=== PATIENT | male | born 1945 | race African-American/Black ===

== ENCOUNTER 2016-03-02 14:28 | Emergency (ER) ==
[2016-03-02 14:40] VITALS: BP 214/116; TEMP 98.6; BMI 43.2
[2016-03-02] MEDS ORDERED: SODIUM CHLORIDE 1,000 ML IV STA (14:50)
[2016-03-02] MEDS ORDERED: MORPHINE 2 MG/ML SYRINGE IVP STA (14:50)
--- NOTE | 2016-03-02 14:55 | ED.PDOC ---
General ED Provider: Dr. GRANT SANCHEZ JR Chief Complaint: Extremity Swelling/Pain Stated Complaint: BOTH LEGS RIGHT HAND SINCE SHAYNA GOUT MEDICATION swelling to both legs and right hand. treated for gout improvED until 2 days ago worse c/o pain [End]98.6 78 20 95% 214/116 11/21 TOOK tylenol and colchicine. swelling right hand and both legs.[End]right hand is painful and swollen patient states he is a little short of breath.[ End ] Time Seen by Physician: 14:49 Mode of Arrival: Wheelchair Information Source: Patient Exam Limitations: No limitations Primary Care Provider: JUAN J NATION Nursing and Triage Documentation Reviewed and Agree: No Review of Systems - Review Of Systems Constitutional: Reports: Malaise Eyes: Reports: No symptoms Ears, Nose, Mouth, Throat: Reports: No symptoms Respiratory: Reports: No symptoms Cardiac: Reports: Edema (right hand arm and both legs) GI: Reports: No symptoms : Reports: No symptoms Musculoskeletal: Reports: Joint swelling, Other Skin: Reports: Other Neurological: Reports: No symptoms Endocrine: Reports: No symptoms Hematologic/Lymphatic: Reports: No symptoms All Other Systems: Other Past Medical History - Past Medical History Endocrine: Reports: DM 2, Dyslipidemia Cardiovascular: Reports: Hypertension, CHF, DVT Respiratory: Reports: PE, Other (pulmonary edema) Hematological: Reports: Unknown Gastrointestinal: Reports: Unknown Genitourinary: Reports: CKD, Unknown Neuro/Psych: Reports: Unknown Musculoskeletal: Reports: Unknown Cancer: Reports: Unknown - Surgical History General Surgical History: Reports: CABG, Orthopedic (LEFT ELBOW FRACTURE REPAIR LEFT FEMUR HAD TO BE SHORTENED.), Unknown - Family History Family History: Reports: Unknown - Social History Smoking Status: Former smoker Hx Substance Use: No Alcohol Screening: None Physical Exam - Physical Exam Appearance: Ill-appearing, Obese Pain Distress: Moderate Neck: Supple Respiratory: Airway patent Skin: Warm (moist edema noted tender ankles and wrist) Neurological: Sensation intact, Motor intact, Reflexes intact, Cranial nerves intact, Alert, Oriented Psychiatric: Affect appropriate, Mood appropriate Interpretation - Radiology Interpretation Radiology Interpretation By: ED Physician Radiology Results: Positive Exam Interpreted: CXR (?LLL INFILTRATE) Re-Evaluation - Re-Evaluation Time of Re-Evaluation: 17:00 Status: Improved (blood pressure) Critical Care Note - Critical Care Note Total Time (mins): 15 Course - Course Hematology/Chemistry: 03/02/16 15:05 03/02/16 15:05 Orders, Labs, Meds: Lab Review 03/02/16 15:05 WBC 7.22 RBC 4.68 L Hgb 12.2 L Hct 39.6 L MCV 84.6 MCH 26.1 L MCHC 30.8 L RDW Coeff of Emerald 18.1 H Plt Count 288 Immature Gran % (Auto) 0.6 Neut % (Auto) 74.5 Lymph % (Auto) 11.4 [place] % (Auto) 11.4 H Eos % (Auto) 1.4 Baso % (Auto) 0.7 Immature Gran # (Auto) 0.0 Neut # 5.4 Lymph # 0.8 [place] # 0.8 Eos # 0.1 Baso # 0.1 D-Dimer 1.27 Sodium 143 Potassium 3.8 Chloride 102 Carbon Dioxide 32 H Anion Gap 12.8 BUN 25 H Creatinine 3.04 H Estimated GFR (MDRD) 25.00 BUN/Creatinine Ratio 8.22 Glucose 129 H Uric Acid 8.8 H Calcium 9.7 Total Bilirubin 0.45 AST 14 L ALT 11 L Alkaline Phosphatase 101 Total Creatine Kinase 69 Troponin I 0.1450 B-Natriuretic Peptide 409 H Total Protein 7.1 Albumin 3.0 L Globulin 4.1 Albumin/Globulin Ratio 0.73 Orders Category Date Time Status EKG-(ED ONLY) Stat CARDIO 03/02/16 14:50 Completed ED STATISTICAL ENGINEER APPLIED .ONCE EMERGENCY 03/02/16 14:50 Active ED IV/MEDIPORT/POWERPORT .ONCE EMERGENCY 03/02/16 14:50 Active ED IV/MEDIPORT/POWERPORT .ONCE EMERGENCY 03/02/16 15:08 Active B-TYPE NATRIURETIC PEPTIDE Stat LAB 03/02/16 15:05 Completed CBC W/ AUTO DIFF Stat LAB 03/02/16 15:05 Completed COMPREHENSIVE METABOLIC PANEL Stat LAB 03/02/16 15:05 Completed CREATINE KINASE Stat LAB 03/02/16 15:05 Completed D-DIMER Stat LAB 03/02/16 15:05 Completed TROPONIN I Stat LAB 03/02/16 15:05 Completed URIC ACID Stat LAB 03/02/16 15:05 Completed 0.9 % Sodium Chloride [Saline Flush] MEDS 03/02/16 14:50 Discontinued 1 syr IVF PRN PRN Bumetanide [Bumex] MEDS 03/02/16 15:08 Discontinued 1 mg IVP ONCE STA Colchicine [Colcrys] MEDS 03/02/16 16:29 Discontinued 0.6 mg PO ONCE STA Ketorolac Tromethamine [Toradol] MEDS 03/02/16 15:08 Discontinued 30 mg IVP ONCE STA Morphine Sulfate [Morphine 2 mg/ml Syringe] MEDS 03/02/16 14:50 Discontinued 2 mg IVP ONCE STA Sodium Chloride 0.9% [Sodium Chloride] 1,000 ml MEDS 03/02/16 14:50 Discontinued IV 100 mls/hr CHEST, 1V AP ONLY Stat RADS 03/02/16 14:50 Completed Medications Discontinued Medications Generic Name Dose Route Start Last Admin Trade Name Freq PRN Reason Stop Dose Admin Bumetanide 1 mg 03/02/16 15:08 03/02/16 15:23 Bumex IVP 03/02/16 15:09 1 mg ONCE STA Administration Colchicine 0.6 mg 03/02/16 16:29 03/02/16 16:44 Colcrys PO 03/02/16 16:30 0.6 mg ONCE STA Administration Sodium Chloride 1,000 mls @ 100 mls/hr 03/02/16 14:50 03/02/16 15:20 Sodium Chloride IV 03/03/16 00:49 100 mls/hr .Q10H STA Administration Ketorolac Tromethamine 30 mg 03/02/16 15:08 03/02/16 15:24 Toradol IVP 03/02/16 15:09 30 mg ONCE STA Administration Morphine Sulfate 2 mg 03/02/16 14:50 03/02/16 15:20 Morphine 2 Mg/Ml Syringe IVP 03/02/16 14:51 2 mg ONCE STA Administration Sodium Chloride 1 syr 03/02/16 14:50 03/02/16 15:26 Saline Flush IVF 1 syr PRN PRN Administration To flush IV Vital Signs: Temp Pulse Resp BP Pulse Ox 03/02/16 14:29 98.6 F 78 20 214/116 H 95 QUIN Risk Score QUIN Risk Score: Risk Score Odds of by 30D 0 0.1 (0.1-0.2) 1 0.3 (0.2-0.3) 2 0.4 (0.3-0.5) 3 0.7 (0.6-0.9) 4 1.2 (1.0-1.5) 5 2.2 (1.9-2.6) 6 3.0 (2.5-3.6) 7 4.8 (3.8-6.1) Departure - Departure Time of Disposition: 16:52 Disposition: HOME SELF-CARE Discharge Problem: Edema of the upper extremity, Edema of lower extremity Gout attack Qualifiers: Gout site: hand Gout etiology: unspecified cause Laterality: right Qualifier Code: (M10.9) Gout, unspecified Instructions: Low Purine Diet (ED), Gout (ED) Condition: Good Pt referred to PMD for follow-up: Yes Additional Instructions: Please follow-up with Dr. Nation in 1-5 days. discuss colchicine with PMD and consider renal consult for medication parameters discuss renal consult with Dr Nation may need to see Dr Leahy may use [place] for pain not controlled Prescriptions: Hydrocodone Bit/Acetaminophen [[place] 5-325] 1 - 2 tab PO Q6HR PRN #20 tablet PRN Reason: pain Colchicine 0.6 mg PO Q2-3H PRN #4 tablet PRN Reason: gout symptoms Allergies/Adverse Reactions: Allergies Penicillins Adverse Reaction (Verified 03/02/16 14:37) Home Medications: Ambulatory Orders Albuterol Sulfate [Proair Hfa] 1 puff INH DAILY 12/17/13 Mometasone Furoate [Nasonex] 1 spray INH DAILY 12/17/13 Nebivolol HCl [Bystolic] 20 mg PO DAILY 12/17/13 Nitroglycerin [Nitrostat] 1 tab PO PRN PRN 12/17/13 Pantoprazole Sodium [Protonix] 1 tab PO DAILY 12/17/13 Apixaban [Eliquis] 2.5 mg PO BID #180 tablet 04/14/15 Ezetimibe [Zetia] 10 mg PO DAILY 04/22/15 Hydralazine HCl 50 mg PO TID #90 tablet 08/09/15 Linagliptin [Tradjenta] 5 mg PO DAILY #30 tablet 08/09/15 Metolazone [Zaroxolyn] 2.5 mg PO DAILY #30 tablet 08/09/15 Bumetanide [Bumex] 1 mg PO MOWEFRSA 09/01/15 Potassium Chloride [K-Tab ER] 10 meq PO MOWEFRSA 09/01/15 Colchicine 0.6 mg PO Q2-3H PRN #4 tablet 03/02/16 Hydrocodone Bit/Acetaminophen [[place] 5-325] 1 - 2 tab PO Q6HR PRN #20 tablet
[2016-03-02] MEDS ORDERED: BUMEX IVP STA (15:08)
[2016-03-02] MEDS ORDERED: TORADOL IVP STA (15:08)
[2016-03-02 15:16] LABS: BASOPHILS # (AUTO) 0.1 K/uL (0-0.2); BASOPHILS % (AUTO) 0.7 % (0.0-3.0); EOSINOPHILS # (AUTO) 0.1 K/ul (0.0-0.7); EOSINOPHILS % (AUTO) 1.4 % (0.0-7.0); HEMATOCRIT 39.6 % (42.0-52.0); HEMOGLOBIN 12.2 g/dl (14.0-18.0); IMMATURE GRANULOCYTE % (AUTO) 0.6 % (0.0-5.0); LYMPHOCYTES # (AUTO) 0.8 K/uL (0.60-3.4); LYMPHOCYTES % (AUTO) 11.4 (10.0-50.0); MEAN CORPUSCULAR HEMOGLOBIN 26.1 pg (27.0-31.0); MEAN CORPUSCULAR HGB CONC 30.8 (31.8-35.4); MEAN CORPUSCULAR VOLUME 84.6 fl (80.0-94.0); MONOCYTES # (AUTO) 0.8 K/uL (0.4-2.0); MONOCYTES % (AUTO) 11.4 (0-10); NEUTROPHILS # (AUTO) 5.4 K/ul (2.0-6.9); NEUTROPHILS % (AUTO) 74.5; PLATELET COUNT 288 10^3/uL (140-440); RED BLOOD COUNT 4.68 10^6/ul (4.70-6.10); WHITE BLOOD COUNT 7.22 K/ul (4.2-10.2)
--- NOTE | 2016-03-02 15:25 | DI ---
EXAM: CHEST FRONTAL VIEW HISTORY: Chest pain. COMPARISON: 09/01/2015 FINDINGS: Prominent heart size is stable. Mild to moderate aortic atherosclerosis. Sternotomy wires are in place. No definite consolidated pneumonia. There is no active congestive heart failure or visible pneumothorax. No visible pleural fluid or acute bony deformity. Exam is limited by portabl e technique and body habitus. IMPRESSION: Aortic atherosclerosis. Prominent heart size. Prior sternotomy. No acute findings.
[2016-03-02 15:39] LABS: ALBUMIN/GLOBULIN RATIO 0.73; ANION GAP 12.8; BILIRUBIN,TOTAL 0.45 mg/dL (0.00-1.20); BUN/CREATININE RATIO 8.22; CALCIUM 9.7 mg/dL (8.2-10.2); CREATININE 3.04 mg/dL (0.60-1.10); POTASSIUM 3.8 mmol/L (3.5-5.1); TOTAL PROTEIN 7.1 g/dL (5.8-8.1); TROPONIN I 0.145 ng/ml (0.0000-0.4000); URIC ACID 8.8 mg/dL (2.6-7.2)
[2016-03-02] MEDS ORDERED: COLCRYS PO STA (16:29)
== END 2016-03-02 17:19 | disposition home or self-care (01) ==
LOC: ED 14:28
DX: M10.9 Gout, unspecified (principal); R60.0 Localized edema; I10 Essential (primary) hypertension; E11.9 Type 2 diabetes mellitus without complications; E78.5 Hyperlipidemia, unspecified; N18.9 Chronic kidney disease, unspecified; Z79.899 Other long term (current) drug therapy; Z95.1 Presence of aortocoronary bypass graft; Z86.711 Personal history of pulmonary embolism; Z86.718 Personal history of other venous thrombosis and embolism
CPT/HCPCS: 36415; 80053; 82550; 83880; 84484; 84550; 85025; 85379; 93005; 93010; 96361; 96374; 96375; 99283

== ENCOUNTER 2016-03-29 11:52 | Inpatient (IN) ==
[2016-03-29 12:29] VITALS: BMI 42.8
[2016-03-29] MEDS ORDERED: MORPHINE 4 MG/ML SYRINGE IVP PRN (13:07)
[2016-03-29] MEDS ORDERED: VISTARIL INJ IM PRN (13:07)
[2016-03-29] MEDS ORDERED: ATROPINE SULFATE PFS IVP PRN (13:07)
[2016-03-29 13:12] LABS: ABG BASE EXCESS 2 (-2.0-2.0); ABG HCO3 24.8 (22.0-26.0); ABG PCO2 32.1 mmHg (35-45); ABG PH 7.497 (7.35-7.45); ABG TCO2 26 (22.0-28.0)
[2016-03-29] MEDS ORDERED: NITROGLYCERIN PO PRN (13:17)
[2016-03-29 13:26] LABS: BASOPHILS # (AUTO) 0.1 K/uL (0-0.2); BASOPHILS % (AUTO) 0.5 % (0.0-3.0); EOSINOPHILS # (AUTO) 0.1 K/ul (0.0-0.7); HEMATOCRIT 36.6 % (42.0-52.0); HEMOGLOBIN 11.7 g/dl (14.0-18.0); IMMATURE GRANULOCYTE % (AUTO) 0.9 % (0.0-5.0); LYMPHOCYTES # (AUTO) 0.8 K/uL (0.60-3.4); LYMPHOCYTES % (AUTO) 5.8 (10.0-50.0); MEAN CORPUSCULAR HEMOGLOBIN 26.1 pg (27.0-31.0); MEAN CORPUSCULAR VOLUME 81.7 fl (80.0-94.0); MONOCYTES # (AUTO) 0.9 K/uL (0.4-2.0); MONOCYTES % (AUTO) 6.6 (0-10); NEUTROPHILS # (AUTO) 11.1 K/ul (2.0-6.9); NEUTROPHILS % (AUTO) 85.2; PLATELET COUNT 241 10^3/uL (140-440); RED BLOOD COUNT 4.48 10^6/ul (4.70-6.10); WHITE BLOOD COUNT 13.03 K/ul (4.2-10.2)
[2016-03-29] MEDS ORDERED: NON-FORMULARY MEDICATION (Potassium Chloride [K-Tab Er] 10 MEQ) PO SCH (13:30)
[2016-03-29] MEDS ORDERED: MUCINEX PO SCH (13:30)
[2016-03-29] MEDS ORDERED: NITROSTAT SL PRN (13:40)
[2016-03-29 13:51] LABS: FLU INTERNAL QC INTERNAL QC VALID; RAPID FLU A NEGATIVE (NEGATIVE); RAPID FLU B NEGATIVE (NEGATIVE)
[2016-03-29 13:59] LABS: ALBUMIN 2.7 g/dL (3.4-5.0); ALBUMIN/GLOBULIN RATIO 0.64; ANION GAP 14.2; BILIRUBIN,TOTAL 1.72 mg/dL (0.00-1.20); BUN/CREATININE RATIO 11.93; CALCIUM 9.3 mg/dL (8.2-10.2); CREATININE 2.43 mg/dL (0.60-1.10); POTASSIUM 4.2 mmol/L (3.5-5.1); TOTAL PROTEIN 6.9 g/dL (5.8-8.1); TROPONIN I 0.117 ng/ml (0.0000-0.4000)
[2016-03-29] MEDS: DUONEB NEB SCH ×2 (14:08→21:20)
[2016-03-29] MEDS: ROCEPHIN 1 GM in SODIUM CHLORIDE 100 ML IV SCH (14:15)
[2016-03-29] MEDS: APRESOLINE PO SCH ×2 (14:16→20:35)
[2016-03-29] MEDS: SOLU-MEDROL 40 MG IVP SCH (14:16)
[2016-03-29] MEDS: MUCINEX DM ER 600-30 MG TABLET PO SCH ×2 (14:16→20:41)
[2016-03-29] MEDS ORDERED: LASIX IVP STA (14:25)
[2016-03-29 14:38] LABS: BILIRUBIN,URINE Negative (NEGATIVE); KETONES,URINE Negative (NEGATIVE); LEUKOCYTE ESTERASE ,URINE Negative (NEGATIVE); NITRITE,URINE Negative (NEGATIVE); PH,URINE 7.5 (5-9); PROTEIN,URINE 3+ (NEGATIVE); URINE, BLOOD Trace-intact (NEGATIVE)
[2016-03-29 14:43] LABS: ADD URINE MICROSCOPIC YES
--- NOTE | 2016-03-29 16:17 | CT ---
Examination: Noncontrasted helical CT imaging of the chest. Comparison: 09/01/2015. Reason for study: Shortness of breath. FINDINGS: 3 mL nodule in the right posterior upper lobe seen on axial image number 35. There is mo saic attenuation with subtle diffuse ground-glass opacities with a slightly apical predominance. No pneumothorax, pleural effusion, focal consolidation. Operative changes are seen after midline ster notomy. The heart remains prominent in size with an implanted cardiac device. Degenerative disease is noted in the thoracic spine. Partially imaged intravenous filter is unremarkable. No osteoblas tic or osteolytic lesions. There is atherosclerotic calcification of the aorta. 1.5 cm hepatic hypodensity unchanged from the prior study is not able to be appropriately characteri ze without intravenous contrast administration. The gallbladder appears unremarkable. Impression: 1. Mosaic attenuation with subtle ground-glass opacities having a slightly apical predominance. Fi ndings are suggestive of hypersensitive pneumonitis, cardiogenic pulmonary edema, and RB-ILD. If cl inical suspicion is high, high-resolution CT examination may be performed. 2. 3 mm nodule in the right posterior upper lobe.
[2016-03-29] MEDS ORDERED: CATAPRES PO STA (17:42)
[2016-03-29] MEDS: HUMULIN R SUBCUT PRN ×2 (17:54→20:41)
[2016-03-29] MEDS: ELIQUIS PO SCH (20:34)
[2016-03-29] MEDS ORDERED: NON-FORMULARY MEDICATION (Apixaban [Eliquis] 2.5 MG) PO SCH (21:00)
[2016-03-29 21:55] LABS: TROPONIN I 0.111 ng/ml (0.0000-0.4000)
[2016-03-29 22:05] LABS: CREATINE KINASE MB 1.4 ng/ml (0.0-3.6)
[2016-03-30] MEDS: SOLU-MEDROL 40 MG IVP SCH ×4 (00:15→21:27)
[2016-03-30] MEDS: DUONEB NEB SCH ×4 (05:02→22:24)
[2016-03-30] MEDS: BUMEX PO SCH (05:56)
[2016-03-30] MEDS: PROTONIX PO SCH (05:56)
[2016-03-30] MEDS: HUMULIN R SUBCUT PRN ×3 (07:00→17:34)
[2016-03-30 07:06] LABS: BASOPHILS % (AUTO) 0.2 % (0.0-3.0); HEMOGLOBIN 12.3 g/dl (14.0-18.0); IMMATURE GRANULOCYTE % (AUTO) 1.2 % (0.0-5.0); LYMPHOCYTES # (AUTO) 0.4 K/uL (0.60-3.4); LYMPHOCYTES % (AUTO) 3.9 (10.0-50.0); MEAN CORPUSCULAR HEMOGLOBIN 25.9 pg (27.0-31.0); MEAN CORPUSCULAR HGB CONC 31.5 (31.8-35.4); MEAN CORPUSCULAR VOLUME 82.1 fl (80.0-94.0); MONOCYTES # (AUTO) 0.1 K/uL (0.4-2.0); MONOCYTES % (AUTO) 1.3 (0-10); NEUTROPHILS # (AUTO) 8.5 K/ul (2.0-6.9); NEUTROPHILS % (AUTO) 93.4; PLATELET COUNT 260 10^3/uL (140-440); RED BLOOD COUNT 4.75 10^6/ul (4.70-6.10); WHITE BLOOD COUNT 9.12 K/ul (4.2-10.2)
[2016-03-30 07:32] LABS: ALBUMIN/GLOBULIN RATIO 0.61; ANION GAP 18.5; BILIRUBIN,TOTAL 1.26 mg/dL (0.00-1.20); BUN/CREATININE RATIO 13.58; CALCIUM 9.9 mg/dL (8.2-10.2); CREATININE 2.65 mg/dL (0.60-1.10); POTASSIUM 4.5 mmol/L (3.5-5.1); TOTAL PROTEIN 7.9 g/dL (5.8-8.1)
[2016-03-30] MEDS ORDERED: NON-FORMULARY MEDICATION (Nebivolol Hcl [Bystolic] 20 MG) PO SCH (09:00)
[2016-03-30] MEDS ORDERED: MOMETASONE FUROATE INH SCH (09:00)
[2016-03-30] MEDS: APRESOLINE PO SCH ×3 (09:28→21:26)
[2016-03-30] MEDS: ASPIRIN EC PO SCH (09:28)
[2016-03-30] MEDS: BYSTOLIC PO SCH (09:29)
[2016-03-30] MEDS: ELIQUIS PO SCH ×2 (09:32→21:25)
[2016-03-30] MEDS: CARDIZEM PO SCH ×2 (09:32→21:26)
[2016-03-30] MEDS: MUCINEX DM ER 600-30 MG TABLET PO SCH ×2 (09:33→21:26)
[2016-03-30] MEDS: ROCEPHIN 1 GM in SODIUM CHLORIDE 100 ML IV SCH (09:34)
--- NOTE | 2016-03-30 09:35 | HP ---
DATE OF SERVICE: 03/29/16 REASON FOR HOSPITALIZATION/HISTORY OF PRESENT ILLNESS: Started with coughing/congestions, shortness of breath and getting lots of yellow sputum, sinus headaches. Worsening shortness of breath, orthopnea and PND. REVIEW OF SYSTEMS: CONSTITUTIONAL: No fever, no fatigue. HEENT: Sinus drainage, no sore throat. RESPIRATORY: Cough, no congestion. CARDIOVASCULAR: No atypical chest pain for coronary artery disease. No angina , CHF symptoms, palpitations or shortness of breath. GASTROINTESTINAL: No melena or abdominal pain. No GERD. GENITOURINARY: No hematuria, no prostatism, no polyuria. SOAP MAKER: No blackout, no dizziness, no headache, no double vision. Gait: Wheelchair. MUSCULOSKELETAL: Osteoarthritis pain, no joint swelling. ENDOCRINE: No weight loss, no weight gain. SKIN: Not dry, no rash. PSYCHIATRIC: Anxious, no depression, no suicidal thoughts, no homicidal thoughts. SOCIAL HISTORY: Marital Status: . Alcohol Usage: No. Tobacco Usage: No. PAST SURGICAL HISTORY: CABG 2001 Elbow surgery, left IVC filter MEDICATIONS: Protonix 40mg PO daily Nitrostat 0.3mg PO PRN Bystolic 20mg PO daily Nasonex one spray daily ProAir one puff Q 6 hours PRN Eliquis 2.5mg PO twice a day Zetia 10mg PO daily Hydralazine HCL 50mg PO three times a day Tradjenta 5mg PO daily Bumex 1mg PO daily K-Tab ER 10meq Tylenol 500mg PO Q 6 hours PRN ALLERGIES: Penicillin PHYSICAL EXAMINATION: V/S: Pulse 83, blood pressure 144/98, temperature 94.7and O2 Sat 92%. GENERAL APPEARANCE: Oriented times three. HEENT: Normal. NECK: No JVP, no bruits. RESPIRATORY: Clear with decreased entry and basal crackles. CARDIOVASCULAR: S1, S2, no S3, no murmurs. No cyanosis, clubbing. No ascites. GI/ABDOMEN: No tenderness. Bowel sounds are active. EXTREMITIES: edema, pulses +2 legs, equal. SOAP MAKER: Deep tendon reflexes, sensory, motor and gait all normal. RECTAL: Colonoscopy 2007, . PELVIC: Foot care discussed. PROSTATE: 08/26 ( 1.7). ASSESSMENT: 1. URTI/ Bronchitis-shortness of breath 2. Diabetes Mellitus 3. Hypertension 4. Dyslipidemia 5. Coronary artery disease, CABG 6. Congestive heart failure 7. Sleep apnea on CPAP 8. History of DVT/PE 9. Atrial fibrillation 10. Neuropathy 11. Gout 12. Chronic kidney disease, stage 4 PLAN: 1. Admit to regular floor with telemetry protocol 2. CBC, CMP, BNP and ABG on room air. 3. CT chest without contrast 4. O2 2 liters nasal cannula 5. Diabetes Mellitus diet 6. Rapid Flu A&B 7. Normal saline at saline lock 8. DUO NEBS- four times a day 9. Solu-Medrol 40 Q 8 hours 10.Rocephin 1 gram IV daily 11.Mucinex DM 600mg PO twice a day 12.Accu-checks with regular insulin Q 6 hours 13.Continue home medications. TIME SPENT: More than 70 minutes. MTDD
[2016-03-30] MEDS: FLONASE NAS SCH (09:40)
[2016-03-30] MEDS: ZETIA PO SCH (09:48)
[2016-03-30] MEDS: TRADJENTA PO SCH (09:48)
[2016-03-30] MEDS: TYLENOL PO PRN (21:26)
[2016-03-31] MEDS: XOPENEX 1.25 MG NEB SCH ×4 (04:48→23:26)
[2016-03-31] MEDS: SOLU-MEDROL 40 MG IVP SCH ×3 (05:45→20:59)
[2016-03-31] MEDS ORDERED: XOPENEX 1.25 MG NEB PRN (06:00)
[2016-03-31 06:21] LABS: BASOPHILS % (AUTO) 0.1 % (0.0-3.0); HEMATOCRIT 36.7 % (42.0-52.0); HEMOGLOBIN 11.7 g/dl (14.0-18.0); LYMPHOCYTES # (AUTO) 0.3 K/uL (0.60-3.4); LYMPHOCYTES % (AUTO) 2.4 (10.0-50.0); MEAN CORPUSCULAR HEMOGLOBIN 26.2 pg (27.0-31.0); MEAN CORPUSCULAR HGB CONC 31.9 (31.8-35.4); MEAN CORPUSCULAR VOLUME 82.3 fl (80.0-94.0); MONOCYTES # (AUTO) 0.2 K/uL (0.4-2.0); MONOCYTES % (AUTO) 1.8 (0-10); NEUTROPHILS # (AUTO) 10.9 K/ul (2.0-6.9); NEUTROPHILS % (AUTO) 94.7; PLATELET COUNT 287 10^3/uL (140-440); RED BLOOD COUNT 4.46 10^6/ul (4.70-6.10); WHITE BLOOD COUNT 11.48 K/ul (4.2-10.2)
[2016-03-31] MEDS: BUMEX PO SCH (06:34)
[2016-03-31] MEDS: PROTONIX PO SCH (06:34)
[2016-03-31 06:42] LABS: ALBUMIN 2.9 g/dL (3.4-5.0); ALBUMIN/GLOBULIN RATIO 0.69; ANION GAP 18.3; BILIRUBIN,TOTAL 0.43 mg/dL (0.00-1.20); BUN/CREATININE RATIO 15.35; CALCIUM 9.5 mg/dL (8.2-10.2); CREATININE 2.93 mg/dL (0.60-1.10); POTASSIUM 4.3 mmol/L (3.5-5.1); TOTAL PROTEIN 7.1 g/dL (5.8-8.1)
[2016-03-31] MEDS: HUMULIN R SUBCUT PRN ×4 (06:49→20:33)
[2016-03-31] MEDS ORDERED: LANOXIN IVP STA (08:07)
[2016-03-31] MEDS: ROCEPHIN 1 GM in SODIUM CHLORIDE 100 ML IV SCH (08:37)
[2016-03-31] MEDS: ZETIA PO SCH (08:37)
[2016-03-31] MEDS: MICRO-K CAP PO SCH (08:37)
[2016-03-31] MEDS: BYSTOLIC PO SCH (08:37)
[2016-03-31] MEDS: TRADJENTA PO SCH (08:37)
[2016-03-31] MEDS: FLONASE NAS SCH (08:38)
[2016-03-31] MEDS: APRESOLINE PO SCH ×3 (08:38→20:46)
[2016-03-31] MEDS: CARDIZEM PO SCH ×2 (08:38→20:47)
[2016-03-31] MEDS: ELIQUIS PO SCH ×2 (08:38→20:45)
[2016-03-31] MEDS: ASPIRIN EC PO SCH (08:38)
[2016-03-31] MEDS: MUCINEX DM ER 600-30 MG TABLET PO SCH ×2 (08:38→20:45)
--- NOTE | 2016-03-31 10:09 | PCM.PROG ---
Attending Provider: ATTENDING PROVIDER: Dr. ALIYA GUZMAN DATE OF SERVICE: 03/31/16 SUBJECTIVE: This 71 year old BLACK/ M was hospitalized 03/29/16. The patient is admitted with CHF exacerbation. Blood pressure has been high. Heart rate is higher than 120 but clinically is better. He is coughing less, less shortness of breath. Awaiting echocardiogram to be done today. REVIEW OF SYSTEMS: CONSTITUTIONAL: No fever, no chills. ENDOCRINE: No weight loss or weight gain. HEENT: No sinus drainage, no sore throat. CVS: No angina symptoms. No CHF symptoms. No palpitations. No atypical chest pain for CAD. No shortness of breath. RESPIRATORY: No cough, no hemoptysis. GI: No melena. No abdominal pain. No nausea, no vomiting. : No hematuria. No polyuria. SKIN: No rash. No wounds. MUSCULOSKELETAL: No pain. ELECTRONIC MASKING SYSTEM OPERATOR: No blackout, no dizziness. No headache. No double vision. PSYCHIATRIC: Not anxious; no depression. No suicidal thoughts. No homicidal thoughts. PHYSICAL EXAMINATION: GENERAL: Lying in bed in no distress. VITAL SIGNS: Temperature 97.1 F, Pulse 90, Respiratory Rate 17, BP 180/110, Pulse Ox 96% HEENT: Normocephalic, atraumatic. Mucosa is dry, pallor positive. NECK: No JVP, no carotid bruit. No lymphadenopathy. CARDIAC: Sinus tachy. S1, S2, no S3. No murmur, gallop or regurgitation. LUNGS: Decreased entry. Clear to auscultation. ABDOMEN: Soft, non-tender. Bowel sounds active. No rigidity, guarding or CVA tenderness. EXTREMITIES: Edema 1+ lower extremities (wrinkling of skin) better. No clubbing or cyanosis. NEUROLOGIC: Awake, alert and oriented x3. LYMPHATIC: No palpable lymph nodes SKIN: Not dry. Intact. MUSCULOSKELETAL: No joint swelling. LAB REVIEW: 03/31/16 06:00 03/31/16 06:00 03/31/16 06:00: WBC 11.48 H, RBC 4.46 L, Hgb 11.7 L, Hct 36.7 L, MCV 82.3, MCH 26.2 L, MCHC 31.9, RDW Coeff of Emerlad 19.6 H, Plt Count 287, Immature Gran % (Auto ) 1.0, Neut % (Auto) 94.7, Lymph % (Auto) 2.4 L, [place] % (Auto) 1.8, Eos % (Auto ) 0.0, Baso % (Auto) 0.1, Immature Gran # (Auto) 0.1, Neut # 10.9 H, Lymph # 0.3 L, [place] # 0.2 L, Eos # 0.0, Baso # 0.0, Sodium 142, Potassium 4.3, Chloride 103, Carbon Dioxide 25, Anion Gap 18.3, BUN 45 H, Creatinine 2.93 H, Estimated GFR (MDRD) 26.00, BUN/Creatinine Ratio 15.35, Glucose 315 H D, Calcium 9.5, Total Bilirubin 0.43, AST 13 L, ALT 12, Alkaline Phosphatase 83, Total Protein 7.1, Albumin 2.9 L, Globulin 4.2, Albumin/Globulin Ratio 0.69 ASSESSMENT: 1. Acute on chronic heart failure 2. URI 3. Atrial fibrillation, uncontrolled 4. Hypertension, labile 5. Diabetes mellitus type 2 6. Dyslipidemia 7. History of diastolic heart failure with pulmonary hypertension 8. History of gout 9. Chronic kidney disease 10. Anxiety PLAN: 1. Digoxin 0.25 mg IV push 2. Increase Hydralazine to 100 mg t.i.d. 3. Elevate legs 4. Echocardiogram today 5. Medication side effects discussed with the patient and spouse Plan and coordination of the patient's care discussed in the presence of Marine Mechanic and nurse. CONDITION: Stable SCRIBED BY: ERICKA ANDERSON Dry Color Mixer scribed while in presence of service performed by Dr. ALIYA GUZMAN on 03/31/16 ([id number])
[2016-03-31] MEDS: TYLENOL PO PRN (18:27)
[2016-03-31] MEDS: KEFLEX PO SCH (20:45)
[2016-04-01] MEDS: XOPENEX 1.25 MG NEB SCH ×4 (05:17→23:26)
[2016-04-01] MEDS: HUMULIN R SUBCUT PRN ×4 (05:41→20:24)
[2016-04-01] MEDS: PROTONIX PO SCH (05:42)
[2016-04-01] MEDS: BUMEX PO SCH (05:42)
[2016-04-01] MEDS: SOLU-MEDROL 40 MG IVP SCH (06:29)
[2016-04-01 07:47] LABS: BASOPHILS % (AUTO) 0.1 % (0.0-3.0); HEMOGLOBIN 12.1 g/dl (14.0-18.0); IMMATURE GRANULOCYTE % (AUTO) 1.9 % (0.0-5.0); LYMPHOCYTES # (AUTO) 0.3 K/uL (0.60-3.4); LYMPHOCYTES % (AUTO) 2.9 (10.0-50.0); MEAN CORPUSCULAR HEMOGLOBIN 26.2 pg (27.0-31.0); MEAN CORPUSCULAR HGB CONC 31.8 (31.8-35.4); MEAN CORPUSCULAR VOLUME 82.3 fl (80.0-94.0); MONOCYTES # (AUTO) 0.3 K/uL (0.4-2.0); MONOCYTES % (AUTO) 2.2 (0-10); NEUTROPHILS % (AUTO) 92.9; PLATELET COUNT 319 10^3/uL (140-440); RED BLOOD COUNT 4.62 10^6/ul (4.70-6.10); WHITE BLOOD COUNT 11.79 K/ul (4.2-10.2)
[2016-04-01 08:22] LABS: ALANINE AMINOTRANSFERASE 13 U/L (12-78); ALBUMIN 3.1 g/dL (3.4-5.0); ALBUMIN/GLOBULIN RATIO 0.72; ALKALINE PHOSPHATASE 78 U/L (56-119); ANION GAP 18.2; ASPARTATE AMINO TRANSFERASE 14 U/L (15-37); BILIRUBIN,TOTAL 0.32 mg/dL (0.00-1.20); BLOOD UREA NITROGEN 52 mg/dL (7-18); CALCIUM 9.5 mg/dL (8.2-10.2); CARBON DIOXIDE 23 mmol/L (23-31); CHLORIDE 104 mmol/L (98-107); CREATININE 2.92 mg/dL (0.60-1.10); GLUCOSE 252 mg/dL (82-115); POTASSIUM 4.2 mmol/L (3.5-5.1); SODIUM 141 mmol/L (136-145); TOTAL PROTEIN 7.4 g/dL (5.8-8.1)
[2016-04-01] MEDS: MICRO-K CAP PO SCH (09:09)
[2016-04-01] MEDS: KEFLEX PO SCH ×2 (09:09→20:09)
[2016-04-01] MEDS: FLONASE NAS SCH (09:09)
[2016-04-01] MEDS: APRESOLINE PO SCH ×3 (09:10→20:08)
[2016-04-01] MEDS: ASPIRIN EC PO SCH (09:10)
[2016-04-01] MEDS: TRADJENTA PO SCH (09:10)
[2016-04-01] MEDS: BYSTOLIC PO SCH (09:11)
[2016-04-01] MEDS: ELIQUIS PO SCH ×2 (09:11→20:09)
[2016-04-01] MEDS: MUCINEX DM ER 600-30 MG TABLET PO SCH ×2 (09:11→20:09)
[2016-04-01] MEDS: ZETIA PO SCH (09:11)
[2016-04-01] MEDS: CARDIZEM PO SCH ×3 (09:11→20:54)
[2016-04-01 09:14] LABS: DIGOXIN < 0.30 ng/mL (1.00-2.00)
[2016-04-01] MEDS: XANAX PO SCH ×2 (10:19→20:09)
[2016-04-01] MEDS ORDERED: VASOTEC IV IVP STA (11:48)
[2016-04-01] MEDS: SODIUM CHLORIDE 500 ML IV SCH (18:37)
[2016-04-02 05:03] LABS: BASOPHILS % (AUTO) 0.2 % (0.0-3.0); HEMATOCRIT 34.4 % (42.0-52.0); HEMOGLOBIN 11.1 g/dl (14.0-18.0); IMMATURE GRANULOCYTE % (AUTO) 1.9 % (0.0-5.0); LYMPHOCYTES # (AUTO) 0.4 K/uL (0.60-3.4); LYMPHOCYTES % (AUTO) 4.1 (10.0-50.0); MEAN CORPUSCULAR HEMOGLOBIN 26.6 pg (27.0-31.0); MEAN CORPUSCULAR HGB CONC 32.3 (31.8-35.4); MEAN CORPUSCULAR VOLUME 82.3 fl (80.0-94.0); MONOCYTES # (AUTO) 0.5 K/uL (0.4-2.0); MONOCYTES % (AUTO) 4.8 (0-10); NEUTROPHILS # (AUTO) 8.8 K/ul (2.0-6.9); PLATELET COUNT 265 10^3/uL (140-440); RED BLOOD COUNT 4.18 10^6/ul (4.70-6.10); WHITE BLOOD COUNT 9.88 K/ul (4.2-10.2)
[2016-04-02] MEDS: XOPENEX 1.25 MG NEB SCH ×4 (05:24→23:39)
[2016-04-02 05:28] LABS: ALBUMIN 2.7 g/dL (3.4-5.0); ALBUMIN/GLOBULIN RATIO 0.75; ANION GAP 13.5; BILIRUBIN,TOTAL 0.32 mg/dL (0.00-1.20); BUN/CREATININE RATIO 19.73; CALCIUM 8.9 mg/dL (8.2-10.2); CREATININE 2.99 mg/dL (0.60-1.10); POTASSIUM 4.5 mmol/L (3.5-5.1); TOTAL PROTEIN 6.3 g/dL (5.8-8.1)
[2016-04-02] MEDS: CARDIZEM PO SCH ×3 (05:31→20:39)
[2016-04-02] MEDS: BUMEX PO SCH (05:31)
[2016-04-02] MEDS: PROTONIX PO SCH (05:31)
[2016-04-02] MEDS: HUMULIN R SUBCUT PRN ×4 (05:52→20:42)
[2016-04-02] MEDS: KEFLEX PO SCH ×2 (08:30→20:41)
[2016-04-02] MEDS: APRESOLINE PO SCH ×3 (08:30→20:41)
[2016-04-02] MEDS: ELIQUIS PO SCH ×2 (08:31→20:40)
[2016-04-02] MEDS: BYSTOLIC PO SCH (08:31)
[2016-04-02] MEDS: ZETIA PO SCH (08:32)
[2016-04-02] MEDS: ASPIRIN EC PO SCH (08:32)
[2016-04-02] MEDS: MUCINEX DM ER 600-30 MG TABLET PO SCH ×2 (08:32→20:41)
[2016-04-02] MEDS: TRADJENTA PO SCH (08:32)
[2016-04-02] MEDS: XANAX PO SCH ×2 (08:32→20:40)
[2016-04-02] MEDS: FLONASE NAS SCH (08:37)
[2016-04-02] MEDS: SODIUM CHLORIDE 500 ML IV SCH (13:18)
--- NOTE | 2016-04-02 14:35 | PCM.PROG ---
Subjective: Was admitted with acute on chronic heart failure, Bp is getting better, shortness of breath is better, has some coughing, no fever or chills. walking some. patients is bed side. Objective: Vitals: T=97 F, P=78, R=18, RY=751/98, SPO2=99 HEENT: Atraumatic, normocephalic, no pallor or icterus, morbidly obese man on bed. not in distress Neck: Neck supple, no JVD, no bruit no lymphadenopathy Lungs: Lungs bilateral air entry equal and decreased. no added sounds, no rhonchi or wheezing CVS: S1-S2 normal, no murmur or gallop, no S3 or S4 Abdomen: Abdomen soft and nontender. Bowel sounds are positive no ascites or organomegaly Extremities: 2+ve edema in both legs with lots of wrinkles. cyanosis, or clubbing Neurological: Awake alert and oriented x3, no motor deficit, cranial nerves II through XII are intact, no CVA Skin: Skin has no open lesions Plan: Acute on chronic heart failure ACUTE ON CHRONIC RENAL FAILURE Atrial fibrillation r/c Labile HTN bronchitis DM 2 DYSLIPEDEMIA Dependent edema h/o DVT Plan keep legs elevated no salt diet IVF 30 ml/hr Continue eliquis
[2016-04-02] MEDS ORDERED: LANOXIN IVP STA (15:00)
[2016-04-02] MEDS ORDERED: COREG ONE (15:08)
[2016-04-02] MEDS: COREG PO SCH ×2 (15:13→17:32)
[2016-04-02] MEDS ORDERED: SODIUM CHLORIDE 1,000 ML IV SCH (22:30)
[2016-04-03] MEDS: XOPENEX 1.25 MG NEB SCH ×2 (05:18→11:08)
[2016-04-03] MEDS: CARDIZEM ONE ×2 (05:29→05:42)
[2016-04-03] MEDS: PROTONIX PO SCH (05:30)
[2016-04-03] MEDS: BUMEX PO SCH (05:30)
[2016-04-03] MEDS: CARDIZEM PO SCH ×2 (05:42→13:50)
[2016-04-03] MEDS: HUMULIN R SUBCUT PRN ×2 (06:22→12:18)
[2016-04-03 06:24] LABS: BASOPHILS % (AUTO) 0.2 % (0.0-3.0); EOSINOPHILS # (AUTO) 0.1 K/ul (0.0-0.7); EOSINOPHILS % (AUTO) 0.8 % (0.0-7.0); HEMATOCRIT 36.7 % (42.0-52.0); HEMOGLOBIN 11.7 g/dl (14.0-18.0); IMMATURE GRANULOCYTE % (AUTO) 1.9 % (0.0-5.0); LYMPHOCYTES % (AUTO) 10.8 (10.0-50.0); MEAN CORPUSCULAR HEMOGLOBIN 26.5 pg (27.0-31.0); MEAN CORPUSCULAR HGB CONC 31.9 (31.8-35.4); MONOCYTES # (AUTO) 0.7 K/uL (0.4-2.0); MONOCYTES % (AUTO) 7.9 (0-10); NEUTROPHILS # (AUTO) 7.3 K/ul (2.0-6.9); NEUTROPHILS % (AUTO) 78.4; PLATELET COUNT 273 10^3/uL (140-440); RED BLOOD COUNT 4.42 10^6/ul (4.70-6.10); WHITE BLOOD COUNT 9.31 K/ul (4.2-10.2)
[2016-04-03 06:50] LABS: ALBUMIN 2.6 g/dL (3.4-5.0); ALBUMIN/GLOBULIN RATIO 0.74; ANION GAP 10.2; BILIRUBIN,TOTAL 0.26 mg/dL (0.00-1.20); BUN/CREATININE RATIO 21.28; CALCIUM 8.6 mg/dL (8.2-10.2); CREATININE 2.96 mg/dL (0.60-1.10); DIGOXIN 0.46 ng/mL (1.00-2.00); POTASSIUM 4.2 mmol/L (3.5-5.1); TOTAL PROTEIN 6.1 g/dL (5.8-8.1)
[2016-04-03] MEDS ORDERED: LANOXIN PO SCH (08:00)
[2016-04-03] MEDS: KEFLEX PO SCH (08:50)
[2016-04-03] MEDS: APRESOLINE PO SCH ×2 (08:50→15:06)
[2016-04-03] MEDS: COREG PO SCH (08:50)
[2016-04-03] MEDS: ZETIA PO SCH (08:50)
[2016-04-03] MEDS: MICRO-K CAP PO SCH (08:51)
[2016-04-03] MEDS: TRADJENTA PO SCH (08:51)
[2016-04-03] MEDS: MUCINEX DM ER 600-30 MG TABLET PO SCH (08:51)
[2016-04-03] MEDS: XANAX PO SCH (08:51)
[2016-04-03] MEDS: ELIQUIS PO SCH (08:51)
[2016-04-03] MEDS: ASPIRIN EC PO SCH (08:52)
--- NOTE | 2016-04-03 09:50 | PN ---
DATE OF SERVICE: 04/01/16 SUBJECTIVE: The patient was admitted with the acute heart failure. His breathing is getting better but the blood pressure has been high. Medication Hydralazine was increased to 200 three times a day, Xanax been added and still it is high but he is up and about and walking. REVIEW OF SYSTEMS: CONSTITUTIONAL: No fever, no chills. HEENT: Normal. ENDOCRINE: No weight gain, no weight loss. CVS: No angina symptoms. No CHF symptoms. No palpitations. No atypical chest pain for CAD. No shortness of breath. No PND, no orthopnea. RESPIRATORY: No cough, no hemoptysis. GI: No nausea, no vomiting. No abdominal pain. : No hematuria. No polyuria. MUSCULOSKELETAL:. No joint swelling. PSYCHIATRIC: Not anxious. No depression. No suicidal thoughts. No homicidal thoughts. SKIN: Intact. No rash. PHYSICAL EXAMINATION: V/S: Blood pressure 116/96, respiratory 20, heart rate 79 and temperature 97.3. GENERAL: The patient is sitting in the bed and not in distress. HEENT: Normocephalic, atraumatic. Ears, eyes, nose and throat normal. Mucosa dry. Pallor positive. No icterus. NECK: Supple. No JVD, no carotid bruit. No lymphadenopathy. LUNGS:Decreased and Clear to auscultation. No rales or rhonchi. HEART: S1, S2 normal. No S3. No murmur, gallop or regurgitation. ABDOMEN: Obese. Soft, nontender. Bowel sounds active. No rigidity. No rebound or guarding. No CVA tenderness. EXTREMITIES: 2+ edema with a lot of wrinkles on the legs. No clubbing or cyanosis. MUSCULOSKELETAL: No joint swelling. NEUROLOGIC: Awake, alert, oriented times three. No focal deficit. LYMPHATIC: No lymph nodes palpable. SKIN: Intact. LABS: WBC 11.79, hgb 12.1, hct 38.0, plt count 319, sodium 141, potassium 4.2, chloride 104, bicarb 23, BUN 52 and creatinine 2.92. ASSESSMENT: 1. Acute on chronic heart failure 2. Acute on chronic renal failure 3. Hypertension, labile 4. History of diabetes 5. Dyslipidemia 6. Pulmonary hypertension 7. Dependant edema 8. Atrial fibrillation, on Apixaban 9. History of DVT PLAN: 1. Increase the Hydralazine to 100mg three times a day 2. Cardizem 60mg three times a day 3. Enalaprilat 1.25mg IV push X1 dose 4. Daily I&O's Will follow the patient in daily rounds. TIME SPENT: More than 30 minutes MTDD
--- NOTE | 2016-04-03 09:57 | PCM.PROG ---
Attending Provider: ATTENDING PROVIDER: Dr. ALIYA GUZMAN DATE OF SERVICE: 04/03/16 SUBJECTIVE: This 71 year old BLACK/ M was hospitalized 03/29/16. The patient is sitting in bed no distress. He is feeling better. He has no chest pain, PND or orthopnea. Blood pressure is improved. Heart rate is under control. The is in room. Lower extremity edema is improved with wrinkling of the skin. REVIEW OF SYSTEMS: CONSTITUTIONAL: No fever, no chills. ENDOCRINE: No weight loss or weight gain. HEENT: No sinus drainage, no sore throat. CVS: No angina symptoms. No CHF symptoms. No palpitations. No atypical chest pain for CAD. No shortness of breath. RESPIRATORY: No cough, no hemoptysis. GI: No melena. No abdominal pain. No nausea, no vomiting. : No hematuria. No polyuria. SKIN: No rash. No wounds. MUSCULOSKELETAL: No pain. IMPLANT COORDINATOR: No blackout, no dizziness. No headache. No double vision. PSYCHIATRIC: Not anxious; no depression. No suicidal thoughts. No homicidal thoughts. PHYSICAL EXAMINATION: GENERAL: Lying in bed in no distress. VITAL SIGNS: Temperature 97.5 F, Pulse 60, Respiratory Rate 20, BP 167/88, Pulse Ox 95% HEENT: Normocephalic, atraumatic. Mucosa is dry, pallor positive. NECK: No JVP, no carotid bruit. No lymphadenopathy. CARDIAC: S1, S2, no S3. No murmur, gallop or regurgitation. LUNGS: Decreased breath sounds. Clear to auscultation. ABDOMEN: Soft, non-tender. Bowel sounds active. No rigidity, guarding or CVA tenderness. EXTREMITIES: Edema is 1+ with wrinkling of the lower extremities. No clubbing , no cyanosis. NEUROLOGIC: Awake, alert and oriented x3. LYMPHATIC: No palpable lymph nodes SKIN: Not dry. Intact. MUSCULOSKELETAL: No joint swelling. LAB REVIEW: 04/03/16 06:15 04/03/16 06:15 04/03/16 06:15: WBC 9.31, RBC 4.42 L, Hgb 11.7 L, Hct 36.7 L, MCV 83.0, MCH 26.5 L, MCHC 31.9, RDW Coeff of Emerald 19.6 H, Plt Count 273, Immature Gran % (Auto ) 1.9, Neut % (Auto) 78.4, Lymph % (Auto) 10.8, [place] % (Auto) 7.9, Eos % (Auto) 0.8, Baso % (Auto) 0.2, Immature Gran # (Auto) 0.2, Neut # 7.3 H, Lymph # 1.0, [place] # 0.7, Eos # 0.1, Baso # 0.0, Sodium 138, Potassium 4.2, Chloride 105, Carbon Dioxide 27, Anion Gap 10.2, BUN 63 H*, Creatinine 2.96 H, Estimated GFR ( MDRD) 25.00, BUN/Creatinine Ratio 21.28, Glucose 155 H, Calcium 8.6, Total Bilirubin 0.26, AST 13 L, ALT 12, Alkaline Phosphatase 78, Total Protein 6.1, Albumin 2.6 L, Globulin 3.5, Albumin/Globulin Ratio 0.74, Digoxin 0.46 L ASSESSMENT: 1. Acute on chronic heart failure 2. Acute on chronic renal failure 3. Atrial fibrillation, rate controlled 4. Labile HTN 5. Bronchitis 6. DM 2 7. Dyslipidemia 8. Dependent edema 9. History of DVT PLAN: 1. Digitalis 0.125 mg daily 2. Decrease Bumex to every other day 3. Will get appointment with Dr. Leahy as an outpatient 4. Keep legs elevated Plan and coordination of the patient's care discussed in the presence of Mysql Developer and nurse. CONDITION: Stable SCRIBED BY: ERICKA ANDERSON Color Print Inspector scribed while in presence of service performed by Dr. ALIYA GUZMAN on 04/03/16 ([id number])
--- NOTE | 2016-04-03 11:43 | ECHO2D ---
Date of Exam: 03/31/16 Ordering Physician: JUAN J NATION Reason for Echo: SOB, EDEMA, HTN, CAD, CHF M-Mode Normal Adult Results LV Dimensions Normal Adult Results AoV Opening excursions >1.6 >1.6 LVEDD-base- 3.5-5.8 4.9 Ao root dimensions 2.0-3.7 3.7 LVESD-base- 3.1-4.6 L. Atrium dimensions 1.9-3.8 6.6 Post. Wall thickness 0.8-1.1 1.6 IV septum (thickness) 0.7-1.2 1.4 Post. Wall excursion 0.72-1.3 NORMAL Septal motion NORMAL Systolic motion R. Ventricular cavity 1.5-2.0 NORMAL LVEF 60% 66% Paradoxical septal wall motion NORMAL 2-D : NORMAL VALVES--NORMAL LEFT VENTRICULAR CONTRACTILITY--NO EFFUSION, NO THROMBUS, ENLARGED LEFT ATRIAL CAVITY--NORMAL LEFT VENTRICULAR CONTRACTILITY M-MODE: MV: NORMAL AV: NORMAL TV: NORMAL PV: CHAMBER SIZE: ENLARGED LEFT ATRIAL CAVITY WALL MOTION: NORMAL PERICARDIUM: NORMAL INTERPRETATION: 1. MODERATE LEFT VENTRICULAR HYPERTROPHY WITH MARKEDLY ENLARGED LEFT ATRIAL CAVITY 2. NORMAL LEFT VENTRICULAR CONTRACTILITY 3. NORMAL VALVES MTDD
[2016-04-03] MEDS: FLONASE NAS SCH (12:00)
--- NOTE | 2016-04-03 13:40 | CM.DICTOOL ---
ADMISSION: 03/29/16 11:52 DISCHARGE: 04/03/16 DATE OF SERVICE: 04/03/16 FINAL DIAGNOSIS BRONCHITIS PULMONARY EDEMA ATRIAL FIBRILLATION/FLUTTER WITH RVR (NEW LANOXIN) (ELIQUIS) HYPERTENSION CHRONIC RENAL DISEASE (DR. SEVILLA) CAD CHF HISTORY OF GI BLEED LEFT FEMORAL DVT, PAST AND RECURRENT (03/26/15) OBSTRUCTIVE SLEEP APNEA ([facility] SLEEP STUDY 09/28/15) HISTORY OF PULMONARY EMBOLISM CHRONIC LOWER EXTREMITY EDEMA AND DERMATITIS DM, TYPE 2 CABG, 1999 CARDIAC STENT, 2001 COLONOSCOPY, 2007 LAST VITALS Temp Pulse Resp BP Pulse Ox 97.5 F L 64 20 167/88 H 95 04/03/16 06:00 04/03/16 08:54 04/03/16 06:00 04/03/16 06:00 04/03/16 06:00 ACTIVE MEDICATIONS Acetaminophen (Tylenol) 500 mg PO Q6H PRN PRN Reason: pain Last Admin: 03/31/16 18:27 Dose: 500 mg Alprazolam (Xanax) 0.5 mg PO BID [facility] (NEW) Last Admin: 04/03/16 08:51 Dose: 0.5 mg Apixaban (Eliquis) 2.5 mg PO BID [facility] Last Admin: 04/03/16 08:51 Dose: 2.5 mg Bumetanide (Bumex) 1 mg PO EVERY OTHER DAY [facility] (DECREASED FROM DAILY) Carvedilol (Coreg) 25 mg PO BIDWM [facility] (NEW) Last Admin: 04/03/16 08:50 Dose: 25 mg Cephalexin (Keflex) 500 mg PO Q12HR x5 DAYS [facility] ([facility]) Stop: 04/05/16 20:59 Last Admin: 04/03/16 08:50 Dose: 500 mg Digoxin (Lanoxin) 125 mcg PO MOTUWETHFRSA [facility] ([facility]) Last Admin: 04/03/16 08:54 Dose: 125 mcg Diltiazem HCl (Cardizem) 60 mg PO Q8HR [facility] ([facility]) Last Admin: 04/03/16 05:42 Dose: Not Given Ezetimibe (Zetia) 10 mg PO DAILY [facility] Last Admin: 04/03/16 08:50 Dose: 10 mg Hydralazine HCl (Apresoline) 100 mg PO TID [facility] (INCREASED FROM 50 MG PO TID) Last Admin: 04/03/16 08:50 Dose: 100 mg Linagliptin (Tradjenta) 5 mg PO DAILY [facility] Last Admin: 04/03/16 08:51 Dose: 5 mg Mometasone Furoate (Nasonex) 1 spray INH DAILY Nitroglycerin (Nitrostat) 0.4 mg SL Q5MIN X 3 DOSES PRN PRN Reason: CHEST PAIN Pantoprazole Sodium (Protonix) 40 mg PO QDAC [facility] Last Admin: 04/03/16 05:30 Dose: 40 mg Potassium Chloride (Micro-K Cap) 10 meq PO [id number] [facility] Last Admin: 04/03/16 08:51 Dose: 10 me DENOTES MEDICATION CHANGES OR ADDITIONS MADE DURING THIS HOSPITAL STAY THAT WILL BE CONTINUED AT DISCHARGE ALLERGIES Penicillins Adverse Reaction (Verified 03/02/16 14:37) NEW PRESCRIPTIONS: RESUME YOUR HOME MEDICATIONS PER LIST PROVIDED BY THE NURSING STAFF NOTE THE DECREASE IN YOUR BUMEX TO 1 MG BY MOUTH EVERY OTHER DAY (MON, WED, FRI AND SAT) NOTE THE INCREASE IN YOUR HYDRALAZINE HCL (APRESOLINE) TO 100 MG BY MOUTH THREE TIMES DAILY DO NOT TAKE YOUR NEBIVOLOL HCL(BYSTOLIC) NEW PRESCRIPTIONS: COREG 25 MG, TAKE ONE TABLET BY MOUTH TWICE DAILY WITH MEALS DIGOXIN 0.125 MG, TAKE ONE TABLET BY MOUTH DAILY 6 (SIX) DAYS PER WEEK- SKIP SUNDAYS CARDIZEM 60 MG, TAKE ONE TABLET BY MOUTH THREE TIMES DAILY XANAX 0.5 MG, TAKE ONE TABLET BY MOUTH TWICE DAILY NEEDED FOR ANXIETY/ RESTLESSNESS KEFLEX 500 MG, TAKE ONE TABLET BY MOUTH TWICE DAILY FOR 5 (FIVE) DAYS SMOKING: NONSMOKER DISEASE SPECIFIC EDUCATION: HEART FAILURE RENAL DISEASE HYPERTENSION BRONCHITIS FOLLOW UP WITH YOUR RENAL SPECIALIST, DR. SEVILLA FOLLOW UP THROUGH THE OFFICE HOME MEDICATION CHANGES NEW PRESCRIPTIONS ACTIVITY LAB REVIEW: 04/03/16 06:15 04/03/16 06:15 04/03/16 06:15: WBC 9.31, RBC 4.42 L, Hgb 11.7 L, Hct 36.7 L, MCV 83.0, MCH 26.5 L, MCHC 31.9, RDW Coeff of Emerald 19.6 H, Plt Count 273, Immature Gran % (Auto ) 1.9, Neut % (Auto) 78.4, Lymph % (Auto) 10.8, [place] % (Auto) 7.9, Eos % (Auto) 0.8, Baso % (Auto) 0.2, Immature Gran # (Auto) 0.2, Neut # 7.3 H, Lymph # 1.0, [place] # 0.7, Eos # 0.1, Baso # 0.0, Sodium 138, Potassium 4.2, Chloride 105, Carbon Dioxide 27, Anion Gap 10.2, BUN 63 H*, Creatinine 2.96 H, Estimated GFR ( MDRD) 25.00, BUN/Creatinine Ratio 21.28, Glucose 155 H, Calcium 8.6, Total Bilirubin 0.26, AST 13 L, ALT 12, Alkaline Phosphatase 78, Total Protein 6.1, Albumin 2.6 L, Globulin 3.5, Albumin/Globulin Ratio 0.74, Digoxin 0.46 L PLAN: DISCHARGE HOME TODAY RETURN TO SEE DR. GUZMAN IN 5-7 DAYS. PLEASE CALL TO SCHEDULE YOUR APPOINTMENT ([phone]) KEEP YOUR APPOINTMENT WITH DR. SEVILLA FOR NONFASTING LABS ON 04/12/16 AT 9:20 A.M. AND YOUR APPOINTMENT WITH DR. SEVILLA ON 04-18-16 AT 11:20 A.M. RESUME YOUR HOME MEDICATIONS PER LIST PROVIDED BY THE NURSING STAFF NOTE THE DECREASE IN YOUR BUMEX TO 1 MG BY MOUTH EVERY OTHER DAY NOTE THE INCREASE IN YOUR HYDRALAZINE HCL (APRESOLINE) TO 100 MG BY MOUTH THREE TIMES DAILY DO NOT TAKE YOUR NEBIVOLOL HCL(BYSTOLIC) NEW PRESCRIPTIONS: COREG 25 MG, TAKE ONE TABLET BY MOUTH TWICE DAILY WITH MEALS DIGOXIN 0.125 MG, TAKE ONE TABLET BY MOUTH DAILY 6 (SIX) DAYS PER WEEK- SKIP SUNDAYS CARDIZEM 60 MG, TAKE ONE TABLET BY MOUTH THREE TIMES DAILY XANAX 0.5 MG, TAKE ONE TABLET BY MOUTH TWICE DAILY NEEDED FOR ANXIETY/ RESTLESSNESS KEFLEX 500 MG, TAKE ONE TABLET BY MOUTH TWICE DAILY FOR 5 (FIVE) DAYS ACTIVITY: GET PLENTY OF REST AT HOME. GRADUALLY INCREASE YOUR ACTIVITY LEVEL ACCORDING TO YOUR TOLERATION. KEEP YOUR FEET AND LEGS ELEVATED MUCH POSSIBLE DIET: DIABETIC/RENAL DISEASE DIET SUMMARY: THE PATIENT IS ALERT AND ORIENTED X3. HE CURRENTLY RESIDES AT HOME WITH HIS SPOUSE. SHE ASSISTS HIM WITH ADL'S NEEDED. HE IS ABLE TO BE AMBULATORY WITH USE OF A CANE AND SUPERVISION. AT HOME HE HAS A GLUCOMETER, BLOOD SUGAR TESTING SUPPLIES AND A CANE. HE DOES NOT HAVE HOME HEALTH OR HOMEMAKING SERVICES. HE DESIRES TO RETURN TO HIS HOME AT DISCHARGE. HE HAS NO DISCHARGE NEEDS. MR. HERNANDEZ IS AWARE AND AGREEABLE FOR DISCHARGE TODAY. HIS SKIN TURGOR IS INTACT AND WITHOUT DECUBITUS ULCERS. HIS LOWER EXTREMITIES HAVE A LEATHERY ROUGH TEXTURE AND ARE WRINKLED FROM EDEMA RESOLUTION. ALIYA GUZMAN M.D.
[2016-04-03 15:06] VITALS: BP 146/77; TEMP 97.5
[2016-04-05] MEDS ORDERED: BUMEX PO SCH (06:30)
--- NOTE | 2016-04-07 09:54 | DS ---
DATE OF SERVICE: 04/03/16 FINAL DIAGNOSIS: 1. Acute on chronic heart failure 2. Diastolic heart failure 3. Pulmonary hypertension 4. Atrial fibrillation new onset 5. Chronic renal disease, follow by Dr. Leahy 6. Hypertension, labile 7. Coronary artery disease 8. History of GI 9. Left femoral DVT on Eliquis 10. COPD 11. Pulmonary embolism 12. Chronic lower extremity edema 13. Diabetes Mellitus, type 2 14. History of bypass surgery 15. Cardiac stent, 2001 and 2007 VITALS AT DISCHARGE: Blood pressure 167/88, respiratory rate 20, heart rate 64, temperature 97.5 and saturation 95%. DISCHARGE INSTRUCTIONS: Discharge the patient home today. Resume home medication. Return in 5-[address] Dai MEDICATIONS AT DISCHARGE: Tylenol Eliquis 2.5mg twice a day Bumex Coreg Zetia Apresoline 100mg three times a day Tradjenta Nasonex Nitrostat Protonix Micro-K Allergies: Penicillins NEW PRESCRIPTIONS: Coreg 25mg twice a day Digoxin 0.125mg skip one day a week Cardizem 60mg three times a day Xanax 0.5mg twice day Keflex 500mg twice a day for 5 more days. DIET INSTRUCTIONS: Diabetic/Renal disease diet. ACTIVITY: Get plenty of rest at home. Gradually increase your activity level according to toleration. Keep feet and legs elevated as much as possible. SMOKING: Nonsmoker DISEASE SPECIFIC EDUCATION: Heart failure Renal failure Medication compliance Keeping the legs elevated No salt diet shelter anti-coagulation and GI bleed been discussed. LABS: BUN and Creatinine is elevated which was 63 and 2.96. HOSPITAL COURSE: Yuri Orozco who is a 71 year old male with multiple medical problem and chronic diastolic heart failure came to the office with shortness of breath, coughing, congestion and weight gain. He was found to be in acute on chronic heart failure at that time he was admitted into the hospital. BNP was 2,000 and Lasix was given. ABG done showed the pH 7.497, pCO2 32.1, pO2 67 and BUN 36 and creatinine 2.65. Urine 3+ protein. Serology was negative. Asked Dr. Aragon to do the echocardiogram in review of congestive heart failure, diabetes and atrial fibrillation which showed the moderate left ventricular hypertrophy with the markedly enlarged left atrial cavity, ejection fraction was 66%. Leg edema was lot improved and the patient's shortness of breath and breathing trouble was improved with given Lasix. BUN and creatinine got worse but was being good and did not have any complication and did not have any renal failure signs on the patient. At that time the labs and the vitals were discussed and the patient wanted to go home. Explained to cut down on the Bumex medication and keep the follow up with Dr. Leahy. The patient did have a similar episode of the worsening in kidney function in the past and it got clear by itself over the time period and it was discussed with the patient in detail and verbalized understand and the patient went home. TIME SPENT: More than 45 minutes today. ABENA
--- NOTE | 2016-05-24 14:26 | PN ---
DATE OF SERVICE: 03/30/16 SUBJECTIVE: The patient is admitted from the office with shortness of breath and bronchitis. He was admitted with URI and diabetes mellitus and shortness of breath. On Admission white count was 13,000. ABG showed a pH 7.497, PCO2 32.1, PO2 67. REVIEW OF SYSTEMS: CONSTITUTIONAL: No fever, no chills. HEENT: Normal. ENDOCRINE: No weight gain, no weight loss. CVS: No angina symptoms. No CHF symptoms. No palpitations. No atypical chest pain for CAD. Shortness of breath. No PND, no orthopnea. RESPIRATORY: Cough, no hemoptysis. GI: No nausea, no vomiting. No abdominal pain. : No hematuria. No polyuria. MUSCULOSKELETAL:. No joint swelling. PSYCHIATRIC: Not anxious. No depression. No suicidal thoughts. No homicidal thoughts. SKIN: Intact. No rash. PHYSICAL EXAMINATION: V/S: Blood pressure 170/98, respiratory rate 20, heart rate 79, temperature 97.2 , saturation 90 on 2 liters. HEENT: Normocephalic, atraumatic. Mucosa dry. Pallor positive. NECK: Supple. No JVD, no carotid bruit. No lymphadenopathy. LUNGS: Decreased with basilar crackles. No rales or rhonchi. HEART: S1, S2 normal. No S3. No murmur, gallop or regurgitation. ABDOMEN: Soft, nontender. Bowel sounds active. No rigidity. No rebound or guarding. No CVA tenderness. EXTREMITIES: No clubbing, cyanosis. 2+ edema. MUSCULOSKELETAL: No joint swelling. NEUROLOGIC: Awake, alert, oriented times three. No focal deficit. LYMPHATIC: No lymph nodes palpable. SKIN: Intact. LABS: White count 9.12, hemoglobin 12.3, hematocrit 39.0, platelet count 260, sodium 139, potassium 4.5, chloride 104, bicarb 21, BUN 36, creatinine 2.65. ASSESSMENT: 1. CHRONIC OBSTRUCTIVE PULMONARY DISEASE EXACERBATION SECONDARY TO BRONCHITIS 2. DIABETES 3. HYPERTENSION 4. DYSLIPIDEMIA 5. CORONARY ARTERY DISEASE 6. CONGESTIVE HEART FAILURE 7. DEPENDENT EDEMA 8. CHRONIC KIDNEY DISEASE PLAN: 1. Keep the legs elevated. 2. Rocephin 3. DuoNeb 4. Daily I & O's. TIME SPENT: More than 30 minutes MTDD
== END 2016-04-03 15:06 | disposition home or self-care (01) | DRG 292 ==
LOC: MEDSURG B 11:52
PROVIDERS: ADMIT Emergency Medicine; ATTEND Emergency Medicine
DX: I50.33 Acute on chronic diastolic (congestive) heart failure (principal); N17.9 Acute kidney failure, unspecified; N18.4 Chronic kidney disease, stage 4 (severe); I82.412 Acute embolism and thrombosis of left femoral vein; I51.7 Cardiomegaly; I12.9 Hypertensive chronic kidney disease with stage 1 through stage 4 chronic kidney disease, or unspecified chronic kidney disease; R60.0 Localized edema; I10 Essential (primary) hypertension; E78.5 Hyperlipidemia, unspecified; E11.9 Type 2 diabetes mellitus without complications; J06.9 Acute upper respiratory infection, unspecified; I48.91 Unspecified atrial fibrillation; J44.9 Chronic obstructive pulmonary disease, unspecified; I27.2 Other secondary pulmonary hypertension; F41.9 Anxiety disorder, unspecified; Z86.711 Personal history of pulmonary embolism; Z87.39 Personal history of other diseases of the musculoskeletal system and connective tissue; Z79.01 Long term (current) use of anticoagulants; Z79.899 Other long term (current) drug therapy
CPT/HCPCS: 36415; 80053; 80162; 81001; 82550; 82553; 82803; 82962; 83874; 83880; 84484; 85025; 87804; 93005; 93010; 94640

== ENCOUNTER 2016-04-10 12:28 | Outpatient (CLI) ==
[2016-04-10 13:02] LABS: BILIRUBIN,URINE Negative (NEGATIVE); KETONES,URINE Negative (NEGATIVE); LEUKOCYTE ESTERASE ,URINE Negative (NEGATIVE); NITRITE,URINE Negative (NEGATIVE); PH,URINE 6.5 (5-9); PROTEIN,URINE 3+ (NEGATIVE); URINE, BLOOD Negative (NEGATIVE)
[2016-04-10 13:07] LABS: ADD URINE MICROSCOPIC YES
[2016-04-10 13:20] LABS: ALBUMIN 2.6 g/dL (3.4-5.0); ALBUMIN/GLOBULIN RATIO 0.68; BILIRUBIN,TOTAL 0.75 mg/dL (0.00-1.20); BUN/CREATININE RATIO 11.42; CALCIUM 9.3 mg/dL (8.2-10.2); CREATININE 2.45 mg/dL (0.60-1.10); TOTAL PROTEIN 6.4 g/dL (5.8-8.1)
== END 2016-04-10 12:29 | disposition home or self-care (01) ==
LOC: LAB 12:28
PROVIDERS: ATTEND Emergency Medicine
DX: N18.9 Chronic kidney disease, unspecified (principal); R35.0 Frequency of micturition
CPT/HCPCS: 36415; 80053; 81001

== ENCOUNTER 2016-05-03 07:57 | Outpatient (CLI) ==
[2016-05-03 08:28] LABS: BASOPHILS % (AUTO) 0.4 % (0.0-3.0); EOSINOPHILS % (AUTO) 0.2 % (0.0-7.0); HEMATOCRIT 37.3 % (42.0-52.0); HEMOGLOBIN 11.7 g/dl (14.0-18.0); IMMATURE GRANULOCYTE % (AUTO) 1.3 % (0.0-5.0); LYMPHOCYTES % (AUTO) 8.8 (10.0-50.0); MEAN CORPUSCULAR HEMOGLOBIN 26.5 pg (27.0-31.0); MEAN CORPUSCULAR HGB CONC 31.4 (31.8-35.4); MEAN CORPUSCULAR VOLUME 84.6 fl (80.0-94.0); MONOCYTES # (AUTO) 0.7 K/uL (0.4-2.0); MONOCYTES % (AUTO) 6.6 (0-10); NEUTROPHILS # (AUTO) 9.1 K/ul (2.0-6.9); NEUTROPHILS % (AUTO) 82.7; PLATELET COUNT 283 10^3/uL (140-440); RED BLOOD COUNT 4.41 10^6/ul (4.70-6.10); WHITE BLOOD COUNT 10.99 K/ul (4.2-10.2)
[2016-05-03 08:51] LABS: ALBUMIN 2.9 g/dL (3.4-5.0); ALBUMIN/GLOBULIN RATIO 0.67; ANION GAP 15.8; BILIRUBIN,TOTAL 0.37 mg/dL (0.00-1.20); BUN/CREATININE RATIO 9.35; CALCIUM 9.1 mg/dL (8.2-10.2); POTASSIUM 3.8 mmol/L (3.5-5.1); TOTAL PROTEIN 7.2 g/dL (5.8-8.1)
[2016-05-03 09:02] LABS: CREATININE 3.74 mg/dL (0.60-1.10)
--- NOTE | 2016-05-03 09:29 | US ---
EXAM: Right upper quadrant abdominal ultrasound. History: Nausea and weight loss. Comparison: CT abdomen pelvis 02/08/2016 Technique: Multiple sonographic images through the abdomen were obtained. Color duplex Doppler was used to interrogate vascular flow. Findings: The liver is not enlarged. There is antegrade flow within the main portal vein. No abdominal ascit es. The visualized pancreas demonstrates no gross abnormality. No evidence for a fatty liver. Araujo ited visualization of the right kidney demonstrates no evidence for hydronephrosis. A few small rig ht renal cysts measuring up to 1.7 cm. 2.2 cm minimally complicated hepatic cyst. No shadowing gallstones. Gallbladder wall is not thickened. Common bile duct measures 0.4 cm in ca liber. Impression: 1. No acute sonographic findings. 2. Small simple right renal cysts. 3. Minimally complicated hepatic cyst.
== END 2016-05-03 07:58 | disposition home or self-care (01) ==
LOC: RAD 07:57
PROVIDERS: ATTEND Emergency Medicine
DX: R11.0 Nausea (principal); R63.4 Abnormal weight loss
CPT/HCPCS: 36415; 80053; 85025

== ENCOUNTER 2016-10-10 11:19 | Inpatient (IN) ==
[2016-10-10] MEDS ORDERED: VISTARIL INJ IM PRN (11:38)
[2016-10-10] MEDS ORDERED: NITROSTAT SL PRN ×2 (11:38→14:30)
[2016-10-10] MEDS ORDERED: ATROPINE SULFATE PFS IVP PRN (11:38)
[2016-10-10] MEDS ORDERED: MORPHINE 4 MG/ML SYRINGE IVP PRN (11:38)
[2016-10-10] MEDS ORDERED: TYLENOL PO PRN ×2 (11:38→14:08)
[2016-10-10] MEDS ORDERED: DECADRON 4 MG/ML SDV IM STA (11:53)
[2016-10-10] MEDS ORDERED: LASIX IVP SCH (12:00)
[2016-10-10 12:08] LABS: ABG BASE EXCESS 5 (-2.0-2.0); ABG HCO3 29 (22.0-26.0); ABG PH 7.48 (7.35-7.45); ABG TCO2 30 (22.0-28.0)
[2016-10-10 12:20] LABS: BASOPHILS # (AUTO) 0.1 K/uL (0-0.2); BASOPHILS % (AUTO) 0.6 % (0.0-3.0); EOSINOPHILS # (AUTO) 0.2 K/ul (0.0-0.7); HEMATOCRIT 31.8 % (42.0-52.0); HEMOGLOBIN 10.2 g/dl (14.0-18.0); IMMATURE GRANULOCYTE % (AUTO) 0.4 % (0.0-5.0); LYMPHOCYTES # (AUTO) 0.8 K/uL (0.60-3.4); LYMPHOCYTES % (AUTO) 10.2 (10.0-50.0); MEAN CORPUSCULAR HEMOGLOBIN 26.6 pg (27.0-31.0); MEAN CORPUSCULAR HGB CONC 32.1 (31.8-35.4); MEAN CORPUSCULAR VOLUME 82.8 fl (80.0-94.0); MONOCYTES # (AUTO) 0.7 K/uL (0.4-2.0); MONOCYTES % (AUTO) 9.2 (0-10); NEUTROPHILS # (AUTO) 5.9 K/ul (2.0-6.9); NEUTROPHILS % (AUTO) 76.6; PLATELET COUNT 285 10^3/uL (140-440); RED BLOOD COUNT 3.84 10^6/ul (4.70-6.10); WHITE BLOOD COUNT 7.74 K/ul (4.2-10.2)
[2016-10-10 12:47] VITALS: BMI 38.0
[2016-10-10 13:01] LABS: ALBUMIN 2.9 g/dL (3.4-5.0); ALBUMIN/GLOBULIN RATIO 0.67; ANION GAP 14.2; BILIRUBIN,TOTAL 0.79 mg/dL (0.00-1.20); BUN/CREATININE RATIO 10.98; CALCIUM 9.8 mg/dL (8.2-10.2); CREATININE 2.73 mg/dL (0.60-1.10); POTASSIUM 3.2 mmol/L (3.5-5.1); TOTAL PROTEIN 7.2 g/dL (5.8-8.1); TROPONIN I 0.092 ng/ml (0.0000-0.4000); URIC ACID 10.5 mg/dL (2.6-7.2)
[2016-10-10 13:36] LABS: BILIRUBIN,URINE Negative (NEGATIVE); KETONES,URINE Negative (NEGATIVE); LEUKOCYTE ESTERASE ,URINE Negative (NEGATIVE); NITRITE,URINE Negative (NEGATIVE); PROTEIN,URINE 3+ (NEGATIVE); URINE, BLOOD Trace-intact (NEGATIVE)
[2016-10-10 13:44] LABS: ADD URINE MICROSCOPIC YES
[2016-10-10] MEDS ORDERED: PROAIR HFA IH PRN (14:08)
[2016-10-10] MEDS ORDERED: XANAX PO PRN (14:08)
--- NOTE | 2016-10-10 14:11 | DI ---
EXAM: Single view of the chest. History: Chest pain. Comparison: Chest radiograph 03/02/2016 Findings: Heart is enlarged. Sternotomy wires. Subtle patchy bilateral lung infiltrates and bronc hial wall thickening. No appreciable pleural fluid and no pneumothorax. No acute osseous abnormali ties. Impression: Cardiomegaly with subtle bilateral lung infiltrates could represent edema or pneumonia.
--- NOTE | 2016-10-10 14:26 | DI ---
EXAM: Three views of the left wrist. History: Left wrist pain and swelling. Findings: No acute fracture or dislocation. Mild to moderate polyarticular joint space narrowing. Atherosclerotic vascular calcifications. Subcutaneous edema seen involving the left wrist and left hand. Impression: 1. No acute osseous abnormality. 2. Polyarticular arthritis. 3. Atherosclerotic vascular disease. 4. Diffuse subcutaneous edema.
[2016-10-10] MEDS ORDERED: COLCRYS PO SCH (14:30)
[2016-10-10] MEDS ORDERED: DRISDOL PO SCH (14:30)
--- NOTE | 2016-10-10 14:48 | US ---
EXAM: Bilateral lower extremity venous doppler. HISTORY: Bilateral leg swelling. Left femoral vein thrombus. COMPARISON: 07/28/2015. TECHNIQUE: Multiple grayscale and color doppler images were obtained. FINDINGS: There is normal flow, compressibility and augmentation of flow within the right common fe moral, greater saphenous, profunda, femoral, popliteal, posterior tibial, anterior tibial and perone al veins. Peripheral echogenicity with partial compressibility and color flow noted in the left superficial fe moral vein, similar to the prior study. There is color flow, compressibility within the left common femoral, greater saphenous, profunda, popliteal, peroneal, posterior tibial and anterior tibial vei ns. Subcutaneous edema is noted in both calves. IMPRESSION: 1. 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 2. No evidence for right lower extremity deep vein thrombosis at the levels examined.
--- NOTE | 2016-10-10 14:54 | US ---
EXAM: Complete abdominal ultrasound. History: Weight loss, decreased appetite Comparison: CT abdomen pelvis 04/10/2015, abdominal ultrasound 05/03/2016 Technique: Multiple sonographic images through the abdomen were obtained. Color duplex Doppler was used to interrogate vascular flow. Findings: The liver is enlarged measuring 19 cm in length. 1.8 cm simple appearing hepatic cyst. The pancrea s is not well visualized due to obscuration by bowel gas. The abdominal aorta and IVC are not well visualized due to obscuration by bowel gas. No abdominal ascites. The periportal echoes within the liver are maintained. There is antegrade flow within the main portal vein. No shadowing gallstones. Gallbladder wall is not thickened. Common bile duct measures 0.4 cm in ca liber. Spleen is not enlarged. No focal splenic lesions. The right kidney measures 11 cm in long length demonstrating increased cortical echogenicity with mu ltiple cysts and the largest measuring 1.7 cm. No shadowing calculi and no hydronephrosis. The left kidney measures 13 cm in long length demonstrating increased cortical echogenicity with mul tiple cysts and the largest measuring 3 cm. No shadowing calculi and no hydronephrosis. The visualized bladder demonstrates no gross abnormality. Impression: 1. No acute sonographic findings. 2. Increased cortical echogenicity of bilateral kidneys suggesting medical renal disease. 3. Simple appearing bilateral renal cysts. 4. Mild hepatomegaly and simple hepatic cyst.
[2016-10-10] MEDS ORDERED: COLCRYS PO PRN (15:32)
[2016-10-10] MEDS: APRESOLINE PO SCH ×2 (16:02→20:43)
[2016-10-10] MEDS ORDERED: LASIX IM SCH (16:15)
[2016-10-10] MEDS: BUMEX PO SCH (16:36)
[2016-10-10] MEDS: COREG PO SCH (16:36)
[2016-10-10] MEDS: PROTONIX PO SCH (16:36)
[2016-10-10] MEDS: CARDIZEM PO SCH ×2 (16:36→20:44)
[2016-10-10] MEDS ORDERED: COLCRYS PO STA (19:23)
[2016-10-10] MEDS ORDERED: VASOTEC IV IVP PRN (19:30)
[2016-10-10] MEDS: ELIQUIS PO SCH (20:42)
[2016-10-10 20:50] LABS: TROPONIN I 0.097 ng/ml (0.0000-0.4000)
[2016-10-10] MEDS ORDERED: NON-FORMULARY MEDICATION (Apixaban [Eliquis] 2.5 MG) PO SCH (21:00)
[2016-10-10] MEDS ORDERED: NON-FORMULARY MEDICATION (Pantoprazole Sodium [Protonix] 40 MG) PO SCH ×22 (21:00)
[2016-10-10] MEDS: DUONEB NEB SCH (22:20)
[2016-10-11] MEDS: DUONEB NEB SCH ×3 (05:06→21:38)
[2016-10-11 05:45] LABS: BASOPHILS % (AUTO) 0.2 % (0.0-3.0); HEMATOCRIT 30.8 % (42.0-52.0); IMMATURE GRANULOCYTE % (AUTO) 0.8 % (0.0-5.0); LYMPHOCYTES # (AUTO) 0.4 K/uL (0.60-3.4); LYMPHOCYTES % (AUTO) 6.8 (10.0-50.0); MEAN CORPUSCULAR HEMOGLOBIN 26.4 pg (27.0-31.0); MEAN CORPUSCULAR HGB CONC 32.5 (31.8-35.4); MEAN CORPUSCULAR VOLUME 81.3 fl (80.0-94.0); MONOCYTES # (AUTO) 0.1 K/uL (0.4-2.0); MONOCYTES % (AUTO) 2.4 (0-10); NEUTROPHILS # (AUTO) 4.8 K/ul (2.0-6.9); NEUTROPHILS % (AUTO) 89.8; PLATELET COUNT 243 10^3/uL (140-440); RED BLOOD COUNT 3.79 10^6/ul (4.70-6.10); WHITE BLOOD COUNT 5.32 K/ul (4.2-10.2)
[2016-10-11] MEDS: PROTONIX PO SCH ×2 (06:01→16:38)
[2016-10-11] MEDS: BUMEX PO SCH ×2 (06:01→16:38)
[2016-10-11 06:04] LABS: ALBUMIN 2.7 g/dL (3.4-5.0); ALBUMIN/GLOBULIN RATIO 0.64; ANION GAP 20.4; BILIRUBIN,TOTAL 0.77 mg/dL (0.00-1.20); BUN/CREATININE RATIO 11.19; CALCIUM 9.6 mg/dL (8.2-10.2); CREATININE 2.77 mg/dL (0.60-1.10); POTASSIUM 3.4 mmol/L (3.5-5.1); TOTAL PROTEIN 6.9 g/dL (5.8-8.1)
[2016-10-11] MEDS: LASIX IVP SCH (06:06)
[2016-10-11] MEDS: FLONASE NAS SCH (07:59)
[2016-10-11] MEDS ORDERED: MICRO-K CAP PO SCH ×3 (08:00→15:01)
[2016-10-11] MEDS: APRESOLINE PO SCH ×3 (08:00→20:16)
[2016-10-11] MEDS: ELIQUIS PO SCH ×2 (08:02→20:16)
[2016-10-11] MEDS: LANOXIN PO SCH (08:03)
[2016-10-11] MEDS: COREG PO SCH ×2 (08:05→16:38)
[2016-10-11] MEDS: ZETIA PO SCH (08:05)
[2016-10-11] MEDS: ASPIRIN EC PO SCH (08:06)
[2016-10-11] MEDS: CARDIZEM PO SCH ×4 (08:07→20:16)
[2016-10-11] MEDS: TRADJENTA PO SCH (08:07)
[2016-10-11] MEDS: CALCITRIOL 0.5 MCG PO SCH ×21 (08:21)
[2016-10-11] MEDS ORDERED: MYRBETRIQ PO SCH (09:00)
[2016-10-11] MEDS ORDERED: ZAROXOLYN PO SCH (09:00)
[2016-10-11] MEDS ORDERED: NON-FORMULARY MEDICATION (Mirabegron [Myrbetriq] 50 MG) PO SCH (09:00)
[2016-10-11] MEDS ORDERED: MOMETASONE FUROATE INH SCH (09:00)
--- NOTE | 2016-10-11 13:51 | PCM.PROG ---
Attending Provider: ATTENDING PROVIDER: Dr. JUAN J NATION DATE OF SERVICE: 10/11/16 SUBJECTIVE: This 71 year old BLACK/ M was hospitalized 10/10/16. The patient is hospitalized with leg edema, shortness of breath, left wrist swelling , poor appetite and weight loss. The patient's is in the room. The patient is feeling better and is acting better. No PND, no orthopnea. No fever, no chills. Left wrist swelling is much less. Ultrasound of the abdomen practically negative for ascites, tumor, pancreatitis, etc. Venous scan showed old thrombus. D. dimer is elevated but likely from kidney failure, no evidence of PE. No tachy arrhythmia. No shortness of breath. Bronchitis symptoms are better, most likely bronchitis. REVIEW OF SYSTEMS: CONSTITUTIONAL: No night sweats. No fatigue, malaise, lethargy. No fever or chills. HEENT: Eyes: No visual changes. No eye pain. No eye discharge. ENT: No runny nose. No epistaxis. No sinus pain. No odynophagia. No congestion. RESPIRATORY: No cough, no congestion. No hemoptysis. No shortness of breath. CARDIOVASCULAR: No angina symptoms. No CHF symptoms. No atypical chest pain for CAD. No palpitations. No orthopnea.. GASTROINTESTINAL: No abdominal pain. No nausea or vomiting. No diarrhea or constipation. No hematemesis. No hematochezia. GENITOURINARY: No urgency. No frequency. No dysuria. No hematuria. No obstructive symptoms. No discharge. No pain. No significant abnormal bleeding. MUSCULOSKELETAL: No musculoskeletal pain; no joint swelling. NEUROLOGICAL: Awake, alert, oriented to time, place and person. No headache. No neck pain. No syncope. No seizures. No dizziness. PSYCHIATRIC: Not anxious. No depression. No suicidal thoughts. No homicidal thoughts. SKIN: No rash. No lesions. No wounds. ENDOCRINE: No unexplained weight loss. No weight gain. HEMATOLOGIC/LYMPHATIC: No anemia. No purpura. No petechiae. No prolonged or excessive bleeding. No palpable lymph nodes. PHYSICAL EXAMINATION: GENERAL: The patient is awake, alert and oriented, lying in bed in no distress. VITAL SIGNS: Temperature 97.0 F, Pulse 66, Respiratory Rate 14, BP 156/80, Pulse Ox 100% HEENT: Head normocephalic, atraumatic. Eyes: Extraocular muscles are intact. Pupils are equal, round and reactive to light and accommodation. Ears: No lesions. Nose appeared normal. Throat: No exudate or erythema. NECK: Supple. No JVD, no carotid bruit. No lymphadenopathy or thyromegaly. LUNGS: Clear to auscultation. Percussion note normal. Chest symmetrical. HEART: S1, S2, no S3. No murmurs. No cyanosis or clubbing. No ascites. Pulses: Dorsalis pedis and posterior tibial pulses +1 to +2 both sides. ABDOMEN: Soft. Non-tender. Bowel sounds active. No CVA tenderness. No mass felt. EXTREMITIES: Edema is trace to +1 now from +3 to +4 pitting edema. Skin is pigmented from chronic edema but now wrinkling of the skin from not having edema showing up. Full range of motion of all extremities, equal. NEUROLOGIC: No focal deficit. Cranial nerves II through XII are grossly intact. No headache, no double vision or headache. SKIN: Not dry. Intact. Turgor-normal. LYMPHATIC: No palpable lymph nodes/no lymphedema. MUSCULOSKELETAL: Normal joints with no swelling. Muscle tone is normal. LAB REVIEW: 10/11/16 05:44 10/11/16 05:44 10/11/16 05:44: WBC 5.32, RBC 3.79 L, Hgb 10.0 L, Hct 30.8 L, MCV 81.3, MCH 26.4 L, MCHC 32.5, RDW Coeff of Emerald 17.5 H, Plt Count 243, Immature Gran % (Auto ) 0.8, Neut % (Auto) 89.8, Lymph % (Auto) 6.8 L, [place] % (Auto) 2.4, Eos % (Auto ) 0.0, Baso % (Auto) 0.2, Immature Gran # (Auto) 0.0, Neut # 4.8, Lymph # 0.4 L , [place] # 0.1 L, Eos # 0.0, Baso # 0.0, Sodium 143, Potassium 3.4 L, Chloride 102 , Carbon Dioxide 24 D, Anion Gap 20.4, BUN 31 H, Creatinine 2.77 H, Estimated GFR (MDRD) 27.00, BUN/Creatinine Ratio 11.19, Glucose 148 H, Calcium 9.6, Total Bilirubin 0.77, AST 15, ALT 9 L, Alkaline Phosphatase 101, Total Protein 6.9, Albumin 2.7 L, Globulin 4.2, Albumin/Globulin Ratio 0.64 10/10/16 20:15: Total Creatine Kinase 101, Myoglobin 138, Troponin I 0.0970 10/10/16 13:10: Urine Color Yellow, Urine Clarity Clear, Urine pH 7.0, Ur Specific [place] 1.020, Urine Protein 3+, Urine Glucose (UA) Negative, Urine Ketones Negative, Urine Blood Trace-intact, Urine Nitrite Negative, Urine Bilirubin Negative, Urine Urobilinogen 0.2, Ur Leukocyte Esterase Negative, Urine Microscopic RBC 2-5, Ur Squamous Epith Cells Not present, Ur Renal Epithelial Cell 0-2 10/10/16 12:00: WBC 7.74, RBC 3.84 L, Hgb 10.2 L, Hct 31.8 L, MCV 82.8, MCH 26.6 L, MCHC 32.1, RDW Coeff of Emerald 17.8 H, Plt Count 285, Immature Gran % (Auto ) 0.4, Neut % (Auto) 76.6, Lymph % (Auto) 10.2, [place] % (Auto) 9.2, Eos % (Auto) 3.0, Baso % (Auto) 0.6, Immature Gran # (Auto) 0.0, Neut # 5.9, Lymph # 0.8, [place] # 0.7, Eos # 0.2, Baso # 0.1, D-Dimer (Manual) 1284.95, Sodium 146 H, Potassium 3.2 L, Chloride 103, Carbon Dioxide 32 H, Anion Gap 14.2, BUN 30 H, Creatinine 2.73 H, Estimated GFR (MDRD) 28.00, BUN/Creatinine Ratio 10.98, Glucose 104, Hemoglobin A1c 6.3 H, Uric Acid 10.5 H, Calcium 9.8, Total Bilirubin 0.79, AST 15, ALT 8 L, Alkaline Phosphatase 109, Total Creatine Kinase 98, Myoglobin 129, Troponin I 0.0920, B-Natriuretic Peptide 877 H, Total Protein 7.2, Albumin 2.9 L, Globulin 4.3, Albumin/Globulin Ratio 0.67, Carcinoembryonic Ag 3.5, Vitamin B12 537, TSH 0.662, Free T4 1.25 H 10/10/16 11:52: Puncture Site R rad, O2 Saturation 96.0, ABG pH 7.48 H, ABG pCO2 39.0, ABG pO2 75.0 L, ABG HCO3 29 H, ABG Total CO2 30 H, ABG Base Excess 5 H, Wilfredo Test +, FiO2 % 21.0 ASSESSMENT: 1. Leg edema subsided 2. Left wrist acute gouty arthritis under control 3. Bronchitis likely allergic PLAN: 1. D. dimer has been elevated will not pursue this. 2. Colcryst one time. 3. PTH - send to Dr. Leahy 4. PT for ambulation and muscle strength Plan and coordination of the patient's care discussed in the presence of Instrument Calibrator and nurse. CONDITION: Improving. SCRIBED BY: ERICKA ANDERSON, Coordinator [employer] scribed while in presence of service performed by Dr. JUAN J NATION on 10/11/16 ([id number])
[2016-10-11] MEDS ORDERED: NON-FORMULARY MEDICATION (Potassium Chloride [K-Tab Er] 10 MEQ) PO SCH (14:08)
--- NOTE | 2016-10-11 14:56 | HP ---
DATE OF SERVICE: 10/10/16 REASON FOR HOSPITALIZATION/HISTORY OF PRESENT ILLNESS: This is a 71-year-old male who presented with coughing for one week. Appetite is good, taste is gone, stays nauseated. He has shortness of breath with exertion that is worsening. He states he hurts into his shoulder. Left hand is swollen and says leg edema is worsening with sores. He can't get into Wound Care until November 28. PAST MEDICAL HISTORY: 1. Heart disease 2. Hypertension 3. Arthritis 4. CHF 5. Dyslipidemia 6. History of GI bleed/DVT 7. CKD 8. CAD 9. CABG 1999 10. History of pulmonary embolism 11. History of leg ulcer 12. Sleep apnea - CPAP 13. Diabetes mellitus PAST SURGICAL HISTORY: 1. Stents 2. Open heart 3. Broken arm - surgery 1996 4. Femur shortened 1965 5. Colonoscopy 2007 REVIEW OF SYSTEMS: CONSTITUTIONAL: Fatigue. HEENT: No sinus drainage, no sore throat. RESPIRATORY: No cough, no congestion. CARDIOVASCULAR: Sharp jabbing chest pain at rest. No angina, CHF symptoms, palpitations or shortness of breath. Shortness of breath with exertion. GASTROINTESTINAL: Nausea. No melena or abdominal pain. No GERD. GENITOURINARY: No hematuria, no prostatism, no polyuria. ARMATURE BANDER: No blackout, no dizziness, no headache, no double vision. MUSCULOSKELETAL: Osteoarthritis pain. No joint swelling. Gait - cane. ENDOCRINE: Weight loss. SKIN: Not dry, no rash. PSYCHIATRIC: Not anxious, no depression, no suicidal thoughts, no homicidal thoughts. SOCIAL HISTORY: Marital Status: Lives with . Alcohol Usage: None . Tobacco Usage: None. MEDICATIONS: 1. Carvedilol 25 mg one tablet p.o. every 12 hours with food 2. Zofran one tablet p.o. every 8 hr p.r.n. 3. Protonix 40 mg one tablet p.o. two times per day 4. Bystolic 10 mg one p.o. two times per day 5. Tradjenta 5 mg one p.o. daily 6. K- Tab 10 mEq four days a week 7. Hydralazine 50 mg one p.o. three times per day with food 8. Bumetanide 1 mg p.o. two times per day 9. Eliquis 2.5 mg one tablet p.o. two times per day 10.Valsartan 320 mg one tablet p.o. once daily 11. Nasonex 50 mcg/actuation spray, non-aerosol two sprays in each nostril p.r.n. 12. Caduet 10-40 mg one tablet p.o. once daily 13. Vitamins 14. ProAir inhale two puffs every 6 hours 15. Nitroglycerin 0.4 mg one tablet buccal route first sign of an attack, no more than 3 tabs are recommended within a 15 min period. 16. Hydrocortisone 2.5% cream 17. Zetia 10 mg tablet one tablet p.o. once daily ALLERGIES: PENICILLIN PHYSICAL EXAMINATION: V/S: Pulse 77, B/P 174/88, 02 sat 95%, Height 5'8", weight 252 lbs, BMI 38.4. GENERAL APPEARANCE: Oriented times three. HEENT: Normal. NECK: No JVP, no bruits. RESPIRATORY: Decreased breath sounds. Lungs are clear. CARDIOVASCULAR: S1, S2, no S3, no murmurs. No cyanosis, clubbing. No ascites. GI/ABDOMEN: No tenderness. Bowel sounds are active. EXTREMITIES: Left hand is swollen and tender. +3 to +4 edema, chronic blistering. Pulses +1, equal. ARMATURE BANDER: Deep tendon reflexes, sensory, motor and gait all normal. RECTAL/PROSTATE: .Prostate 08/26 (1.7). Colonoscopy 2007 [facility]. RADIOLOGY: Chest x-ray showed cardiomegaly with subtle bilateral lung infiltrates could represent edema or pneumonia. X-ray of the left wrist showed polyarticular arthritis with diffuse subcutaneous edema. Venous scan showed stable chronic nonocclusive left superficial vein thrombosis. No evidence for right lower extremity deep vein thrombosis. Abdominal ultrasound shows no acute findings, increased echogenicity of bilateral kidneys suggesting renal disease, simple bilateral renal cyst, mild hepatomegaly and simple hepatic cyst. ASSESSMENT: 1. LEG EDEMA (+4 PITTING) 2. WEIGHT LOSS 3. ACUTE BRONCHITIS, ALLERGIC 4. LOSS OF TASTE SENSATION 5. CHEST PAIN, ATYPICAL 6. DIABETES MELLITUS TYPE 2 (6.3) 08/28 7. HYPERTENSION/LVH 8. DYSLIPIDEMIA 9. DEPENDENT EDEMA 10. CAD/CABG 11. CHF 12. SLEEP APNEA - CPAP 13. ATRIAL FIBRILLATION 14. HISTORY OF DVT PE 15. CHRONIC KIDNEY DISEASE STAGE 4, DR. SEVILLA PLAN: 1. Admit Regular 2. Routine telemetry orders 3. T4, TSH, A1C/B12 4. CEA level, uric acid level 5. Elevate legs 6. Lasix 40 mg IV now and a.m. 7. Venous Scan, both lower extremities 8. BNP, D. Dimer 9. ABG 10. 1 cc Decadron IM 11. Ultrasound of liver, abdomen, pancreas 12. Continue all home medications 13. X-ray left wrist TIME SPENT: More than 70 minutes. MTDD
[2016-10-12 04:44] LABS: BASOPHILS % (AUTO) 0.4 % (0.0-3.0); EOSINOPHILS # (AUTO) 0.1 K/ul (0.0-0.7); EOSINOPHILS % (AUTO) 0.8 % (0.0-7.0); HEMATOCRIT 33.7 % (42.0-52.0); IMMATURE GRANULOCYTE % (AUTO) 0.5 % (0.0-5.0); LYMPHOCYTES # (AUTO) 0.9 K/uL (0.60-3.4); MEAN CORPUSCULAR HEMOGLOBIN 26.1 pg (27.0-31.0); MEAN CORPUSCULAR HGB CONC 32.6 (31.8-35.4); MONOCYTES # (AUTO) 0.7 K/uL (0.4-2.0); MONOCYTES % (AUTO) 8.8 (0-10); NEUTROPHILS # (AUTO) 6.2 K/ul (2.0-6.9); NEUTROPHILS % (AUTO) 78.5; PLATELET COUNT 303 10^3/uL (140-440); RED BLOOD COUNT 4.21 10^6/ul (4.70-6.10); WHITE BLOOD COUNT 7.85 K/ul (4.2-10.2)
[2016-10-12 05:04] LABS: ALBUMIN 2.9 g/dL (3.4-5.0); ALBUMIN/GLOBULIN RATIO 0.64; ANION GAP 19.2; BILIRUBIN,TOTAL 0.58 mg/dL (0.00-1.20); BUN/CREATININE RATIO 11.07; CALCIUM 9.8 mg/dL (8.2-10.2); CREATININE 3.25 mg/dL (0.60-1.10); POTASSIUM 3.2 mmol/L (3.5-5.1); TOTAL PROTEIN 7.4 g/dL (5.8-8.1)
[2016-10-12] MEDS: DUONEB NEB SCH ×3 (05:05→22:45)
[2016-10-12] MEDS: BUMEX PO SCH ×2 (05:42→17:32)
[2016-10-12] MEDS: PROTONIX PO SCH ×2 (05:42→17:29)
[2016-10-12] MEDS: LASIX IVP SCH (05:42)
[2016-10-12] MEDS: ELIQUIS PO SCH ×2 (09:12→21:15)
[2016-10-12] MEDS: FLONASE NAS SCH (09:12)
[2016-10-12] MEDS: BACTROBAN TP SCH ×2 (09:12→21:15)
[2016-10-12] MEDS: K-DUR PO SCH ×3 (09:13→21:16)
[2016-10-12] MEDS: ZETIA PO SCH (09:13)
[2016-10-12] MEDS: TRADJENTA PO SCH (09:13)
[2016-10-12] MEDS: CALCITRIOL 0.5 MCG PO SCH ×21 (09:14)
[2016-10-12] MEDS: CARDIZEM PO SCH ×4 (09:14→21:16)
[2016-10-12] MEDS: LANOXIN PO SCH (09:14)
[2016-10-12] MEDS: ASPIRIN EC PO SCH (09:14)
[2016-10-12] MEDS: APRESOLINE PO SCH ×3 (09:14→21:16)
[2016-10-12] MEDS: COREG PO SCH ×2 (09:14→17:29)
--- NOTE | 2016-10-12 10:57 | PCM.PROG ---
Attending Provider: ATTENDING PROVIDER: Dr. JUAN J NATION DATE OF SERVICE: 10/12/16 SUBJECTIVE: This 71 year old BLACK/ M was hospitalized 10/10/16. The patient is seen with Mckenzie, Nurse Practitioner. The patient is sitting up in bed. He is eating better; has lost 8 lbs due to fluid. No nausea or vomiting. Appetite has improved. REVIEW OF SYSTEMS: CONSTITUTIONAL: Fatigue. No night sweats. No fever or chills. HEENT: Eyes: No visual changes. No eye pain. No eye discharge. ENT: No runny nose. No epistaxis. No sinus pain. No odynophagia. No congestion. RESPIRATORY: Cough, nonproductive. Congestion. No hemoptysis. No shortness of breath. CARDIOVASCULAR: No angina symptoms. No CHF symptoms. No atypical chest pain for CAD. No palpitations. No orthopnea.. GASTROINTESTINAL: Appetite is good. No abdominal pain. No nausea or vomiting. No diarrhea or constipation. No hematemesis. No hematochezia. GENITOURINARY: No urgency. No frequency. No dysuria. No hematuria. No obstructive symptoms. No discharge. No pain. No significant abnormal bleeding. MUSCULOSKELETAL: No musculoskeletal pain; no joint swelling. NEUROLOGICAL: Awake, alert, oriented to time, place and person. No headache. No neck pain. No syncope. No seizures. No dizziness. PSYCHIATRIC: Not anxious. No depression. No suicidal thoughts. No homicidal thoughts. SKIN: No rash. Open areas due to chronic edema of lower extremity. ENDOCRINE: No unexplained weight loss. No weight gain. HEMATOLOGIC/LYMPHATIC: No anemia. No purpura. No petechiae. No prolonged or excessive bleeding. No palpable lymph nodes. PHYSICAL EXAMINATION: GENERAL: The patient is awake, alert and oriented, sitting on side of bed in no distress. VITAL SIGNS: Temperature 97.3 F, Pulse 55, Respiratory Rate 17, BP 152/65, Pulse Ox 96% HEENT: Head normocephalic, atraumatic. Eyes: Extraocular muscles are intact. Pupils are equal, round and reactive to light and accommodation. Ears: No lesions. Nose appeared normal. Throat: No exudate or erythema. NECK: Supple. No JVD, no carotid bruit. No lymphadenopathy or thyromegaly. LUNGS: Diminished breath sounds bilaterally. Clear to auscultation. Percussion note normal. Chest symmetrical. HEART: S1, S2, no S3. No murmurs. No cyanosis or clubbing. No ascites. Pulses: Dorsalis pedis and posterior tibial pulses +1 to +2 both sides. ABDOMEN: Soft. Non-tender. Bowel sounds active. No CVA tenderness. No mass felt. EXTREMITIES: +1 edema bilateral lower extremities, significantly improved with wrinkling noted. Full range of motion of all extremities, equal. NEUROLOGIC: No focal deficit. Cranial nerves II through XII are grossly intact. No headache, no double vision or headache. SKIN: Not dry. Turgor-normal. Two 1 inch open areas due to chronic edema, superficial. LYMPHATIC: No palpable lymph nodes/no lymphedema. MUSCULOSKELETAL: Normal joints with no swelling. Muscle tone is normal. LAB REVIEW: 10/12/16 04:30 10/12/16 04:30 10/12/16 04:30: WBC 7.85, RBC 4.21 L, Hgb 11.0 L, Hct 33.7 L, MCV 80.0, MCH 26.1 L, MCHC 32.6, RDW Coeff of Emerald 17.6 H, Plt Count 303, Immature Gran % (Auto ) 0.5, Neut % (Auto) 78.5, Lymph % (Auto) 11.0, [place] % (Auto) 8.8, Eos % (Auto) 0.8, Baso % (Auto) 0.4, Immature Gran # (Auto) 0.0, Neut # 6.2, Lymph # 0.9, [place] # 0.7, Eos # 0.1, Baso # 0.0, Sodium 142, Potassium 3.2 L, Chloride 99, Carbon Dioxide 27, Anion Gap 19.2, BUN 36 H, Creatinine 3.25 H, Estimated GFR ( MDRD) 23.00, BUN/Creatinine Ratio 11.07, Glucose 149 H, Calcium 9.8, Total Bilirubin 0.58, AST 12 L, ALT 9 L, Alkaline Phosphatase 105, Total Protein 7.4, Albumin 2.9 L, Globulin 4.5, Albumin/Globulin Ratio 0.64 ASSESSMENT: 1. Leg edema subsided 2. Left wrist acute gouty arthritis under control 3. Bronchitis likely allergic PLAN: 1. Digoxin level 2. Potassium 20 mEq t.i.d. (only today) 3. D/C Zaroxolyn 4. Colcrys p.r.n. 5. Bactroban to superficial areas both lower extremities due to chronic edema Plan and coordination of the patient's care discussed in the presence of Water Resources Business Segment Leader and nurse. CONDITION: Stable SCRIBED BY: ERICKA ANDERSON Beveling And Edging Machine Operator scribed while in presence of service performed by Dr. JUAN J NATION/MCKENZIE AYERS APRN on 10/12/16 ([id number])
[2016-10-12 22:40] VITALS: TEMP 98.1
[2016-10-13 04:54] LABS: BASOPHILS # (AUTO) 0.1 K/uL (0-0.2); EOSINOPHILS # (AUTO) 0.3 K/ul (0.0-0.7); EOSINOPHILS % (AUTO) 3.8 % (0.0-7.0); HEMATOCRIT 33.4 % (42.0-52.0); HEMOGLOBIN 10.9 g/dl (14.0-18.0); IMMATURE GRANULOCYTE % (AUTO) 0.6 % (0.0-5.0); LYMPHOCYTES # (AUTO) 1.3 K/uL (0.60-3.4); LYMPHOCYTES % (AUTO) 16.5 (10.0-50.0); MEAN CORPUSCULAR HEMOGLOBIN 26.5 pg (27.0-31.0); MEAN CORPUSCULAR HGB CONC 32.6 (31.8-35.4); MEAN CORPUSCULAR VOLUME 81.3 fl (80.0-94.0); MONOCYTES # (AUTO) 0.7 K/uL (0.4-2.0); MONOCYTES % (AUTO) 8.7 (0-10); NEUTROPHILS # (AUTO) 5.5 K/ul (2.0-6.9); NEUTROPHILS % (AUTO) 69.4; PLATELET COUNT 298 10^3/uL (140-440); RED BLOOD COUNT 4.11 10^6/ul (4.70-6.10); WHITE BLOOD COUNT 7.93 K/ul (4.2-10.2)
[2016-10-13] MEDS: DUONEB NEB SCH (05:07)
[2016-10-13 05:19] LABS: ALBUMIN 2.8 g/dL (3.4-5.0); ALBUMIN/GLOBULIN RATIO 0.68; ANION GAP 17.5; BILIRUBIN,TOTAL 0.4 mg/dL (0.00-1.20); BUN/CREATININE RATIO 11.5; CALCIUM 9.6 mg/dL (8.2-10.2); CREATININE 3.39 mg/dL (0.60-1.10); POTASSIUM 3.5 mmol/L (3.5-5.1); TOTAL PROTEIN 6.9 g/dL (5.8-8.1)
[2016-10-13 05:43] VITALS: BP 158/68
[2016-10-13] MEDS: PROTONIX PO SCH (05:46)
[2016-10-13] MEDS: BUMEX PO SCH (05:46)
[2016-10-13] MEDS ORDERED: LASIX TAB PO SCH (06:30)
[2016-10-13] MEDS: BACTROBAN TP SCH (08:30)
[2016-10-13] MEDS: ELIQUIS PO SCH (08:30)
[2016-10-13] MEDS: FLONASE NAS SCH (08:30)
[2016-10-13] MEDS: ZETIA PO SCH (08:31)
[2016-10-13] MEDS: CARDIZEM PO SCH (08:31)
[2016-10-13] MEDS: ASPIRIN EC PO SCH (08:31)
[2016-10-13] MEDS: APRESOLINE PO SCH (08:32)
[2016-10-13] MEDS: COREG PO SCH (08:34)
[2016-10-13] MEDS: TRADJENTA PO SCH (08:34)
--- NOTE | 2016-10-13 09:25 | PCM.PROG ---
Attending Provider: ATTENDING PROVIDER: Dr. JUAN J ARAGON DATE OF SERVICE: 10/13/16 SUBJECTIVE: This 71 year old BLACK/ M was hospitalized 10/10/16. The patient is lying in bed, is alert, ready to go home. The is in the room. The patient has an appointment to see Dr. Leahy on 10/18/16. Leg edema is improving. REVIEW OF SYSTEMS: CONSTITUTIONAL: No night sweats. No fatigue, malaise, lethargy. No fever or chills. HEENT: Eyes: No visual changes. No eye pain. No eye discharge. ENT: No runny nose. No epistaxis. No sinus pain. No odynophagia. No congestion. RESPIRATORY: No cough, no congestion. No hemoptysis. No shortness of breath. CARDIOVASCULAR: No angina symptoms. No CHF symptoms. No atypical chest pain for CAD. No palpitations. No orthopnea.. GASTROINTESTINAL: No abdominal pain. No nausea or vomiting. No diarrhea or constipation. No hematemesis. No hematochezia. GENITOURINARY: No urgency. No frequency. No dysuria. No hematuria. No obstructive symptoms. No discharge. No pain. No significant abnormal bleeding. MUSCULOSKELETAL: No musculoskeletal pain; no joint swelling. NEUROLOGICAL: Awake, alert, oriented to time, place and person. No headache. No neck pain. No syncope. No seizures. No dizziness. PSYCHIATRIC: Not anxious. No depression. No suicidal thoughts. No homicidal thoughts. SKIN: No rash. No lesions. No wounds. ENDOCRINE: No unexplained weight loss. No weight gain. HEMATOLOGIC/LYMPHATIC: No anemia. No purpura. No petechiae. No prolonged or excessive bleeding. No palpable lymph nodes. PHYSICAL EXAMINATION: GENERAL: The patient is awake, alert and oriented, lying/sitting in bed in no distress. VITAL SIGNS: Temperature 98.1 F, Pulse 52, Respiratory Rate 19, BP 158/68, Pulse Ox 93% HEENT: Head normocephalic, atraumatic. Eyes: Extraocular muscles are intact. Pupils are equal, round and reactive to light and accommodation. Ears: No lesions. Nose appeared normal. Throat: No exudate or erythema. NECK: Supple. No JVD, no carotid bruit. No lymphadenopathy or thyromegaly. LUNGS: Diminished breath sounds. Clear to auscultation. Percussion note normal. Chest symmetrical. HEART: S1, S2, no S3. No murmurs. No cyanosis or clubbing. No ascites. Pulses: Dorsalis pedis and posterior tibial pulses +1 to +2 both sides. ABDOMEN: Soft. Non-tender. Bowel sounds active. No CVA tenderness. No mass felt. EXTREMITIES: Trace left lower extremity edema with wrinkling, no open sores. Full range of motion of all extremities, equal. NEUROLOGIC: No focal deficit. Cranial nerves II through XII are grossly intact. No headache, no double vision or headache. SKIN: Not dry. Intact. Turgor-normal. LYMPHATIC: No palpable lymph nodes/no lymphedema. MUSCULOSKELETAL: Normal joints with no swelling. Muscle tone is normal. LAB REVIEW: 10/13/16 04:30 10/13/16 04:30 10/13/16 04:30: WBC 7.93, RBC 4.11 L, Hgb 10.9 L, Hct 33.4 L, MCV 81.3, MCH 26.5 L, MCHC 32.6, RDW Coeff of Emerald 17.8 H, Plt Count 298, Immature Gran % (Auto ) 0.6, Neut % (Auto) 69.4, Lymph % (Auto) 16.5, [place] % (Auto) 8.7, Eos % (Auto) 3.8, Baso % (Auto) 1.0, Immature Gran # (Auto) 0.1, Neut # 5.5, Lymph # 1.3, [place] # 0.7, Eos # 0.3, Baso # 0.1, Sodium 142, Potassium 3.5, Chloride 100, Carbon Dioxide 28, Anion Gap 17.5, BUN 39 H, Creatinine 3.39 H, Estimated GFR ( MDRD) 22.00, BUN/Creatinine Ratio 11.50, Glucose 134 H, Calcium 9.6, Total Bilirubin 0.40, AST 12 L, ALT 9 L, Alkaline Phosphatase 100, Total Protein 6.9, Albumin 2.8 L, Globulin 4.1, Albumin/Globulin Ratio 0.68 10/12/16 04:20: Digoxin < 0.30 L 10/11/16 05:15: PTH Intact 84 H ASSESSMENT: 1. Leg edema, improving 2. Weight loss 3. Acute bronchitis 4. Gout, left hand 5. Hypertension 6. Chronic renal failure PLAN: 1. Keep appointment with Dr. Leahy on 10/18/[address] Aragon next Sunday with CBC and CMP before 3. Leg edema and CHF discussed in detail 4. Discharge home on Zaroxolyn 2.5 mg 3 to 4 days a week. Plan and coordination of the patient's care discussed in the presence of Rim Fire Priming Operator and nurse. CONDITION: Stable SCRIBED BY: ERICKA ANDERSON Hospital Receptionist scribed while in presence of service performed by Dr. JUAN J ARAGON/SIM AYERS APRN on 10/13/16 (08)
--- NOTE | 2016-10-13 13:14 | CM.DICTOOL ---
ADMISSION: 10/10/16 11:19 DISCHARGE: 10/13/16 09:15 DATE OF SERVICE: 10/13/16 FINAL DIAGNOSIS LEG EDEMA, ACUTE ON CHRONIC WITH DERMATITIS WEIGHT LOSS BRONCHITIS, LIKELY ALLERGY ETIOLOGY ATRIAL FIB/FLUTTER (LANOXIN, ELIQUIS) HYPERTENSION CHRONIC RENAL DISEASE (DR. SEVILLA) CAD CHF GI BLEED BY HISTORY LEFT FEMORAL DVT BY HISTORY (VENOUS SCAN 03/26/15) OBSTRUCTIVE SLEEP APNEA ([facility] SLEEP STUDY 09/28/15) PULMNARY EMBOLISM BY HISTORY DM, TYPE 2 OBESITY CABG, 1999 CARDIAC STENT, 2001 LAST VITALS Temp Pulse Resp BP Pulse Ox 98.1 F 52 L 19 158/68 H 93 L 10/13/16 05:42 10/13/16 05:42 10/13/16 05:42 10/13/16 05:42 10/13/16 05:42 ALLERGIES Penicillins Adverse Reaction (Verified 03/02/16 14:37) NEW PRESCRIPTIONS: PLEASE NOTE THE CHANGE IN YOUR ZAROXOLYN (METOLAZONE) TO 2.5 MG ON SUNDAY, SUN , SUN AND SUN NEW MEDICATIONS: BACTROBAN APPLY TOPICALLY TO CLEAN LEFT LOWER EXTREMITY OPEN AREAS TWICE DAILY REMAINING HOSPITAL SUPPLY WILL BE PROVIDED SMOKING: NONSMOKER DISEASE SPECIFIC EDUCATION: BRONCHITIS LEG EDEMA GOUTY ARTHRITIS HOME MEDICATIONS NEW PRESCRIPTIONS FOLLOW UP TEST RESULTS ACTIVITY LAB REVIEW: 10/13/16 04:30 10/13/16 04:30 10/13/16 04:30: WBC 7.93, RBC 4.11 L, Hgb 10.9 L, Hct 33.4 L, MCV 81.3, MCH 26.5 L, MCHC 32.6, RDW Coeff of Emerald 17.8 H, Plt Count 298, Immature Gran % (Auto ) 0.6, Neut % (Auto) 69.4, Lymph % (Auto) 16.5, [place] % (Auto) 8.7, Eos % (Auto) 3.8, Baso % (Auto) 1.0, Immature Gran # (Auto) 0.1, Neut # 5.5, Lymph # 1.3, [place] # 0.7, Eos # 0.3, Baso # 0.1, Sodium 142, Potassium 3.5, Chloride 100, Carbon Dioxide 28, Anion Gap 17.5, BUN 39 H, Creatinine 3.39 H, Estimated GFR ( MDRD) 22.00, BUN/Creatinine Ratio 11.50, Glucose 134 H, Calcium 9.6, Total Bilirubin 0.40, AST 12 L, ALT 9 L, Alkaline Phosphatase 100, Total Protein 6.9, Albumin 2.8 L, Globulin 4.1, Albumin/Globulin Ratio 0.68 10/11/16 05:15: PTH Intact 84 H PLAN: DISCHARGE HOME TODAY RETURN TO SEE DR. NATION ON 10/17/16. PLEASE PHONE THE OFFICE TO DETERMINE TIME. RETURN TO [facility] OUTPATIENT TO HAVE LABS ON 10/16/16 PHYSICAL THERAPY DEPARTMENT WILL PHONE YOU TO SCHEDULE YOUR OUTPATIENT TREATMENTS KEEP YOUR APPOINTMENT WITH DR. SEVILLA ON 10/18/16 RESUME YOUR HOME MEDICATIONS PER LIST PROVIDED BY THE NURSING STAFF PLEASE NOTE THE CHANGE IN YOUR ZAROXOLYN (METOLAZONE) TO 2.5 MG ON SUNDAY, SUN , SUN AND SAT NEW MEDICATIONS: BACTROBAN APPLY TOPICALLY TO CLEAN LEFT LOWER EXTREMITY OPEN AREAS TWICE DAILY REMAINING HOSPITAL SUPPLY WILL BE PROVIDED ACTIVITY: KEEP YOUR FEET AND LEGS ELEVATED FREQUENTLY POSSIBLE GET PLENTY OF REST AT HOME. GRADUALLY INCREASE YOUR ACTIVITY ACCORDING TO YOUR TOLERATION DIET: CONSISTENT CARBS LOW SODIUM SUMMARY: THE PATIENT IS ALERT AND ORIENTED X3. HE CURRENTLY RESIDES AT HOME WITH HIS SPOUSE. HE REQUIRES LITTLE ASSISTANCE FOR ADL'S. HE HAS AVAILABLE AT HOME FOR USE: CANE, WALKER, POWER CHAIR, BEDSIDE COMMODE, SHOWER CHAIR, GLUCOMETER AND TESTING SUPPLIES AND C-PAP. HE DOES NOT UTILIZE HOME HEALTH OR HOMEMAKING SERVICES. HE DESIRES TO RETURN HOME AT DISCHARGE. HIS SKIN TURGOR IS INTACT WITH THE EXCEPTION OF THE LOWER EXTREMITIES. THE SKIN TO THE LEGS ARE LEATHERY AND WRINKLED. THIS HAS BEEN A CHRONIC FINDING WITH THE PATIENT. HE HAS A SMALL 2 CM AREA TO THE LEFT LEG WHERE A FLUID FILLED BLISTER HAS OPENED. THE DRAINAGE GREW GRAM POSITIVE COCCI. WE ARE SENDING THE REMAINING HOSPITAL SUPPLY OF BACTROBAN HOME WITH THE PATIENT TO APPLY TO THIS AREA. THE EDEMA TO THE LOWER EXTREMITIES IS GREATLY IMPROVED. THE SWELLING TO THE LEFT WRIST IS ALSO IMPROVED. THE PATIENT SAYS THE PAIN IS ONLY VERY MILD NOW. HE AND HIS SPOUSE ARE AWARE AND AGREEABLE FOR DISCHARGE PLANS TODAY. CURRENT CODE STATUS: FULL CODE SIM AYERS APRN JUAN J NATION M.D.
--- NOTE | 2016-10-18 12:58 | PN ---
DATE OF SERVICE: 10/12/16 SUBJECTIVE: The patient is a 71 year old black male hospitalized with massive leg edema, acute bronchitis type of symptoms. The patient's condition has improved remarkably. His leg edema has practically resolved. The kidney functions from 2.6 to 3.2 from aggressive diuretic therapy with hypokalemia. We will discontinue Zaroxolyn. The patient will also be given K-Tab 20meq three times a day along with Digoxin level. PHYSICAL EXAMINATION: VITAL SIGNS: Blood pressure 152/65. HEENT: Head normocephalic, atraumatic. Eyes: Extraocular muscles are intact. Pupils are equal, round and reactive to light and accommodation. Ears: No lesions. Nose appeared normal. Throat: No exudate or erythema. NECK: Supple. No JVD, no carotid bruit. No lymphadenopathy or thyromegaly. LUNGS: Clear to auscultation. Percussion note normal. Chest symmetrical. HEART: S1, S2, no S3. No murmurs. No cyanosis or clubbing. No ascites. Pulses: Dorsalis pedis and posterior tibial pulses +1 to +2 both sides. ABDOMEN: Soft. Nontender. Bowel sounds active. No CVA tenderness. No mass felt. EXTREMITIES: No edema. Full range of motion of all extremities, equal. NEUROLOGIC: No focal deficit. Cranial nerves II through XII are grossly intact. No headache, no double vision or headache. SKIN: Not dry. Intact. Turgor - normal. LYMPHATIC: No palpable lymph nodes/no lymphedema. MUSCULOSKELETAL: Normal joints with no swelling. Muscle tone is normal. CONDITION: Stable. PLAN: 1. Will monitor kidney functions and potassium. 2. Education about leg edema carried out. The patient was seen and examined with Continuous Mining Machine Operator and Nurse Practitioner. TIME SPENT: More than 30 minutes. Plan and coordination of the patient's care discussed in the presence of nurse. ABENA
--- NOTE | 2016-10-19 11:16 | DS ---
DATE OF SERVICE: 10/13/16 FINAL DIAGNOSIS: 1. Leg edema, acute one chronic with dermatitis 2. Weight loss 3. Bronchitis, likely allergy etiology 4. Atrial fibrillation/flutter(Lanoxin, Eliquis) 5. Hypertension 6. Chronic renal failure 7. CAD CHF 8. GI bleed by history 9. Left femoral DVT by History(venous scan 03/26/15) 10.Obstructive sleep apnea ([facility] sleep study 09/28/15) 11.Pulmonary embolism by History 12.Diabetes Mellitus type 2 13.Obesity 14.CABG, 1999 15.Cardiac stent, 2001 LAST VITALS: Temperature 98.1, pulse 52, respiratory rate 19, blood pressure 158/68 and pulse ox 93%. DISCHARGE INSTRUCTIONS: Discharge home. Return to see. Dr. Aragon on Sunday10/17/16. Return to [facility] outpatient to have labs on 10/16/16. Physical therapy Department will phone to schedule outpatient treatments. Keep appointment with Dr. Leahy on 10/18/16. Resume home medications as per list provided by nursing staff, please note change in Zaroxolyn to 2.5mg on Sunday, Sun, Sunday and Sunday. MEDICATIONS AT DISCHARGE: Nasonex 17gram spray one spray INH daily ProAir HFA 200 puff 8.5 grams two puffs ING Q 6 hours PRN K-tab Er 10meq PO MOWEFRSA Coreg 25mg Po twice a day Bumex 1mg PO twice a day Calcitriol 0.5mcg Po daily Cardizem 60mg PO four times a day Colchicine 0.6mg PO PRN Eliquis 2.5mg Po twice a day Digoxin 125mcg PO daily Hydralazine 50mg Po three times a day Nitroglycerin 0.4 Sublingual PRN Protonix 40mg PO twice a day Tradjenta 5mg PO daily Tylenol extra strength 500mg PO four times a day PNR Xanax 0.5mg Po twice a day PRN Zetia 10mg PO daily Myrbetriq 50mg PO daily Metolazone 2.5mg PO MOEDFRSA Bactroban 1 application TP twice a day ALLERGIES: Penicillins NEW PRESCRIPTIONS: PLEASE NOTE THE CHANGE IN ZAROXOLYN TO 2.5MG ON SUNDAY, SUN, SUN AND SUN. Bactroban apply topically to clean left lower extremity open areas twice daily. Remaining hospital supply will be provided. DIET INSTRUCTIONS: Consistent Carbs Low Sodium ACTIVITY: Keep feet and legs elevated as frequently as possible. Get plenty of rest at home. Gradually increase activity according to toleration. SMOKING: Non-smoker DISEASE SPECIFIC EDUCATION: Bronchitis Leg edema Gouty Arthritis Home Medications New Prescription Followup Test results Activity HOSPITAL COURSE: Mr. Welch was hospitalized with leg edema and possibility of mild congestive heart failure. The patient had massive leg edema and his appetite was poor. He was hospitalized. His ultrasound of liver and pancreas and entire abdomen was acceptable with no new findings. The patient lost practically all the edema he had in his legs. The patient was discharged on Zaroxolyn to be taken three to four times a week as needed for leg edema. His kidney functions became a little bit more abnormal then what they were because of aggressive diuresis. The patient was up and about and he was advised to lose weight. CONDITION: Stable. TIME SPENT: More than 60 minutes. [facility]
--- NOTE | 2016-10-19 11:18 | PN ---
10/11/16: Level 5 10/12/16: Intermediate 10/13/16: D as in discharge, Extensive. The patient was seen with Nurse Practitioner, Mckenzie and Shop Service Technician. ABENA
--- NOTE | 2016-10-24 09:27 | DS ---
DATE OF SERVICE: 10/13/16 FINAL DIAGNOSIS: 1. LEG EDEMA, ACUTE ON CHRONIC WITH DERMATITIS 2. WEIGHT LOSS 3. BRONCHITIS, LIKELY ALLERGY ETIOLOGY 4. ATRIAL FIB/FLUTTER (LANOXIN, ELIQUIS) 5. HYPERTENSION 6. CHRONIC RENAL DISEASE (DR. SEVILLA) 7. CAD, CHF 8. GI BLEED BY HISTORY 9. LEFT FEMORAL DVT BY HISTORY (VENOUS SCAN 03/26/15) 10. OBSTRUCTIVE SLEEP APNEA ([facility] SLEEP STUDY 09/28/15) 11. PULMONARY EMBOLISM BY HISTORY 12. DIABETES MELLITUS TYPE 2 13. OBESITY 14. CABG 1999 15. CARDIAC STENT, 2001 DISCHARGE INSTRUCTIONS: Followup appointment: Return to see Dr. Aragon on 10/17/16. Please phone office to determine time. Return to [facility] outpatient to have labs on . Physical therapy will phone you to schedule your outpatient treatments. Keep your appointment with Dr. Sevilla on 10/18/16. MEDICATIONS AT DISCHARGE: 1. ProAir HFA two puff INH q.6h p.r.n. 2. K-Tab ER 10 mEq p.o. MoWeFrSa 3. Coreg 25 mg p.o. b.i.d. with meal 4. Bumex 1 mg p.o. b.i.d. 5. Calcitriol 0.5 mcg p.o. daily 6. Cardizem 60 mg p.o. q.i.d. 7. Colchicine 0.6 mg p.o. p.r.n. 8. Eliquis 2.5 mg p.o. b.i.d. 9. Digoxin 125 mcg p.o. daily 10. Hydralazine 50 mg p.o. t.i.d. 11. Tradjenta 5 mg p.o. daily 12. Acetaminophen (Tylenol Extra-Strength) 500 mg p.o. q.i.d. p.r.n. 13. Xanax 0.5 mg p.o. b.i.d. p.r.n. 14. Zetia 10 mg p.o. daily NEW PRESCRIPTIONS: 1. Please note the change in your Zaroxolyn (Metolazone) to 2.5 mg on Sunday , Sunday, Sunday and Sunday 2. Bactroban, apply topically to clean left lower extremity open areas twice daily. Remaining hospital supply will be provided. DIET INSTRUCTIONS: Consistent carbs, low sodium. ACTIVITY: Keep your feet and legs elevated as frequently as possible. Get plenty of rest at home. Gradually increase your activity according to your toleration. SMOKING: Nonsmoker DISEASE SPECIFIC EDUCATION: Bronchitis Leg edema Gouty arthritis Home medications New prescriptions Follow up Test results Activity HOSPITAL COURSE: This is a 71-year-old male who is directly admitted from our office with worsening leg edema, swelling of the left hand. He has lost approximately 14 lbs over the past three months. He states he is not able to eat and sometimes goes 2 to 3 days without eating. He also had a slight cough. He was afebrile. He was admitted, started on IV Lasix 40 mg daily. His Bumex 1 mg b.i.d. and Zaroxolyn 2.5 mg p.o. were both continued. He was given 1 cc of Decadron for the cough. Chest x-ray was negative and revealed no pneumonia. The cough was likely related to allergies and weather change. He was given Colcrys 0.6 mg as it was thought that the right wrist swelling was due to acute gout. His uric acid level was found to be elevated at 10. The swelling improved within 24 hours after receiving the Colcrys along with the Decadron. Over the course of the past few days he has lost approximately 8 lbs. His vital signs have remained stable. He is on Digoxin. Digoxin level was normal. He does have chronic renal failure for which he sees kidney specialist, Dr. Sevilla. His kidney function did worsen due to aggressive use of diuretics for his leg edema today. His creatinine was 3.39 and BUN 39. Normal creatinine for him is around 2.3 to 2.5. Sodium is 142, potassium 3.5, hemoglobin 10.9, hematocrit 33.4. His vital signs have remained stable. He has had a few episodes of increased blood pressure and has been given Vasotec once due to this. He was placed on routine telemetry orders and telemetry shows atrial flutter for which he is on daily Eliquis 2.5 mg b.i.d. With each day the leg edema had improved. Originally on day of admission he had two open areas on the anterior aspect of both lower extremities due to chronic edema. Today, on day of discharge, these have both dried up and improved. He has significant wrinkling of his lower extremities. His ankle bones are visible, his swelling has significantly improved. The wrist has no swelling and has significant improvement in pain. He has no take any pain medicine. He has lost approximately 8 lbs. His appetite has been better. He has been eating 50 to 100% of his meals and states he is feeling much better. He will be discharged today. We will follow up with him in the office next Sunday with a CBC and CMP before the appointment. He will be discharged home back on his previous medications with Bumex 1 mg b.i.d. and Zaroxolyn 3 to 4 times a week with potassium along with the Zaroxolyn. He is instructed on CHF and low salt diet as well as to elevate his legs. The patient demostrates a good understanding of this. He has to keep his appointment with Dr. Sveilla on October 18. We will follow him closely. TIME SPENT: More than 60 minutes. ABENA
== END 2016-10-13 09:15 | disposition home or self-care (01) | DRG 948 ==
LOC: MEDSURG B 11:19
PROVIDERS: ADMIT Internal Medicine; ATTEND Internal Medicine
DX: R60.0 Localized edema (principal); I82.812 Embolism and thrombosis of superficial veins of left lower extremity; L30.9 Dermatitis, unspecified; J45.909 Unspecified asthma, uncomplicated; M25.432 Effusion, left wrist; M10.9 Gout, unspecified; I48.91 Unspecified atrial fibrillation; I10 Essential (primary) hypertension; I12.9 Hypertensive chronic kidney disease with stage 1 through stage 4 chronic kidney disease, or unspecified chronic kidney disease; E11.22 Type 2 diabetes mellitus with diabetic chronic kidney disease; N18.9 Chronic kidney disease, unspecified; I50.9 Heart failure, unspecified; I25.10 Atherosclerotic heart disease of native coronary artery without angina pectoris; G47.30 Sleep apnea, unspecified; R63.4 Abnormal weight loss; E66.9 Obesity, unspecified; Z86.711 Personal history of pulmonary embolism; Z86.718 Personal history of other venous thrombosis and embolism; Z79.01 Long term (current) use of anticoagulants; Z79.899 Other long term (current) drug therapy; Z87.19 Personal history of other diseases of the digestive system; Z95.1 Presence of aortocoronary bypass graft; Z95.5 Presence of coronary angioplasty implant and graft
CPT/HCPCS: 36415; 80053; 80162; 81001; 82378; 82550; 82607; 82803; 82962; 83036; 83874; 83880; 83970; 84439; 84443; 84484; 84550; 85025; 85379; 87070; 87081; 93005; 93010; 94640; 99223; 99232; 99239

== ENCOUNTER 2017-01-11 09:13 | Inpatient (IN) ==
[2017-01-11 09:45] LABS: BASOPHILS % (AUTO) 0.7 % (0.0-3.0); EOSINOPHILS # (AUTO) 0.1 K/ul (0.0-0.7); EOSINOPHILS % (AUTO) 1.9 % (0.0-7.0); HEMATOCRIT 32.4 % (42.0-52.0); HEMOGLOBIN 10.6 g/dl (14.0-18.0); IMMATURE GRANULOCYTE % (AUTO) 0.4 % (0.0-5.0); LYMPHOCYTES # (AUTO) 0.5 K/uL (0.60-3.4); LYMPHOCYTES % (AUTO) 9.1 (10.0-50.0); MEAN CORPUSCULAR HEMOGLOBIN 27.7 pg (27.0-31.0); MEAN CORPUSCULAR HGB CONC 32.7 (31.8-35.4); MEAN CORPUSCULAR VOLUME 84.6 fl (80.0-94.0); MONOCYTES # (AUTO) 0.5 K/uL (0.4-2.0); MONOCYTES % (AUTO) 8.8 (0-10); NEUTROPHILS # (AUTO) 4.5 K/ul (2.0-6.9); NEUTROPHILS % (AUTO) 79.1; PLATELET COUNT 217 10^3/uL (140-440); RED BLOOD COUNT 3.83 10^6/ul (4.70-6.10)
--- NOTE | 2017-01-11 09:59 | DI ---
EXAM: Three views of the right hand. History: Right hand pain. Findings: No acute fracture or dislocation. Moderate to severe narrowing of the first carpal metaca rpal joint. Mild to moderate polyarticular joint space narrowing seen elsewhere. Severe dorsal soft tissue swelling. No radiopaque foreign bodies. Impression: 1. No acute osseous abnormality. 2. 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 3. Severe dorsal soft tissue swelling
[2017-01-11 10:03] LABS: ALBUMIN 2.8 g/dL (3.4-5.0); ALBUMIN/GLOBULIN RATIO 0.58; ANION GAP 14.6; BILIRUBIN,TOTAL 0.66 mg/dL (0.00-1.20); BUN/CREATININE RATIO 10.62; CALCIUM 9.8 mg/dL (8.2-10.2); CREATININE 3.2 mg/dL (0.60-1.10); POTASSIUM 3.6 mmol/L (3.5-5.1); TOTAL PROTEIN 7.6 g/dL (5.8-8.1)
[2017-01-11 10:22] LABS: TROPONIN I 0.129 ng/ml (0.0000-0.4000)
--- NOTE | 2017-01-11 10:47 | ED.PDOC ---
General ED Provider: Dr. RONN WEI Chief Complaint: Non-specific Complaint Stated Complaint: right hand pain/edema Time Seen by Physician: 09:17 (see photos) Mode of Arrival: Walk-In Information Source: Patient Exam Limitations: No limitations Primary Care Provider: JUAN J NATION Nursing and Triage Documentation Reviewed and Agree: Yes Musculoskeletal Complaint Exam - Hand/Wrist Complaint/Exam Location of Pain: Reports: Right, Hand, Wrist Mechanism of Injury: Reports: No known trauma Onset/Duration: 2 days of pain and edema consistent with prior gouty attacks Symptoms Are: Still present Onset of Pain: Reports: Immediate Initial Severity: Moderate Current Severity: Moderate Location: Reports: Discrete (right dorsal hand ) Character: Reports: Dull, Aching, Throbbing, Spasmodic Alleviating: Reports: Rest Aggravating: Reports: Movement Associated Signs and Symptoms: Reports: Swelling. Denies: Redness, Bruising, Fever, Weakness, Numbness, Tingling Related History: Reports: Similar episode Dominant Hand: Right Related Surgical History: Reports: None Hand/Wrist Findings: Present: Swelling. Absent: Ecchymosis Compartment Syndrome Risk Factors: Present: Pain Differential Diagnoses: Gout, Closed Fracture, Bursitis, Tenosynovitis Review of Systems - Review Of Systems Constitutional: Reports: Malaise Eyes: Reports: No symptoms Ears, Nose, Mouth, Throat: Reports: No symptoms Respiratory: Reports: No symptoms Cardiac: Reports: No symptoms GI: Reports: No symptoms : Reports: No symptoms Musculoskeletal: Reports: Other (edema pain right hand ) Skin: Reports: No symptoms Neurological: Reports: No symptoms Endocrine: Reports: No symptoms Hematologic/Lymphatic: Reports: No symptoms All Other Systems: Reviewed and Negative Past Medical History - Past Medical History Previously Healthy: Yes Endocrine: Reports: DM 2, Dyslipidemia Cardiovascular: Reports: Hypertension, CHF, DVT Respiratory: Reports: PE, Other (pulmonary edema) Hematological: Reports: Unknown Gastrointestinal: Reports: Unknown Genitourinary: Reports: CKD, Unknown Neuro/Psych: Reports: Unknown Musculoskeletal: Reports: Unknown Cancer: Reports: Unknown - Surgical History General Surgical History: Reports: CABG, Orthopedic (LEFT ELBOW FRACTURE REPAIR LEFT FEMUR HAD TO BE SHORTENED.), Unknown - Family History Family History: Reports: Unknown - Social History Smoking Status: Former smoker Hx Substance Use: No Alcohol Screening: None Physical Exam - Physical Exam Appearance: Ill-appearing Eyes: KARINA, EOMI, Conjunctiva clear ENT: Ears normal, Nose normal, Oropharynx normal Respiratory: Airway patent, Breath sounds clear, Breath sounds equal, Respirations nonlabored Cardiovascular: RRR, Pulses normal, No rub, No murmur GI/: Soft, Nontender, No masses, Bowel sounds normal, No Organomegaly Musculoskeletal: Limited ROM (right hand with marked edema see photos) Skin: Warm, Dry, Normal color Neurological: Sensation intact, Motor intact, Reflexes intact, Cranial nerves intact, Alert, Oriented Psychiatric: Affect appropriate, Mood appropriate Interpretation - Radiology Interpretation Radiology Interpretation By: Radiologist Radiology Results: No acute changes Re-Evaluation - Re-Evaluation Time of Re-Evaluation: 10:47 Status: Unchanged Vital Signs Stable: Yes Pain Level: 5 Appearance: NAD Lungs: Clear Skin: Warm and Dry Neuro: Alert and Oriented X3 CV: RRR Physician Notification - Case Discussed Physician Notified: pmd Time of Notification: 10:47 Critical Care Note - Critical Care Note Total Time (mins): 0 Course - Course Hematology/Chemistry: 01/11/17 09:40 01/11/17 09:40 Orders, Labs, Meds: Lab Review 01/11/17 01/11/17 01/11/17 09:40 09:40 09:40 WBC 5.70 RBC 3.83 L Hgb 10.6 L Hct 32.4 L MCV 84.6 MCH 27.7 MCHC 32.7 RDW Coeff of Emerald 19.3 H Plt Count 217 Immature Gran % (Auto) 0.4 Neut % (Auto) 79.1 Lymph % (Auto) 9.1 L Pender % (Auto) 8.8 Eos % (Auto) 1.9 Baso % (Auto) 0.7 Immature Gran # (Auto) 0.0 Neut # 4.5 Lymph # 0.5 L Pender # 0.5 Eos # 0.1 Baso # 0.0 Sodium 143 Potassium 3.6 Chloride 110 H Carbon Dioxide 22 L Anion Gap 14.6 BUN 34 H Creatinine 3.20 H Estimated GFR (MDRD) 23.00 BUN/Creatinine Ratio 10.62 Glucose 135 H Uric Acid 10.7 H Calcium 9.8 Total Bilirubin 0.66 AST 14 L ALT 15 Alkaline Phosphatase 115 Total Creatine Kinase Troponin I Total Protein 7.6 Albumin 2.8 L Globulin 4.8 Albumin/Globulin Ratio 0.58 01/11/17 09:40 WBC RBC Hgb Hct MCV MCH MCHC RDW Coeff of Emerald Plt Count Immature Gran % (Auto) Neut % (Auto) Lymph % (Auto) Pender % (Auto) Eos % (Auto) Baso % (Auto) Immature Gran # (Auto) Neut # Lymph # Pender # Eos # Baso # Sodium Potassium Chloride Carbon Dioxide Anion Gap BUN Creatinine Estimated GFR (MDRD) BUN/Creatinine Ratio Glucose Uric Acid Calcium Total Bilirubin AST ALT Alkaline Phosphatase Total Creatine Kinase 62 Troponin I 0.1290 Total Protein Albumin Globulin Albumin/Globulin Ratio Orders Category Date Time Status EKG-(ED ONLY) Stat CARDIO 01/11/17 09:37 Ordered CBC W/ AUTO DIFF Stat LAB 01/11/17 09:33 Ordered COMPREHENSIVE METABOLIC PANEL Stat LAB 01/11/17 09:33 Ordered CREATINE KINASE Stat LAB 01/11/17 09:37 Stop Req TROPONIN I Stat LAB 01/11/17 09:37 Stop Req URIC ACID Stat LAB 01/11/17 09:30 Ordered HAND, RIGHT 3 VIEWS Stat RADS 01/11/17 09:30 Ordered Vital Signs: Temp Pulse Resp BP Pulse Ox 01/11/17 09:14 97.7 F 76 20 209/113 H 95 Departure - Departure Time of Disposition: 10:47 Disposition: ADMITTED INPATIENT Discharge Problem: Gout attack Qualifiers: Gout site: hand Gout etiology: unspecified cause Laterality: right Qualified Code(s): M10.9 - Gout, unspecified Instructions: Gout (ED) Condition: Good Pt referred to PMD for follow-up: Yes Additional Instructions: Please call your Family Physician as soon as possible to schedule a follow-up appointment. Allergies/Adverse Reactions: Allergies Penicillins Adverse Reaction (Verified 01/11/17 09:26) Home Medications: Ambulatory Orders Albuterol Sulfate [Proair Hfa] 2 puff INH Q6H PRN 12/17/13 Mometasone Furoate [Nasonex] 2 spray SHERRELL DAILY 12/17/13 Potassium Chloride [K-Tab ER] 10 meq PO MOWEFRSA 09/01/15 Carvedilol [Coreg] 25 mg PO BIDWM #60 tablet 04/03/16 Acetaminophen [Tylenol Extra Strength] 500 mg PO DAILY PRN 06/13/16 Alprazolam [Xanax] 0.5 mg PO BID PRN 06/13/16 Apixaban [Eliquis] 2.5 mg PO BID 06/13/16 Bumetanide [Bumex] 1 mg PO BID 06/13/16 Calcitriol 0.5 mcg PO DAILY 06/13/16 Colchicine 0.6 mg PO PRN 06/13/16 Digoxin 125 mcg PO DAILY 06/13/16 Diltiazem HCl [Cardizem] 60 mg PO QID 06/13/16 Ezetimibe [Zetia] 10 mg PO DAILY 06/13/16 Hydralazine HCl 50 mg PO TID 06/13/16 Linagliptin [Tradjenta] 5 mg PO DAILY 06/13/16 Metolazone 2.5 mg PO DAILY 06/13/16 Nitroglycerin 0.4 mg SL PRN 06/13/16 Pantoprazole Sodium [Protonix] 40 mg PO BID 06/13/16 Mirabegron [Myrbetriq] 50 mg PO DAILY 10/10/16 Mupirocin [Bactroban] 1 applic TP BID #1 applic 10/13/16 Ergocalciferol (Vitamin D2) [Vitamin D2] 50,000 unit PO MONTHLY 01/11/17 Metolazone 2.5 mg PO DAILY 01/11/17
[2017-01-11] MEDS ORDERED: PROAIR HFA IH PRN (10:50)
[2017-01-11] MEDS ORDERED: XANAX PO PRN (10:50)
[2017-01-11] MEDS ORDERED: NITROSTAT SL SCH (11:00)
[2017-01-11] MEDS: SODIUM CHLORIDE 1,000 ML IV SCH (12:18)
[2017-01-11 12:26] VITALS: BMI 38.9
[2017-01-11] MEDS: CARDIZEM PO SCH ×3 (13:10→21:10)
[2017-01-11] MEDS: TORADOL IVP SCH ×2 (14:21→21:10)
[2017-01-11] MEDS: APRESOLINE PO SCH ×2 (15:27→21:10)
[2017-01-11] MEDS ORDERED: LASIX IVP STA (16:31)
[2017-01-11] MEDS ORDERED: SOLU-CORTEF 250 MG IVP STA (16:31)
[2017-01-11] MEDS ORDERED: XOPENEX 1.25 MG NEB SCH (16:32)
[2017-01-11] MEDS ORDERED: XOPENEX 1.25 MG NEB STA (16:39)
[2017-01-11 17:21] LABS: ABG BASE EXCESS -1 (-2.0-2.0); ABG HCO3 22.4 (22.0-26.0); ABG PCO2 30.7 mmHg (35-45); ABG PH 7.472 (7.35-7.45); ABG TCO2 23 (22.0-28.0)
[2017-01-11] MEDS: PROTONIX PO SCH (17:32)
[2017-01-11] MEDS: COREG PO SCH (17:32)
[2017-01-11] MEDS: XOPENEX 1.25 MG NEB SCH (18:31)
[2017-01-11] MEDS ORDERED: NON-FORMULARY MEDICATION (Pantoprazole Sodium [Protonix] 40 MG) PO SCH ×22 (21:00)
[2017-01-11] MEDS ORDERED: NON-FORMULARY MEDICATION (Apixaban [Eliquis] 2.5 MG) PO SCH (21:00)
[2017-01-11] MEDS: COLCRYS PO SCH (21:10)
[2017-01-11] MEDS: BUMEX PO SCH (21:10)
[2017-01-11] MEDS: ELIQUIS PO SCH (21:11)
[2017-01-12] MEDS: XOPENEX 1.25 MG NEB SCH ×5 (00:35→23:16)
[2017-01-12 05:59] LABS: BASOPHILS % (AUTO) 0.3 % (0.0-3.0); HEMATOCRIT 30.9 % (42.0-52.0); IMMATURE GRANULOCYTE % (AUTO) 0.5 % (0.0-5.0); LYMPHOCYTES # (AUTO) 0.3 K/uL (0.60-3.4); LYMPHOCYTES % (AUTO) 4.8 (10.0-50.0); MEAN CORPUSCULAR HEMOGLOBIN 27.2 pg (27.0-31.0); MEAN CORPUSCULAR HGB CONC 32.4 (31.8-35.4); MONOCYTES # (AUTO) 0.2 K/uL (0.4-2.0); MONOCYTES % (AUTO) 2.7 (0-10); NEUTROPHILS # (AUTO) 5.3 K/ul (2.0-6.9); NEUTROPHILS % (AUTO) 91.7; PLATELET COUNT 223 10^3/uL (140-440); RED BLOOD COUNT 3.68 10^6/ul (4.70-6.10); WHITE BLOOD COUNT 5.82 K/ul (4.2-10.2)
[2017-01-12] MEDS: TORADOL IVP SCH ×3 (06:05→21:50)
[2017-01-12] MEDS: PROTONIX PO SCH ×2 (06:05→16:54)
[2017-01-12 06:18] LABS: ALBUMIN 2.8 g/dL (3.4-5.0); ALBUMIN/GLOBULIN RATIO 0.61; ANION GAP 15.4; BILIRUBIN,TOTAL 0.74 mg/dL (0.00-1.20); CALCIUM 9.5 mg/dL (8.2-10.2); CREATININE 3.18 mg/dL (0.60-1.10); POTASSIUM 3.4 mmol/L (3.5-5.1); TOTAL PROTEIN 7.4 g/dL (5.8-8.1)
[2017-01-12] MEDS ORDERED: LASIX IVP STA (08:11)
[2017-01-12] MEDS: ZETIA PO SCH (08:44)
[2017-01-12] MEDS: LANOXIN PO SCH (08:44)
[2017-01-12] MEDS: MICRO-K CAP PO SCH (08:44)
[2017-01-12] MEDS: ZAROXOLYN PO SCH (08:45)
[2017-01-12] MEDS: MYRBETRIQ PO SCH (08:46)
[2017-01-12] MEDS: COREG PO SCH ×2 (08:46→16:54)
[2017-01-12] MEDS: ELIQUIS PO SCH ×2 (08:46→21:49)
[2017-01-12] MEDS: COLCRYS PO SCH ×2 (08:46→21:49)
[2017-01-12] MEDS: BUMEX PO SCH ×2 (08:46→21:49)
[2017-01-12] MEDS ORDERED: ZAROXOLYN PO SCH (09:00)
[2017-01-12] MEDS ORDERED: NON-FORMULARY MEDICATION (Mirabegron [Myrbetriq] 50 MG) PO SCH (09:00)
[2017-01-12] MEDS ORDERED: SOLU-CORTEF 100 MG IVP SCH (09:00)
[2017-01-12] MEDS: CARDIZEM PO SCH ×2 (09:32→21:49)
[2017-01-12] MEDS: APRESOLINE PO SCH ×2 (09:36→21:49)
[2017-01-12] MEDS: SOLU-CORTEF 250 MG IVP SCH ×3 (09:36→21:50)
[2017-01-12] MEDS: SODIUM CHLORIDE 1,000 ML IV SCH (09:38)
--- NOTE | 2017-01-12 09:38 | PCM.PROG ---
Attending Provider: ATTENDING PROVIDER: Dr. JUAN J NATION This patient is seen with Mckenzie Flores, Nurse Practitioner. DATE OF SERVICE: 01/12/17 SUBJECTIVE: This 72 year old BLACK/ M was hospitalized 01/11/17. The patient is sitting on the side of the bed. He is alert. The right hand pain has improved. Shortness of breath has significantly improved. REVIEW OF SYSTEMS: CONSTITUTIONAL: No night sweats. No fatigue, malaise, lethargy. No fever or chills. HEENT: Eyes: No visual changes. No eye pain. No eye discharge. ENT: No runny nose. No epistaxis. No sinus pain. No odynophagia. No congestion. RESPIRATORY: No cough, no congestion. No hemoptysis. No shortness of breath. CARDIOVASCULAR: No angina symptoms. No CHF symptoms. No atypical chest pain for CAD. No palpitations. Improving orthopnea. GASTROINTESTINAL: No abdominal pain. No nausea or vomiting. No diarrhea or constipation. No hematemesis. No hematochezia. GENITOURINARY: No urgency. No frequency. No dysuria. No hematuria. No obstructive symptoms. No discharge. No pain. No significant abnormal bleeding. MUSCULOSKELETAL: Right hand pain and swelling. NEUROLOGICAL: Awake, alert, oriented to time, place and person. No headache. No neck pain. No syncope. No seizures. No dizziness. PSYCHIATRIC: Not anxious. No depression. No suicidal thoughts. No homicidal thoughts. SKIN: No rash. No lesions. No wounds. ENDOCRINE: No unexplained weight loss. No weight gain. HEMATOLOGIC/LYMPHATIC: No anemia. No purpura. No petechiae. No prolonged or excessive bleeding. No palpable lymph nodes. PHYSICAL EXAMINATION: GENERAL: The patient is awake, alert and oriented, sitting on side of bed in no distress. VITAL SIGNS: Temperature 98.8 F, Pulse 69, Respiratory Rate 20, BP 179/87, Pulse Ox 90% HEENT: Head normocephalic, atraumatic. Eyes: Extraocular muscles are intact. Pupils are equal, round and reactive to light and accommodation. Ears: No lesions. Nose appeared normal. Throat: No exudate or erythema. NECK: Supple. No JVD, no carotid bruit. No lymphadenopathy or thyromegaly. LUNGS: Diminished breath sounds equal and clear to auscultation. Percussion note normal. Chest symmetrical. HEART: S1, S2, no S3. No murmurs. No cyanosis or clubbing. No ascites. Pulses: Dorsalis pedis and posterior tibial pulses +1 to +2 both sides. ABDOMEN: Soft. Non-tender. Bowel sounds active. No CVA tenderness. No mass felt. EXTREMITIES: Right hand edematous, tender, no redness. Full range of motion of all extremities, equal. NEUROLOGIC: No focal deficit. Cranial nerves II through XII are grossly intact. No headache, no double vision or headache. SKIN: Not dry. Intact. Turgor-normal. LYMPHATIC: No palpable lymph nodes/no lymphedema. MUSCULOSKELETAL: Normal joints with no swelling. Muscle tone is normal. LAB REVIEW: 01/12/17 05:21 01/12/17 05:21 01/12/17 05:21: Sodium 141, Potassium 3.4 L, Chloride 108 H, Carbon Dioxide 21 L , Anion Gap 15.4, BUN 35 H, Creatinine 3.18 H, Estimated GFR (MDRD) 23.00, BUN/ Creatinine Ratio 11.00, Glucose 171 H, Calcium 9.5, Total Bilirubin 0.74, AST 13 L, ALT 14, Alkaline Phosphatase 110, Total Protein 7.4, Albumin 2.8 L, Globulin 4.6, Albumin/Globulin Ratio 0.61 01/12/17 05:21: WBC 5.82, RBC 3.68 L, Hgb 10.0 L, Hct 30.9 L, MCV 84.0, MCH 27.2 , MCHC 32.4, RDW Coeff of Emerald 19.4 H, Plt Count 223, Immature Gran % (Auto) 0.5 , Neut % (Auto) 91.7, Lymph % (Auto) 4.8 L, Pine % (Auto) 2.7, Eos % (Auto) 0.0 , Baso % (Auto) 0.3, Immature Gran # (Auto) 0.0, Neut # 5.3, Lymph # 0.3 L, Pine # 0.2 L, Eos # 0.0, Baso # 0.0 01/11/17 16:32: Puncture Site Lbrach, O2 Saturation 94.0 L, ABG pH 7.472 H, ABG pCO2 30.7 L, ABG pO2 66.0 L, ABG HCO3 22.4, ABG Total CO2 23, ABG Base Excess -1 , O2 Delivery Device Nc, Oxygen Liter Flow 2.00 ASSESSMENT: 1. ACUTE SHORTNESS OF BREATH IMPROVED 2. POSSIBLE CHF 3. RIGHT HAND GOUT 4. CHRONIC KIDNEY DISEASE STAGE 4 PLAN: 1. Chest x-ray 2. Lasix 20 mg IV one time dose 3. Colchicine one more day 4. Zaroxolyn Sun, Sun and Sunday 5. Continue Bumex 6. Solu-Cortef 125 q.8hr 7. D/C IV fluids 8. BNP Plan and coordination of the patient's care discussed in the presence of [employer] Logger and nurse. CONDITION: Stable SCRIBED BY: ERICKA ANDERSON Violin Teacher scribed while in presence of service performed by Dr. Nation/Mckenzie Flores APRN on 01/12/17 ([id number])
--- NOTE | 2017-01-12 10:47 | DI ---
EXAM: PA and lateral views of the chest HISTORY: Shortness of breath and orthopnea COMPARISON: Chest x-ray 10/10/2016 and multiple priors including CT chest 03/29/2016 FINDINGS: The cardiomediastinal silhouette is enlarged with intact sternotomy wires and surgical cli ps. There is no pneumothorax. There are bilateral small pleural effusions. There is mild pulmonary vascular indistinctness bilaterally. There is no consolidation, nodule or mass. The osseous struct ures demonstrate degenerative disease of the spine. IMPRESSION: Cardiomegaly with pulmonary vascular indistinctness consistent with edema and small pleu ral effusions. Findings are suggestive of congestive heart failure exacerbation.
[2017-01-12] MEDS ORDERED: NON-FORMULARY MEDICATION (Potassium Chloride [K-Tab Er] 10 MEQ) PO SCH (10:50)
--- NOTE | 2017-01-12 11:00 | HP ---
DATE OF SERVICE: 01/11/17 HISTORY OF PRESENT ILLNESS: 72-year-old -[place] male presented to the emergency room complaining of right hand pain and shortness of breath for the past 3 days, which is worsening and he has been unable to lay flat. He does have a history of CHF. He does have a history of gout as well as severe chronic kidney disease, Stage 4. PAST MEDICAL HISTORY: Diabetes mellitus Type 2 (A1C on 09/28/16 of 6.3) Hypertension LVH Dyslipidemia Dependent leg edema Coronary artery disease History of CHF Sleep apnea on CPAP History of atrial fib History of DVT/PE Chronic kidney disease, Stage 4 History of gout Obesity PAST SURGICAL HISTORY: Left elbow fracture with repair Left femur had to be shortened CABG REVIEW OF SYSTEMS: CONSTITUTIONAL: Positive for malaise, fatigue. No night sweats. No fever or chills. HEENT: Eyes: No visual changes. No blurred vision. No eye pain. No eye redness or drainage. ENT: Ears: The patient is hard of hearing. No epistaxis. No sinus pain. No nasal drainage. No sore throat. No odynophagia. No ear pain. No congestion. RESPIRATORY: No cough, no wheezing. No hemoptysis. Positive for shortness of breath. CARDIOVASCULAR: No angina symptoms. No CHF symptoms. No atypical chest pain for CAD. No palpitations. Positive for orthopnea. GASTROINTESTINAL: No abdominal pain. No nausea or vomiting. No diarrhea or constipation. No hematemesis. No hematochezia. GENITOURINARY: No urgency. No frequency. No dysuria. No hematuria. No obstructive symptoms. No discharge. No pain. No significant abnormal bleeding. MUSCULOSKELETAL: Positive for right hand pain and swelling otherwise unremarkable. NEUROLOGICAL: No confusion. No headache. No neck pain. No syncope. No seizures. No dizziness. PSYCHIATRIC: Not anxious. No depression. No suicidal thoughts. No homicidal thoughts. SKIN: Clean, dry and intact. ENDOCRINE: No unexplained weight loss. No weight gain. HEMATOLOGIC/LYMPHATIC: No anemia. No purpura. No petechiae. No prolonged or excessive bleeding. No palpable lymph nodes. PERSONAL/FAMILY/SOCIAL HISTORY: The patient is , currently lives at home with his . He is a former smoker but has quit for several years. He denies any alcohol or illicit drug use. No pertinent family history. MEDICATIONS: ProAir inhaler p.r.n. Nasonex two sprays to each nostril daily Potassium 10 mEq Sunday, Sunday, Sunday, Sunday Coreg 25 mg b.i.d. Tylenol p.r.n. Xanax 0.5 mg b.i.d. p.r.n. Eliquis 2.5 mg b.i.d. Bumex 1 mg b.i.d. Calcitrol 0.5 mcg daily Colchicine 0.6 mg p.r.n. Digoxin 125 mcg daily Cardizem 60 mg q.i.d. Zetia 10 mg daily Hydralazine 50 mg t.i.d. Tradgenta 5 mg daily Zaroxolyn 2.5 mg daily Nitro 0.4 p.r.n. Protonix 40 mg b.i.d. Myrbetriq 50 mg daily ALLERGIES: PENICILLIN PHYSICAL EXAMINATION: VITAL SIGNS: Temperature 97.7, heart rate 76, respirations 20, BP 209/113, pulse ox 95%. HEENT: Head normocephalic, atraumatic. The patient is ill-appearing. Eyes: Extraocular muscles are intact. Pupils are equal, round and reactive to light and accommodation. Ears: TMs within normal limits bilaterally. No lesions. Nose appeared normal. Throat: No exudate or erythema. NECK: Supple. No JVD, no carotid bruit. No lymphadenopathy or thyromegaly. LUNGS: Diminished breath sounds bilaterally with crepitations at the bases. Respirations are mildly labored. Percussion note normal. Chest symmetrical. HEART: Regular rate and rhythm. S1, S2, possible S3. No murmurs, clicks or rubs. No cyanosis or clubbing. No ascites. Pulses: Dorsalis pedis and posterior tibial pulses +1 to +2 both sides. ABDOMEN: Soft. Nontender. Bowel sounds active times four quadrants. No CVA tenderness. No hepatosplenomegaly. EXTREMITIES: Positive for leg edema. Full range of motion of all extremities, equal. NEUROLOGIC: Alert and oriented times three. No focal deficit. Cranial nerves II through XII are grossly intact. No headache, no double vision or headache. SKIN: [place], dry and intact. Turgor - normal. LYMPHATIC: No palpable lymph nodes/no lymphedema. MUSCULOSKELETAL: Limited range of motion. Extensive swelling to the right hand with edema. Tender to touch. Mild erythema consistent with gout. He also has chronic leg edema +1 to +2 pitting bilateral lower extremities. LAB VALUES: White count 5.7, hemoglobin 10.6, hematocrit 32.4, platelets 217. Sodium 143, potassium 3.6, chloride 110, BUN 34, creatinine 3.20, glucose 135, uric acid 10.7, calcium 9.8, total bili 0.66, AST 14, ALT 15, alkaline phosphatase 115. Total protein 7.6, total CK 62 with troponin 0.129. The patient had an x-ray of the right hand which showed soft tissue edema, chronic osteoarthritis and inflammation consistent with gout findings. ASSESSMENT: 1. SHORTNESS OF BREATH/ORTHOPNEA/POSSIBLE CONGESTIVE HEART FAILURE 2. GOUT, RIGHT HAND 3. CHRONIC KIDNEY DISEASE, STAGE 4 4. HYPERTENSION 5. ANEMIA 6. OBESITY 7. DIABETES MELLITUS TYPE 2 8. HISTORY OF DVT 9. HISTORY OF ATRIAL FIBRILLATION PLAN: 1. Admit to the floor 2. Routine telemetry orders 3. CBC, CMP daily 4. Lasix 40 mg IV daily 5. Daily weights 6. Chest x-ray 7. Start Solu-Cortef 125 mg IV q.8hr 8. Start Xopenex neb treatments, q.6hr 9. Toradol 30 mg IV q.8hr for pain 10. Will monitor closely TIME SPENT: More than 70 minutes. MTDD
[2017-01-12] MEDS: HUMULIN R SUBCUT PRN (17:36)
[2017-01-12] MEDS ORDERED: VASOTEC IV IVP STA (22:52)
[2017-01-12] MEDS ORDERED: NORVASC PO STA (22:53)
[2017-01-12] MEDS ORDERED: MOMETASONE FUROATE NAS SCH (23:00)
[2017-01-12] MEDS: FLONASE NAS PRN (23:31)
[2017-01-13] MEDS: XOPENEX 1.25 MG NEB SCH ×4 (05:27→23:58)
[2017-01-13] MEDS: PROTONIX PO SCH ×2 (06:11→18:35)
[2017-01-13] MEDS: TORADOL IVP SCH ×3 (06:11→20:42)
[2017-01-13] MEDS: SOLU-CORTEF 250 MG IVP SCH ×3 (06:12→20:42)
[2017-01-13 06:16] LABS: HEMATOCRIT 31.2 % (42.0-52.0); HEMOGLOBIN 10.2 g/dl (14.0-18.0); IMMATURE GRANULOCYTE % (AUTO) 0.8 % (0.0-5.0); LYMPHOCYTES # (AUTO) 0.3 K/uL (0.60-3.4); LYMPHOCYTES % (AUTO) 4.4 (10.0-50.0); MEAN CORPUSCULAR HEMOGLOBIN 27.6 pg (27.0-31.0); MEAN CORPUSCULAR HGB CONC 32.7 (31.8-35.4); MEAN CORPUSCULAR VOLUME 84.3 fl (80.0-94.0); MONOCYTES # (AUTO) 0.2 K/uL (0.4-2.0); MONOCYTES % (AUTO) 2.9 (0-10); NEUTROPHILS # (AUTO) 6.7 K/ul (2.0-6.9); NEUTROPHILS % (AUTO) 91.9; PLATELET COUNT 229 10^3/uL (140-440); WHITE BLOOD COUNT 7.31 K/ul (4.2-10.2)
[2017-01-13 06:45] LABS: ALBUMIN 2.9 g/dL (3.4-5.0); ALBUMIN/GLOBULIN RATIO 0.63; ANION GAP 16.2; BILIRUBIN,TOTAL 0.49 mg/dL (0.00-1.20); BUN/CREATININE RATIO 11.81; CALCIUM 9.6 mg/dL (8.2-10.2); CREATININE 3.47 mg/dL (0.60-1.10); POTASSIUM 3.2 mmol/L (3.5-5.1); TOTAL PROTEIN 7.5 g/dL (5.8-8.1)
[2017-01-13] MEDS: HUMULIN R SUBCUT PRN ×4 (07:52→20:43)
[2017-01-13] MEDS: COLCRYS PO SCH ×2 (10:02→20:50)
[2017-01-13] MEDS: BUMEX PO SCH ×2 (10:02→20:49)
[2017-01-13] MEDS: MICRO-K CAP PO SCH ×3 (10:03→20:50)
[2017-01-13] MEDS: COREG PO SCH ×2 (10:03→18:35)
[2017-01-13] MEDS: FLONASE NAS PRN ×2 (10:04→20:56)
[2017-01-13] MEDS: ZETIA PO SCH (10:04)
[2017-01-13] MEDS: CARDIZEM PO SCH ×2 (10:07→20:48)
[2017-01-13] MEDS: APRESOLINE PO SCH ×2 (10:08→20:48)
[2017-01-13] MEDS: ELIQUIS PO SCH ×2 (10:08→20:50)
[2017-01-13] MEDS: MYRBETRIQ PO SCH (10:09)
[2017-01-13] MEDS: CATAPRES PO SCH ×2 (10:10→20:51)
[2017-01-13] MEDS: LANOXIN PO SCH (10:10)
[2017-01-14] MEDS: XOPENEX 1.25 MG NEB SCH ×4 (05:15→23:48)
[2017-01-14 05:19] LABS: BASOPHILS % (AUTO) 0.1 % (0.0-3.0); HEMATOCRIT 30.5 % (42.0-52.0); HEMOGLOBIN 9.8 g/dl (14.0-18.0); IMMATURE GRANULOCYTE % (AUTO) 0.5 % (0.0-5.0); LYMPHOCYTES # (AUTO) 0.4 K/uL (0.60-3.4); LYMPHOCYTES % (AUTO) 3.7 (10.0-50.0); MEAN CORPUSCULAR HEMOGLOBIN 26.8 pg (27.0-31.0); MEAN CORPUSCULAR HGB CONC 32.1 (31.8-35.4); MEAN CORPUSCULAR VOLUME 83.6 fl (80.0-94.0); MONOCYTES # (AUTO) 0.2 K/uL (0.4-2.0); MONOCYTES % (AUTO) 2.4 (0-10); NEUTROPHILS # (AUTO) 9.4 K/ul (2.0-6.9); NEUTROPHILS % (AUTO) 93.3; PLATELET COUNT 233 10^3/uL (140-440); RED BLOOD COUNT 3.65 10^6/ul (4.70-6.10); WHITE BLOOD COUNT 10.02 K/ul (4.2-10.2)
[2017-01-14] MEDS: TORADOL IVP SCH ×3 (05:30→23:36)
[2017-01-14] MEDS: PROTONIX PO SCH ×2 (05:31→18:03)
[2017-01-14] MEDS: SOLU-CORTEF 250 MG IVP SCH ×3 (05:31→23:41)
[2017-01-14] MEDS: HUMULIN R SUBCUT PRN ×4 (05:44→20:37)
[2017-01-14 05:55] LABS: ALBUMIN 2.7 g/dL (3.4-5.0); ALBUMIN/GLOBULIN RATIO 0.68; BILIRUBIN,TOTAL 0.4 mg/dL (0.00-1.20); BUN/CREATININE RATIO 13.45; CALCIUM 9.1 mg/dL (8.2-10.2); TOTAL PROTEIN 6.7 g/dL (5.8-8.1)
[2017-01-14 06:15] LABS: CREATININE 3.79 mg/dL (0.60-1.10)
[2017-01-14] MEDS ORDERED: MICRO-K CAP PO SCH ×2 (09:00)
[2017-01-14] MEDS: K-DUR PO SCH ×4 (10:43→23:35)
[2017-01-14] MEDS: FLONASE NAS PRN (10:43)
[2017-01-14] MEDS: ELIQUIS PO SCH ×2 (10:44→23:34)
[2017-01-14] MEDS: APRESOLINE PO SCH ×2 (10:44→23:34)
[2017-01-14] MEDS: BUMEX PO SCH ×2 (10:44→23:35)
[2017-01-14] MEDS: COREG PO SCH (10:45)
[2017-01-14] MEDS: CATAPRES PO SCH ×2 (10:45→23:36)
[2017-01-14] MEDS: CARDIZEM PO SCH ×2 (10:45→23:33)
[2017-01-14] MEDS: ZETIA PO SCH (10:46)
[2017-01-14] MEDS: MYRBETRIQ PO SCH (10:46)
[2017-01-15] MEDS: XOPENEX 1.25 MG NEB SCH ×2 (05:06→11:16)
[2017-01-15 05:51] VITALS: BP 162/68; TEMP 98.2
[2017-01-15 05:53] LABS: BASOPHILS % (AUTO) 0.1 % (0.0-3.0); HEMATOCRIT 31.1 % (42.0-52.0); HEMOGLOBIN 10.2 g/dl (14.0-18.0); IMMATURE GRANULOCYTE % (AUTO) 0.7 % (0.0-5.0); LYMPHOCYTES # (AUTO) 0.3 K/uL (0.60-3.4); LYMPHOCYTES % (AUTO) 2.9 (10.0-50.0); MEAN CORPUSCULAR HEMOGLOBIN 27.4 pg (27.0-31.0); MEAN CORPUSCULAR HGB CONC 32.8 (31.8-35.4); MEAN CORPUSCULAR VOLUME 83.6 fl (80.0-94.0); MONOCYTES # (AUTO) 0.2 K/uL (0.4-2.0); NEUTROPHILS # (AUTO) 9.4 K/ul (2.0-6.9); NEUTROPHILS % (AUTO) 94.3; PLATELET COUNT 247 10^3/uL (140-440); RED BLOOD COUNT 3.72 10^6/ul (4.70-6.10); WHITE BLOOD COUNT 9.98 K/ul (4.2-10.2)
[2017-01-15 06:30] LABS: ALBUMIN 2.7 g/dL (3.4-5.0); ALBUMIN/GLOBULIN RATIO 0.68; ANION GAP 14.3; BILIRUBIN,TOTAL 0.38 mg/dL (0.00-1.20); BUN/CREATININE RATIO 15.53; POTASSIUM 3.3 mmol/L (3.5-5.1); TOTAL PROTEIN 6.7 g/dL (5.8-8.1)
[2017-01-15 06:49] LABS: CREATININE 3.99 mg/dL (0.60-1.10)
[2017-01-15] MEDS: HUMULIN R SUBCUT PRN ×2 (08:11→11:31)
[2017-01-15] MEDS: PROTONIX PO SCH (08:11)
[2017-01-15] MEDS: SOLU-CORTEF 250 MG IVP SCH (08:16)
[2017-01-15] MEDS: ZETIA PO SCH (08:20)
[2017-01-15] MEDS: CARDIZEM PO SCH (08:20)
[2017-01-15] MEDS: MYRBETRIQ PO SCH (08:20)
[2017-01-15] MEDS: ELIQUIS PO SCH (08:21)
[2017-01-15] MEDS: BUMEX PO SCH (08:21)
[2017-01-15] MEDS: COREG PO SCH (08:21)
[2017-01-15] MEDS: ZAROXOLYN PO SCH (08:21)
[2017-01-15] MEDS: K-DUR PO SCH ×2 (08:22→13:08)
[2017-01-15] MEDS: CATAPRES PO SCH (08:22)
[2017-01-15] MEDS: APRESOLINE PO SCH (08:22)
[2017-01-15] MEDS ORDERED: K-DUR PO STA (08:33)
--- NOTE | 2017-01-15 09:11 | PCM.PROG ---
Attending Provider: ATTENDING PROVIDER: Dr. JUAN J NATION This patient is seen with Mckenzie Flores, Nurse Practitioner. DATE OF SERVICE: 01/15/17 SUBJECTIVE: This 72 year old BLACK/ M was hospitalized 01/11/17. The patient is lying in bed, alert. He is sleeping better, breathing better. He is able to lay flat. Signs of CHF have significantly improved. The right hand is no longer swollen. REVIEW OF SYSTEMS: CONSTITUTIONAL: No night sweats. No fatigue, malaise, lethargy. No fever or chills. HEENT: Eyes: No visual changes. No eye pain. No eye discharge. ENT: No runny nose. No epistaxis. No sinus pain. No odynophagia. No congestion. RESPIRATORY: Shortness of breath improved. No cough, no congestion. No hemoptysis. CARDIOVASCULAR: No angina symptoms. No CHF symptoms. No atypical chest pain for CAD. No palpitations. No orthopnea.. GASTROINTESTINAL: No abdominal pain. No nausea or vomiting. No diarrhea or constipation. No hematemesis. No hematochezia. GENITOURINARY: No urgency. No frequency. No dysuria. No hematuria. No obstructive symptoms. No discharge. No pain. No significant abnormal bleeding. MUSCULOSKELETAL: No musculoskeletal pain; no joint swelling. NEUROLOGICAL: Awake, alert, oriented to time, place and person. No headache. No neck pain. No syncope. No seizures. No dizziness. PSYCHIATRIC: Not anxious. No depression. No suicidal thoughts. No homicidal thoughts. SKIN: No rash. No lesions. No wounds. ENDOCRINE: No unexplained weight loss. No weight gain. HEMATOLOGIC/LYMPHATIC: No anemia. No purpura. No petechiae. No prolonged or excessive bleeding. No palpable lymph nodes. PHYSICAL EXAMINATION: GENERAL: The patient is awake, alert and oriented, sitting in bed in no distress. VITAL SIGNS: Temperature 98.2 F, Pulse 49, Respiratory Rate 14, BP 162/68, Pulse Ox 98% HEENT: Head normocephalic, atraumatic. Eyes: Extraocular muscles are intact. Pupils are equal, round and reactive to light and accommodation. Ears: No lesions. Nose appeared normal. Throat: No exudate or erythema. NECK: Supple. No JVD, no carotid bruit. No lymphadenopathy or thyromegaly. LUNGS: Diminished breath sounds. Clear to auscultation. Percussion note normal. Chest symmetrical. HEART: S1, S2, no S3. No murmurs. No cyanosis or clubbing. No ascites. Pulses: Dorsalis pedis and posterior tibial pulses +1 to +2 both sides. ABDOMEN: Soft. Non-tender. Bowel sounds active. No CVA tenderness. No mass felt. EXTREMITIES: Trace edema lower extremities improved. Full range of motion of all extremities, equal. NEUROLOGIC: No focal deficit. Cranial nerves II through XII are grossly intact. No headache, no double vision or headache. SKIN: Not dry. Intact. Turgor-normal. LYMPHATIC: No palpable lymph nodes/no lymphedema. MUSCULOSKELETAL: Normal joints with no swelling. Muscle tone is normal. LAB REVIEW: 01/15/17 05:25 01/15/17 05:25 01/15/17 05:25: Sodium 139, Potassium 3.3 L, Chloride 107, Carbon Dioxide 21 L, Anion Gap 14.3, BUN 62 H*, Creatinine 3.99 H*, Estimated GFR (MDRD) 18.00, BUN/ Creatinine Ratio 15.53, Glucose 161 H, Calcium 9.0, Total Bilirubin 0.38, AST 10 L, ALT 8 L, Alkaline Phosphatase 94, Total Protein 6.7, Albumin 2.7 L, Globulin 4.0, Albumin/Globulin Ratio 0.68 01/15/17 05:25: WBC 9.98, RBC 3.72 L, Hgb 10.2 L, Hct 31.1 L, MCV 83.6, MCH 27.4 , MCHC 32.8, RDW Coeff of Emerald 19.0 H, Plt Count 247, Immature Gran % (Auto) 0.7 , Neut % (Auto) 94.3, Lymph % (Auto) 2.9 L, [place] % (Auto) 2.0, Eos % (Auto) 0.0 , Baso % (Auto) 0.1, Immature Gran # (Auto) 0.1, Neut # 9.4 H, Lymph # 0.3 L, [place] # 0.2 L, Eos # 0.0, Baso # 0.0 01/14/17 18:13: Glucose 153 H 01/14/17 04:30: Digoxin < 0.30 L ASSESSMENT: 1. HYPOKALEMIA 2. ACUTE SHORTNESS OF BREATH, IMPROVED 3. ACUTE CHF IMPROVED 4. RIGHT HAND GOUT, RESOLVING 5. CHRONIC KIDNEY DISEASE STAGE 4 PLAN: 1. Hold Zaroxolyn 2. PFT 3. Repeat chest x-ray 4. D/C home 5. K-Tab 20 mEQ twice a day for 3 days 6. Will see in followup on 7. Prednisone 10 mg b.i.d. for 5 days 8. Echo if not done Plan and coordination of the patient's care discussed in the presence of Hemodialysis Charge Nurse and nurse. CONDITION: Stable SCRIBED BY: Valerie CERVANTES scribed while in presence of service performed by Dr. Nation/Mckenzie Flores APRN on 01/15/17 ([id number])
--- NOTE | 2017-01-15 10:44 | PN ---
DATE OF SERVICE: 01/11/17 ADMIT NOTE SUBJECTIVE: 72 year old black male hospitalized with right hand pain, swelling and edema. The patient has history of gouty arthritis. The patient's uric acid level was 10.7. The patient has throbbing type of pain. The patient also has renal failure followed by Derrick Helper. When I examined him in the hospital of course his complaint was right arm, forearm pain with swelling but he said that he hasn 't slept for four days because of shortness of breath. I asked him if the pain was the main factor for not sleeping but 3-4 nights and he said "No" the main problem was his shortness of breath on minimal exertion. This patient has gained weight and he is noncompliant of his diet, salt intake or fluid intake. The patient also has severe chronic lung disease along with congestive heart failure. PHYSICAL EXAMINATION: HEENT: Head normocephalic, atraumatic. Eyes: Extraocular muscles are intact. Pupils are equal, round and reactive to light and accommodation. Ears: No lesions. Nose appeared normal. Throat: No exudate or erythema. NECK: Supple. JVP 2cm, no carotid bruit. No lymphadenopathy or thyromegaly. LUNGS: Decreased breath sounds. Few crepitation but mild wheeze. Percussion note normal. Chest symmetrical. HEART: S1, S2, no S3. No murmurs. No cyanosis or clubbing. No ascites. Pulses: Dorsalis pedis and posterior tibial pulses +1 to +2 both sides. ABDOMEN: Protuberant. Soft. Nontender. Bowel sounds active. No CVA tenderness. No mass felt. EXTREMITIES: +2 pitting edema. Full range of motion of all extremities, equal. Right forearm still swollen, tender mildly but he says that he feels a lot better able to move, pain on scale of 1-10 used to be 8 or 9 now down to 2- 3. NEUROLOGIC: No focal deficit. Cranial nerves II through XII are grossly intact. No headache, no double vision or headache. SKIN: Not dry. Intact. Turgor - normal. LYMPHATIC: No palpable lymph nodes/no lymphedema. MUSCULOSKELETAL: Normal joints with no swelling. Muscle tone is normal. ASSESSMENT: 1. Acute gouty arthritis, involving right forearm 2. Chronic lung disease with COPD exacerbation 3. Possibility of CHF 4. History of pulmonary embolism 5. Chronic kidney failure 6. Hypertension 7. Dyslipidemia 8. Morbid obesity 9. Noncompliance. PLAN: 1. Colchicine at 0.6mg twice a day for two days 2. Steroids 3. Diet again explained to the patient this patient doesn't follow the diet. 4. Strongly advised to cut down on red meat, beans etc. 5. IV Lasix 40 6. 125mg Solu-Cortef Q 8 7. Elevate the legs 8. Oxygen 2 liters 9. ABG 10. Continue to monitor CBC and CMP CONDITION: Stable TIME SPENT: More than 30 minutes. Plan and coordination of the patient's care discussed in the presence of nurse. ABENA
--- NOTE | 2017-01-15 11:07 | PN ---
DATE OF SERVICE: 01/12/17 SUBJECTIVE: 72 year old black male hospitalized with gout, renal failure but the patient real problem is congestive heart failure and chronic lung disease. The patient was given Lasix yesterday with [employer]. He is feeling a lot better this morning. The chest x-ray done this morning shows pulmonary vascular congestion and CHF. Kidney functions are stable at 3.135 respectively. Blood pressure is somewhat better 180/87. We will reshuffle the medications and put him on Cardizem 120mg twice a day and Hydralazine would be 100mg twice a day. Advised to cut down on his salt intake. Advised to lose weight his BMI is almost to Morbid obesity. He eats whatever he wants to and intelligent but noncompliant. CHF is under control. The patient was seen and examined with Nurse Practitioner and Wildlife Policy Professional. TIME SPENT: More than 60 minutes all together extensive. Plan and coordination of the patient's care discussed in the presence of nurse. ABENA
--- NOTE | 2017-01-15 14:15 | CM.DICTOOL ---
ADMISSION: 01/11/17 10:59 DISCHARGE: 01/15/17 DATE OF SERVICE: 01/15/17 FINAL DIAGNOSIS CONGESTIVE HEART FAILURE ACUTE ON CHRONIC RENAL FAILURE (DR. SEVILLA) HYPOXIA ACUTE GOUT, RIGHT HAND/WRIST HYPERTENSION ATRIAL FIB/FLUTTER CAD DYSLIPIDEMIA CHRONIC LEG EDEMA WITH CHRONIC DERMATITIS GI BLEED BY HISTORY LEFT FEMORAL DVT ([facility]OUS SCAN, 03/26/15) OBSTRUCTIVE SLEEP APNEA ([facility] SLEEP ST[facility], 09/28/15) PULMONARY EMBOLISM BY HISTORY DM, TYPE 2 OBESITY, BMI 38.9 CABG, 1999 CARDIAC STENT, 2001 LAST 2-D ECHO 03-31-16: MODERATE LEFT VENTRICULAR HYPERTROPHY WITH MARKEDLY ENLARGED LEFT ATRIAL CAVITY. NORMAL LEFT VENTRICUALR CONTRACTILITY. NORMAL VALVES. LAST VITALS Temp Pulse Resp BP Pulse Ox 98.2 F 49 L 14 162/68 H 98 01/15/17 05:50 01/15/17 05:50 01/15/17 05:50 01/15/17 05:50 01/15/17 05:50 ACTIVE MEDICATIONS Acetaminophen (Tylenol Ex Str) 500 mg PO BID Albuterol Sulfate (Proair Hfa) 2 puff IH Q6H PRN PRN Reason: Bronchospasm Apixaban (Eliquis) 2.5 mg PO BID [facility] Last Admin: 01/15/17 08:21 Dose: 2.5 mg Bumetanide (Bumex) 1 mg PO BID [facility] Last Admin: 01/15/17 08:21 Dose: 1 mg Calcitriol 0.5 mcg PO DAILY Carvedilol (Coreg) 25 mg PO BIDWM [facility] Last Admin: 01/15/17 08:21 Dose: 25 mg Colchicine (Colcrys) 0.6 mg PO PRN Digoxin (Lanoxin) 125 mcg PO DAILY on MO,WE,SUN AND SAT Diltiazem HCl (Cardizem) 90 mg PO BID [facility] (CHANGED FROM 60 MG PO TID) Last Admin: 01/15/17 08:20 Dose: 90 mg Ergocalciferol (Vit D2) 50,000 Units PO MONTHLY Ezetimibe (Zetia) 10 mg PO DAILY [facility] Last Admin: 01/15/17 08:20 Dose: 10 mg Hydralazine HCl (Apresoline) 100 mg PO BID [facility] (CHANGED FROM 50 MG PO TID) Last Admin: 01/15/17 08:22 Dose: 100 mg Linagliptin (Tradjena) 5 mg PO TID Metolazone (Zaroxolyn) 2.5 mg PO ,,SUN AND SAT [facility] Mometasone Furoate (Nasonex) 2 sprays SHERRELL DAILY Mupirocin (Bactroban) 1 application TP BID Nitroglycerin (Nitrostat) 0.4 mg SL PRN [facility] Pantoprazole Sodium (Protonix) 40 mg PO BIDAC [facility] Last Admin: 01/15/17 08:11 Dose: 40 mg Potassium Chloride (K-Dur) 10 meq PO DAILY ON ,,SUN AND SUN [facility] Last Admin: 01/15/17 13:08 Dose: 20 meq ALLERGIES Penicillins Adverse Reaction (Verified 01/11/17 09:26) NEW PRESCRIPTIONS: RESUME YOUR HOME MEDICATIONS PER LIST PROVIDED BY THE NURSING STAFF PLEASE NOTE THE CHANGE IN DIGOXIN (LANOXIN) TO 125 MCG BY MOUTH ON , SUN, SUN AND SAT PLEASE NOTE THE CHANGE IN CARDIZEM (DILTIAZEM) TO 90 MG TWICE DAILY PLEASE NOTE THE CHANGE IN HYDRALAZINE (APRESOLINE) TO 100 MG TWICE DAILY NEW PRESCRIPTIONS PREDNISONE 10 MG, TAKE ONE TABLET BY MOUTH TWICE DAILY WITH FOOD FOR 5 DAYS CLONIDINE (CATAPRES) 0.1 MG, TAKE ONE TABLER BY MOUTH TWICE DAILY CARDIZEM 90 MG, TAKE ONE TABLET BY MOUTH TWICE DAILY HYDRALAZINE HCL (APRESOLINE) 100 MG, TAKE ONE TABLET BY MOUTH TWICE DAILY SMOKING: NONSMOKER DISEASE SPECIFIC EDUCATION: GOUT CHG RENAL FAILURE KIDNEY DISEASE HYPOKALEMIA A-FIB/FLUTTER HOME MEDICATIONS NEW PRESCRIPTIONS FOLLOW UP LAB REVIEW: 01/15/17 05:25 01/15/17 05:25 01/15/17 05:25: Sodium 139, Potassium 3.3 L, Chloride 107, Carbon Dioxide 21 L, Anion Gap 14.3, BUN 62 H*, Creatinine 3.99 H*, Estimated GFR (MDRD) 18.00, BUN/ Creatinine Ratio 15.53, Glucose 161 H, Calcium 9.0, Total Bilirubin 0.38, AST 10 L, ALT 8 L, Alkaline Phosphatase 94, Total Protein 6.7, Albumin 2.7 L, Globulin 4.0, Albumin/Globulin Ratio 0.68 01/15/17 05:25: WBC 9.98, RBC 3.72 L, Hgb 10.2 L, Hct 31.1 L, MCV 83.6, MCH 27.4 , MCHC 32.8, RDW Coeff of Emerald 19.0 H, Plt Count 247, Immature Gran % (Auto) 0.7 , Neut % (Auto) 94.3, Lymph % (Auto) 2.9 L, [place] % (Auto) 2.0, Eos % (Auto) 0.0 , Baso % (Auto) 0.1, Immature Gran # (Auto) 0.1, Neut # 9.4 H, Lymph # 0.3 L, [place] # 0.2 L, Eos # 0.0, Baso # 0.0 01/14/17 18:13: Glucose 153 H PLAN: DISCHARGE HOME TODAY RETURN TO SEE DR. NATION ON 01/18/17 AT RESUME YOUR HOME MEDICATIONS PER LIST PROVIDED BY THE NURSING STAFF PLEASE NOTE THE CHANGE IN DIGOXIN TO 125 MCG BY MOUTH ON , SUN, SUN AND SAT ONLY PLEASE NOTE THE CHANGE IN CARDIZEM TO 90 MG TWICE DAILY PLEASE NOTE THE CHANGE IN HYDRALAZINE (APRESOLINE) TO 100 MG TWICE DAILY NEW PRESCRIPTIONS PREDNISONE 10 MG, TAKE ONE TABLET BY MOUTH TWICE DAILY WITH FOOD FOR 5 DAYS CLONIDINE (CATAPRES) 0.1 MG, TAKE ONE TABLER BY MOUTH TWICE DAILY CARDIZEM 90 MG, TAKE ONE TABLET BY MOUTH TWICE DAILY ACTIVITY GET PLENTY OF REST AT HOME. GRADUALLY INCREASE YOUR ACTIVITY LEVEL ACCORDING TO YOUR TOLERATION DIET CHRONIC KIDNEY DISEASE DIET SUMMARY THE PATIENT IS ALERT AND ORIENTED X3. HE CURRENTLY RESIDES AT HOME WITH HIS SPOUSE AND DESIRES TO RETURN THERE AT DISCHARGE. HE IS INDEPENDENT WITH ADL'S BUT AT TIMES OF ILLNESS REQUIRES ASSISTANCE FROM HIS SPOUSE. AT HOME HE HAS A POWER CHAIR, ROLLING WALKER, CANE, BEDSIDE COMMODE, SHOWER CHAIR, GLUCOMETER AND BLOOD SUGAR TESTING SUPPLIES AND A C-PAP FOR NIGHT TIME USE. MR. HERNANDEZ DOES NOT CURRENTLY UTILIZE HOME HEALTH SERVICES OR HOMEMAKING SERVICES. HIS SKIN TURGOR IS INTACT AND WITHOUT DECUBITUS ULCERS. HIS HYDRATION AND NUTRITIONAL STATUS IS GOOD. HE IS AWARE AND AGREEABLE FOR TODAY'S DISCHARGE PLANS. CURRENT CODE STATUS FULL CODE SIM AYERS APRN JUAN J NATION M.D.
--- NOTE | 2017-01-15 14:55 | DI ---
EXAM: PA and lateral views of the chest HISTORY: Shortness of breath follow-up COMPARISON: Chest x-ray 01/12/2017 and multiple priors including CT chest 03/29/2016 FINDINGS: The cardiomediastinal silhouette is unchanged with intact sternotomy wires and surgical cl ips. There is no pneumothorax or pleural effusion. There is pulmonary vascular indistinctness. The re is flattening of the diaphragm. There is no consolidation, nodule or mass. The osseous structure s demonstrate scattered degenerative disease. IMPRESSION: 1. Cardiomegaly with pulmonary vascular indistinctness suggestive of pulmonary edema. 2. Multilevel degenerative disease of the spine. 3. Flattening of the diaphragm is suggestive of a a component of obstructive pulmonary physiology.
--- NOTE | 2017-01-16 10:33 | PN ---
DATE OF SERVICE: 01/13/17 SUBJECTIVE: 72 year old black male hospitalized with gout of right forearm which seems to be under control. Not much pain but still swelling is there. His other problem is congestive heart failure he has on admission. He was orthopneic for 4 days and not he is feeling better. There is no orthopnea. REVIEW OF SYSTEMS: CONSTITUTIONAL: No night sweats. No fatigue, malaise, lethargy. No fever or chills. HEENT: Eyes: No visual changes. No eye pain. No eye discharge. ENT: No runny nose. No epistaxis. No sinus pain. No sore throat. No odynophagia. No congestion. RESPIRATORY: No cough, no congestion. No hemoptysis. No shortness of breath. CARDIOVASCULAR: No angina symptoms. No CHF symptoms. No atypical chest pain for CAD. No palpitations. No orthopnea. GASTROINTESTINAL: No abdominal pain. No nausea or vomiting. No diarrhea or constipation. No hematemesis. No hematochezia. GENITOURINARY: No urgency. No frequency. No dysuria. No hematuria. No obstructive symptoms. No discharge. No pain. No significant abnormal bleeding. MUSCULOSKELETAL: No musculoskeletal pain; no joint swelling. NEUROLOGICAL: No headache. No neck pain. No syncope. No seizures. No dizziness. PSYCHIATRIC: Not anxious. No depression. No suicidal thoughts. No homicidal thoughts. SKIN: No rash. No lesions. No wounds. ENDOCRINE: No unexplained weight loss. No weight gain. HEMATOLOGIC/LYMPHATIC: No anemia. No purpura. No petechiae. No prolonged or excessive bleeding. No palpable lymph nodes. PHYSICAL EXAMINATION: HEENT: Head normocephalic, atraumatic. Eyes: Extraocular muscles are intact. Pupils are equal, round and reactive to light and accommodation. Ears: No lesions. Nose appeared normal. Throat: No exudate or erythema. NECK: Supple. No JVD, no carotid bruit. No lymphadenopathy or thyromegaly. LUNGS: Decreased breath sound with few creps but good air entry. Percussion note normal. Chest symmetrical. HEART: S1, S2, no S3. No murmurs. No cyanosis or clubbing. No ascites. Pulses: Dorsalis pedis and posterior tibial pulses +1 to +2 both sides. ABDOMEN: Soft. Nontender. Bowel sounds active. No CVA tenderness. No mass felt. EXTREMITIES: No edema. Full range of motion of all extremities, equal. NEUROLOGIC: No focal deficit. Cranial nerves II through XII are grossly intact. No headache, no double vision or headache. SKIN: Not dry. Intact. Turgor - normal. LYMPHATIC: No palpable lymph nodes/no lymphedema. MUSCULOSKELETAL: Normal joints with no swelling. Muscle tone is normal. LABS: Kidney functions are deteriorated some now the creatinine is 3.2 and BUN 40, initially it was 3.18 with 35. ASSESSMENT: 1. Gouty arthritis, seems to be under control 2. Acute CHF seems to have resolved 3. Chronic lung disease 4. History of pulmonary embolism 5. Anemia 6. Chronic renal failure 7. Hypokalemia PLAN: 1. Give some potassium supplement 2. Continue to watch for congestive heart failure 3. Give IV Lasix as needed 4. The patient has multiple medical problems like chronic renal failure makes it very difficult for his congestive heart failure to be treated. 5. Gouty arthritis diet discussed 6. The patient is noncompliant of diet, he is intelligent 7. He is morbidly obese, diet for weight loss discussed CONDITION: Stable PROGNOSIS: Poor TIME SPENT: More than 30 minutes. Plan and coordination of the patient's care discussed in the presence of nurse. ABENA
--- NOTE | 2017-01-16 14:52 | PN ---
DATE OF SERVICE: 01/14/17 SUBJECTIVE: 72 year old black male hospitalized with gout right forearm and patient's other problem at the same time was CHF which seems to have resolved. Resulted effect of aggressive diuresis which was done for a couple of day dipped his renal function into creatinine of 3.79 with BUN 51 at admission it was 3.1 with BUN Of 40. His estimated GFR is 90cc per minute. According to the patient he feels a lot better. The pain in the right forearm is practically resolved. REVIEW OF SYSTEMS: CONSTITUTIONAL: No night sweats. No fatigue, malaise, lethargy. No fever or chills. HEENT: Eyes: No visual changes. No eye pain. No eye discharge. ENT: No runny nose. No epistaxis. No sinus pain. No sore throat. No odynophagia. No congestion. RESPIRATORY: No cough, no congestion. No hemoptysis. No shortness of breath. CARDIOVASCULAR: No angina symptoms. No CHF symptoms. No atypical chest pain for CAD. No palpitations. No orthopnea. No PND. Able to sleep better. GASTROINTESTINAL: No abdominal pain. No nausea or vomiting. No diarrhea or constipation. No hematemesis. No hematochezia. GENITOURINARY: No urgency. No frequency. No dysuria. No hematuria. No obstructive symptoms. No discharge. No pain. No significant abnormal bleeding. MUSCULOSKELETAL: No musculoskeletal pain; no joint swelling. NEUROLOGICAL: No headache. No neck pain. No syncope. No seizures. No dizziness. PSYCHIATRIC: Not anxious. No depression. No suicidal thoughts. No homicidal thoughts. SKIN: No rash. No lesions. No wounds. ENDOCRINE: No unexplained weight loss. No weight gain. HEMATOLOGIC/LYMPHATIC: No anemia. No purpura. No petechiae. No prolonged or excessive bleeding. No palpable lymph nodes. PHYSICAL EXAMINATION: VITAL SIGNS: Temperature 97.5, pulse 55, respiratory rate 20, blood pressure 166 /79 and pulse ox 96%. HEENT: Head normocephalic, atraumatic. Eyes: Extraocular muscles are intact. Pupils are equal, round and reactive to light and accommodation. Ears: No lesions. Nose appeared normal. Throat: No exudate or erythema. NECK: Supple. No JVD, no carotid bruit. No lymphadenopathy or thyromegaly. LUNGS: Decreased breath sounds but clear to auscultation. Percussion note normal. Chest symmetrical. HEART: S1, S2, no S3. No murmurs. No cyanosis or clubbing. No ascites. Pulses: Dorsalis pedis and posterior tibial pulses +1 to +2 both sides. ABDOMEN: Soft. Nontender. Bowel sounds active. No CVA tenderness. No mass felt. EXTREMITIES: No edema. Full range of motion of all extremities, equal. NEUROLOGIC: No focal deficit. Cranial nerves II through XII are grossly intact. No headache, no double vision or headache. SKIN: Not dry. Intact. Turgor - normal. LYMPHATIC: No palpable lymph nodes/no lymphedema. MUSCULOSKELETAL: Normal joints with no swelling. Muscle tone is normal. LABS: Hgb 9.8, hct 30, WBC 10,000 normal differential, potassium 3, creatinine 3.7, BUN 51. ASSESSMENT: 1. Gouty right forearm resolved 2. CHF under control 3. Kidney failure seems to be have worsened because of aggressive diuretic therapy 4. Hypokalemia PLAN: 1. will given K-Dur 20meq four times a day surprising considering the patient' s renal failure 2. Will hold Carvedilol dose because of bradyarrhythmias 3. The patient has atrial flutter with rate of 45-50 while he is resting. 4. The patient's blood pressure is good, the slow pulse rate is able to support his blood pressure no need treat hypertension 5. The patient has been put on Clonidine he has been continued Carvedilol and Cardizem 6. The patient's Hydralazine dose has been increased to 100mg twice a day 7. Some outpatient doesn't seem to be on VALARIE or ARB will look into that. 8. The patient is being followed by Checker CONDITION: Stable The patient's main problem is noncompliance. He is noncompliant of his lifestyle , diet, medications and he is intelligent but can't help it. Diet for acute gout discussed PROGNOSIS: Poor. TIME SPENT: More than 30 minutes. Plan and coordination of the patient's care discussed in the presence of nurse. ABENA
--- NOTE | 2017-01-17 09:34 | PN ---
DATE OF SERVICE: 01/15/17 SUBJECTIVE: 72 year old black male hospitalized with acute gouty arthritis of the right forearm which has completely resolved. His other problem was congestive heart failure from which he was treated aggressively with diuretic. The patient's kidney function deteriorated but has been within his own range normal and has chronic renal failure. He doesn't have any symptoms of CHF. ASSESSMENT: 1. The patient has endstage renal disease 2. Congestive heart failure 3. Hypertrophic cardiomyopathy 4. Coronary artery disease 5. Severe hypertensive 6. Obesity almost morbid 7. Noncompliant of his medications. PLAN: 1. Discharged home 2. EGFR is 18 which is usually 18-20. 3. He is advised to lost weight 4. Counseling for lifestyle modification done PROGNOSIS: Poor considering his noncompliance the patient is intelligent CONDITION:Stable TIME SPENT: More than 30 minutes. The patient was seen and examined with Nurse Practitioner Plan and coordination of the patient's care discussed in the presence of nurse. ABENA
--- NOTE | 2017-01-17 09:36 | PN ---
01/11/17: Level 5 01/12/17: Extensive 01/13/17: Intermediate 01/14/17: Intermediate 01/15/17: D as in discharge MTDD
--- NOTE | 2017-01-18 11:26 | DS ---
DATE OF SERVICE: 01/15/17 FINAL DIAGNOSIS: 1. Congestive heart failure 2. Acute on chronic renal failure (Dr. Leahy) 3. Hypoxia 4. Acute Gout, Right hand/wrist 5. Hypertension 6. Atrial Fib/Flutter 7. CAD 8. Dyslipidemia 9. Chronic leg edema with chronic dermatitis 10.GI bleed By History 11.Left femoral DVT (Venous scam, 03/26/15) 12.Obstructive sleep apnea ([facility] SLEEP [facility], 09/28/15) 13.Pulmonary embolism by history 14.Diabetes Mellitus, type 2 15.Obesity, BMI 38.9 16.CABG, 1999 17.Cardiac stent, 2001 18.Last 2-D echo 03/31/16: Moderate ventricular hypertrophy with markedly enlarged left atrial cavity. Normal ventricular contractility. Normal Valves. LAST VITALS: Temperature 98.2, pulse 49, respiratory rate 14, blood pressure 162/68 and pulse ox 98%. DISCHARGE INSTRUCTIONS: Discharge home today. Return to see Dr. Aragon on , 01/18/17. Resume home medication as per list provided by the nursing staff. MEDICATIONS AT DISCHARGE: Tylenol EX Str 500mg Po twice a day ProAir 2 puffs IH Q 6 hours PRN Eliquis 2.5ng PO twice a day Bumex 1mg Po twice a day Calcitriol 0.5mcg PO daily Colcrys 0.6mg PO PRN Lanoxin 125jcg PO daily on , , SUN and SAT Cardizem 90mg PO twice a day(changed to 60mg PO three times a day) Vitamin D2 50,000 units PO monthly Zetia 10mg PO daily Apresoline 100mg PO twice a day (CHANGED FROM 50MG PO THREE TIMES A DAY) Tradjenta 5mg PO threes times a day Zaroxolyn 2.5mg PO , , SUN and SAT Nasonex two sprays SHERRELL Daily Bactroban one application TP twice a day Nitrostat 0.4mg SL PRN Protonix 40mg PO twice a day K-Dur 10 meq PO daily on , , SUN and SAT ALLERGIES: Penicillins NEW PRESCRIPTIONS: Resume home medications as per list provided by the nursing staff. Please note the change in Digoxin (Lanoxin) to 125mcg by mouth on , SUN, DRI and SAT Please note the change in Cardizem (Diltiazem) to 90mg Twice daily Please note the change in Hydralazine (Apresoline) to 100mg twice daily Prednisone 10mg, take one tablet by mouth twice daily with food for 5 days Clonidine(CATAPRES) 0.1mg take one tablet by mouth twice daily Cardizem 90mg take one tablet by mouth twice daily Hydralazine HCL (APRESOLINE) 100mg take one tablet by mouth twice daily DIET INSTRUCTIONS: Chronic kidney disease diet ACTIVITY: Get plenty of rest at home. Gradually increase activity level according to toleration. SMOKING: Nonsmoker DISEASE SPECIFIC EDUCATION: Gout CHG Renal failure Kidney disease Hypokalemia Atrial fibrillation/flutter Home medications New prescriptions Followup HOSPITAL COURSE: This is a 72 year old male who presented to the emergency room complaining of right hand pain and swelling and shortness of breath which had worsened over the past several days. It was found that his uric acid level was elevated at 10.7. He has a history of gout. His chest x-ray revealed vascular congestion and pulmonary edema. He has a history of severe chronic kidney disease stage 4 as well as CHF. On admission the patient's BUN was around 60 which is normal for him. Blood pressure has been elevated. He was placed on Toradol 30mg IV Q 8 hours for pain of the right arm. He was given Colcrys 0.6mg twice a day for three days due to the gout as well as Solu-Cortef 125mg Q 8 hours IV. Due to the vascular congestion he was given extra Lasix 40mg IV and due to this elevated blood pressure was up to 190/107 on admission we added Catapres 0.1mg twice a day. His BNP on admission was 1,349. Over the course of several days he has significantly improved. He had on history has given symptoms of orthopnea which had been worsening over the past two weeks. He stated that he had been unable to lay flat for about two weeks. This morning whenever I saw him he stated that he had slept flat last night and was feeling much better. His hand swelling had improved within about 36 hours after admission and is no longer an issue. It took a few days for his breathing to slowly improve into diurese. This morning he had trace edema in his lower extremities with wrinkling due to loss of fluid. His lungs sounds were diminished but equal and clear. He was no longer coughing. He did not feel short of breath. He does not wear oxygen at home. His kidney function has slightly worsened but this is due to being treated with diuretics again this is somewhat normal for him. He sees a aerologist for his chronic kidney disease. We will change is dose of Digoxin. His Digoxin level was low while tested in the hospital but due to his kidney function we will put him on Digoxin only four days a week; Mo, WE, FRI and SAT. He will continue with his Xaroxolyn MO, WE, FRI and SAT as well. We will recheck his Digoxin level in a few day in the office. He was slightly hypokalemic today at 3.3 however again he has been on aggressive diuretic therapy due to the CHF. We ill give him an extra 80mg of Potassium today and then he will resume his normal Potassium with his Xaroxolyn during the week. He will go home on the Catapres which is new. He is not on an Franklin or ARB due to this kidney function. Again upon discharge he is significantly improved. We will send him on with weaning dose of Prednisone 20mg twice a day for three days and 10mg twice a day for 5 days. We will see him in the office on . TIME SPENT: More than 60 minutes. ABENA
== END 2017-01-15 15:48 | disposition home or self-care (01) | DRG 554 ==
LOC: ED 09:13 → MEDSURG B 10:59
PROVIDERS: ADMIT Internal Medicine; ATTEND Internal Medicine
DX: M10.041 Idiopathic gout, right hand (principal); N17.9 Acute kidney failure, unspecified; N18.4 Chronic kidney disease, stage 4 (severe); J44.1 Chronic obstructive pulmonary disease with (acute) exacerbation; I48.92 Unspecified atrial flutter; I42.2 Other hypertrophic cardiomyopathy; I10 Essential (primary) hypertension; I50.9 Heart failure, unspecified; R06.02 Shortness of breath; R06.01 Orthopnea; R60.0 Localized edema; R09.02 Hypoxemia; I48.91 Unspecified atrial fibrillation; I25.10 Atherosclerotic heart disease of native coronary artery without angina pectoris; E78.5 Hyperlipidemia, unspecified; I51.7 Cardiomegaly; E11.9 Type 2 diabetes mellitus without complications; L30.8 Other specified dermatitis; E66.9 Obesity, unspecified; G47.33 Obstructive sleep apnea (adult) (pediatric); E87.6 Hypokalemia; Z95.1 Presence of aortocoronary bypass graft; Z95.5 Presence of coronary angioplasty implant and graft; Z86.718 Personal history of other venous thrombosis and embolism; Z86.711 Personal history of pulmonary embolism; Z79.01 Long term (current) use of anticoagulants; Z68.38 Body mass index [BMI] 38.0-38.9, adult; Z99.81 Dependence on supplemental oxygen; Z87.19 Personal history of other diseases of the digestive system; Z91.11 Patient's noncompliance with dietary regimen; Z79.899 Other long term (current) drug therapy
CPT/HCPCS: 36415; 80053; 80162; 82550; 82803; 82947; 82962; 83880; 84484; 84550; 85025; 93005; 93010; 94640; 99284